=== PATIENT | female | born 1950 | race Caucasian/White ===

== ENCOUNTER 2016-09-15 17:38 | Inpatient (IN) ==
--- NOTE | 2016-09-15 17:54 | Emergency Department Note ---
Disposition Clinical Impression: CVA (cerebral vascular accident), Pneumonia, Altered mental status, Dehydration , Fever, COPD (chronic obstructive pulmonary disease), CKD (chronic kidney disease) Disposition: Admitted As Inpatient Condition: Fair Referrals: NO,PCP [Primary Care Provider] - Forms: ED Satisfaction Letter Time of Disposition: 20:01 Altered Mental Status HPI - General Chief Complaint: ED Altered Mental Status Stated Complaint: AMS, poss UTI Time Seen by Provider: 09/15/16 17:43 Source: EMS Mode of arrival: EMS Limitations: altered mental status Nursing Notes Reviewed: Yes Vital Signs Reviewed: Yes - History of Present Illness HPI Narrative: This is a 65-year-old female who was brought in for altered mental status and a fever. Patient has a leg bag Galan. Patient's oxygen was also slightly decreased. Patient will not answer any questions although she is alert. There is no family in the room to answer questions. I really have no other history on this patient. Pt was apparently verbal a couple weeks prior to this. MD complaint: altered mental status - Related Data Home Medications Medication Instructions Recorded Confirmed Amlodipine Besylate 10 mg PO DAILY 12/09/15 08/27/16 Benztropine [Cogentin] 1 mg PO BID 12/09/15 08/27/16 Carvedilol [Coreg] 25 mg PO BID 12/09/15 08/27/16 Terazosin [Hytrin] 2 mg PO HS 12/09/15 08/27/16 Simvastatin [Zocor] 40 mg PO HS 02/07/16 08/27/16 Vitamin E (Dl,Tocopheryl Acet) 400 unit PO DAILY 02/07/16 08/27/16 [Vitamin E] Aspirin Enteric Coated [Aspirin EC] 81 mg PO DAILY 05/22/16 08/27/16 Calcium Polycarbophil [Fiber-Caps] 625 mg PO QID PRN 05/22/16 08/27/16 Cholecalciferol (Vitamin D3) 50,000 unit PO QWEEK 07/21/16 08/27/16 [Vitamin D3] Docusate [Colace] 100 mg PO BID PRN 07/21/16 08/27/16 Ferrous Sulfate 325 mg PO TID 07/21/16 08/27/16 Mirtazapine [Remeron] 15 mg PO HS 07/21/16 08/27/16 Oxybutynin [Ditropan] 5 mg PO BID 07/21/16 08/27/16 Quetiapine Fumarate [Seroquel] 300 mg PO HS 07/21/16 08/27/16 RisperiDONE [Risperdal] 1 mg PO HS 07/21/16 08/27/16 Previous Rx's Medication Instructions Recorded Hydralazine HCl 100 mg PO TID 7 Days 08/20/16 Insulin DETEMIR [Levemir] 9 unit SQ BID #100 [id number] 08/29/16 Allergies Allergy/AdvReac Type Severity Reaction Status Date / Time ciprofloxacin [From Cipro] AdvReac Hives Verified 12/09/15 21:28 sulfamethoxazole AdvReac See Verified 12/09/15 21:28 [From Bactrim] Comments trimethoprim [From Bactrim] AdvReac See Verified 12/09/15 21:28 Comments Limitations: ROS unobtainable due to patients medical condition (ams) Past Medical History - Past Medical History Attestation: Yes The following information was validated with the patient. 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 history - Social History Smoking Status: Never smoker Smokeless Tobacco Status: No Alcohol use: Reports: none Drug use: Reports: none Physical Exam - General Limitations: altered mental status General appearance: alert, lethargic, obtunded, cachectic - Head Head exam: atraumatic, normocephalic, normal inspection - Eye Eye exam: Present: normal appearance, PERRL, EOMI - ENT ENT exam: normal exam, mucous membranes dry - Expanded ENT Exam External ear exam: Present: normal external inspection Mouth exam: Present: normal external inspection Teeth exam: Present: normal inspection Throat exam: Present: normal inspection - Neck Neck exam: Present: normal inspection, full ROM, trachea midline - Chest Chest inspection: Present: normal inspection, symmetric chest wall rise - Respiratory Respiratory exam: Present: normal lung sounds bilaterally - Cardiovascular Cardiovascular exam: Present: normal rhythm, tachycardia, normal heart sounds - Abdominal Exam Abdominal exam: Present: soft, Non-Tender. Absent: tenderness, distention, guarding, rebound, rigidity - Extremities Exam Extremities exam: Present: normal inspection, full ROM. Absent: tenderness, pedal edema - Expanded Upper Extremity Exam Shoulder exam: Present: normal inspection, full ROM Arm exam: Present: normal inspection, full ROM Elbow exam: Present: normal inspection, full ROM Forearm/Wrist exam: Present: normal inspection, full ROM Hand exam: Present: normal inspection, full ROM Vascular exam: Normal: capillary refill, radial pulse - Expanded Lower Extremity Exam Hip/Pelvis exam: Present: normal inspection, full ROM Upper leg exam: Present: normal inspection, full ROM Knee exam: Present: normal inspection, full ROM Lower leg exam: Present: normal inspection, full ROM Ankle exam: Present: normal inspection, full ROM Foot/toe exam: Present: normal inspection, full ROM Neurovascular/Tendon exam: Absent: motor deficit, sensory deficit, tendon deficit - Back Exam Back exam: Present: normal inspection, full ROM. Absent: tenderness - Neurological Exam Neurological exam: Present: alert. Absent: oriented X3 - Expanded Neurological Exam Coma Scale Eye Opening: Spontaneous Coma Scale Motor Response: Localizes to Pain Coma Scale Verbal Response: Incomprehensible Coma Scale Total: 11 - Psychiatric Psychiatric exam: Present: normal affect, normal mood - Skin Skin exam: Present: warm, dry, intact, normal color, other (flushed warm skin) Course - Consultations Consultation #1: I spoke with Hospitalist (Dr. Lewis) okay to admit. Time: 20:39 Vital Signs Temperature 100.7 F H 09/15/16 17:41 Pulse Rate 108 09/15/16 17:41 Respiratory Rate 14 09/15/16 17:41 Blood Pressure 192/89 09/15/16 17:41 O2 Sat by Pulse Oximetry 96 09/15/16 17:41 Temperature 100.7 F H 09/15/16 17:41 Pulse Rate 82 09/15/16 19:56 Respiratory Rate 18 09/15/16 19:56 Blood Pressure 195/83 09/15/16 19:56 O2 Sat by Pulse Oximetry 97 09/15/16 19:56 Oxygen Delivery Oxygen Delivery Nasal Cannula Altered Mental Status - Medical Records Medical records reviewed: Yes I reviewed the patient's medical records. - Lab Data Lab results reviewed: Yes I reviewed the patient's lab results. Result diagrams: 09/15/16 19:15 09/15/16 19:15 Lab Results 09/15/16 09/15/16 09/15/16 Range/Units 19:15 19:15 19:15 WBC 12.2 H (4.3-11.1) K/mcL RBC 3.26 L (3.82-4.97) M/mcL Hgb 9.0 L (11.5-15.4) g/dL Hct 30.5 L (35.3-44.9) % MCV 93.6 (83.0-100.0) fL MCH 27.6 L (28.0-33.3) pg MCHC 29.5 L (31.6-35.5) g/dL RDW 14.1 (11.5-14.5) % Plt Count 212 (140-400) K/mcL MPV 9.7 (9.4-12.4) fL Immature Gran % 0.3 (0-4) % Seg Neutrophils % 71.1 % Lymphocytes % 19.7 % Monocytes % 7.0 % Eosinophils % 1.6 % Basophils % 0.3 % Neutrophils # 8.7 (1.6-8.9) K/mcL Lymphocytes # 2.4 (0.6-4.6) K/mcL Monocytes # 0.9 (0.0-1.3) K/mcL Eosinophils # 0.2 (0.0-0.6) K/mcL Basophils # 0.0 (0.0-0.2) K/mcL Nucleated RBCs/100 WBC 0.2 H (0) /100 WBC PT 11.1 (9.4-12.1) Seconds INR 1.0 APTT 28.1 (26.0-36.0) Seconds Sodium 148 H (136-145) mEq/L Potassium 3.0 L (3.5-4.5) mEq/L Chloride 114 H (98-109) mEq/L Carbon Dioxide 29 (19-29) mEq/L BUN 21 H (7-20) mg/dL Creatinine 2.42 H (0.57-1.11) mg/dL Est GFR ( Amer) 24 L (> 60) Est GFR (Non-Af Amer) 20 L (> 60) BUN/Creatinine Ratio 9 (6-26) Glucose 159 H (70-99) mg/dL Calculated Osmolality 312 H (280-300) Lactic Acid (0.5-2.2) mmol/L Calcium 10.8 (8.6-10.8) mg/dL Total Bilirubin 0.2 (0.2-1.2) mg/dL Direct Bilirubin 0.1 (0.0-0.5) mg/dL Indirect Bilirubin 0.1 (0.0-1.2) mg/dL AST 14 (5-34) Units/L ALT 9 (0-55) Units/L Alkaline Phosphatase 57 (38-126) Units/L Troponin I (0-0.03) ng/mL B-Natriuretic Peptide (0-100) pg/mL Serum Total Protein 4.8 L (6.0-8.3) g/dL Albumin 1.7 L (3.5-5.0) g/dL Globulin 3.1 (2.4-3.5) g/dL Albumin/Globulin Ratio 0.5 L (1.1-2.2) Lipase 4 L (8-78) Units/L 09/15/16 09/15/16 09/15/16 Range/Units 19:15 19:15 19:15 WBC (4.3-11.1) K/mcL RBC (3.82-4.97) M/mcL Hgb (11.5-15.4) g/dL Hct (35.3-44.9) % MCV (83.0-100.0) fL MCH (28.0-33.3) pg MCHC (31.6-35.5) g/dL RDW (11.5-14.5) % Plt Count (140-400) K/mcL MPV (9.4-12.4) fL Immature Gran % (0-4) % Seg Neutrophils % % Lymphocytes % % Monocytes % % Eosinophils % % Basophils % % Neutrophils # (1.6-8.9) K/mcL Lymphocytes # (0.6-4.6) K/mcL Monocytes # (0.0-1.3) K/mcL Eosinophils # (0.0-0.6) K/mcL Basophils # (0.0-0.2) K/mcL Nucleated RBCs/100 WBC (0) /100 WBC PT (9.4-12.1) Seconds INR APTT (26.0-36.0) Seconds Sodium (136-145) mEq/L Potassium (3.5-4.5) mEq/L Chloride (98-109) mEq/L Carbon Dioxide (19-29) mEq/L BUN (7-20) mg/dL Creatinine (0.57-1.11) mg/dL Est GFR ( Amer) (> 60) Est GFR (Non-Af Amer) (> 60) BUN/Creatinine Ratio (6-26) Glucose (70-99) mg/dL Calculated Osmolality (280-300) Lactic Acid 0.5 (0.5-2.2) mmol/L Calcium (8.6-10.8) mg/dL Total Bilirubin (0.2-1.2) mg/dL Direct Bilirubin (0.0-0.5) mg/dL Indirect Bilirubin (0.0-1.2) mg/dL AST (5-34) Units/L ALT (0-55) Units/L Alkaline Phosphatase (38-126) Units/L Troponin I 0.07 H* (0-0.03) ng/mL B-Natriuretic Peptide 396 H (0-100) pg/mL Serum Total Protein (6.0-8.3) g/dL Albumin (3.5-5.0) g/dL Globulin (2.4-3.5) g/dL Albumin/Globulin Ratio (1.1-2.2) Lipase (8-78) Units/L - Radiology Data Radiology results reviewed: Yes I reviewed the patient's radiology results. - EKG Data EKG attestation: Yes I reviewed and interpreted this EKG. EKG shows normal: sinus rhythm Rate: normal Rhythm: NSR [place]/QRS: normal Interpretation: no acute changes, nonspecific ST-T wave changes TPA Checklist - LKW: 3-4.5 hrs Add. Contraindications Patient/family understanding: The patient/family members have been counseled and understood the risk, benefit , and alternatives of treatment.
[2016-09-15] MEDS ORDERED: 0.9 % Sodium Chloride 1,000 ML IV SCH ×2 (18:00→19:15)
[2016-09-15] MEDS ORDERED: Levofloxacin 750 MG/150 ML 750 MG/150 ML BAG IVPB ONE (19:06)
[2016-09-15] MEDS ORDERED: Meropenem 1,000 MG in 0.9 % Sodium Chloride Mini Bag 100 ML IVPB ONE (19:06)
[2016-09-15 19:27] LABS: Basophils % 0.3 %; Eosinophils # 0.2 K/mcL (0.0-0.6); Eosinophils % 1.6 %; Hematocrit 30.5 % (35.3-44.9); Immature Granulocytes % 0.3 % (0-4); Lymphocytes # 2.4 K/mcL (0.6-4.6); Lymphocytes % 19.7 %; Mean Corpuscular HGB Conc 29.5 g/dL (31.6-35.5); Mean Corpuscular Hemoglobin 27.6 pg (28.0-33.3); Mean Corpuscular Volume 93.6 fL (83.0-100.0); Mean Platelet Volume 9.7 fL (9.4-12.4); Monocytes # 0.9 K/mcL (0.0-1.3); Neutrophils # 8.7 K/mcL (1.6-8.9); Nucleated Red Blood Cells 0.2 /100 WBC (0); Platelet Count 212 K/mcL (140-400); Red Blood Count 3.26 M/mcL (3.82-4.97); Red Cell Distribution Width 14.1 % (11.5-14.5); Segmented Neutrophils % 71.1 %
[2016-09-15] MEDS ORDERED: Azithromycin 500 MG in D5% in Water 250 ML IVPB ONE (19:32)
[2016-09-15 19:33] LABS: Prothrombin Time 11.1 Seconds (9.4-12.1)
[2016-09-15 19:36] LABS: Activated Partial Thrombo Time 28.1 Seconds (26.0-36.0)
[2016-09-15 19:43] LABS: Albumin/Globulin Ratio 0.5 (1.1-2.2); Bilirubin,Direct 0.1 mg/dL (0.0-0.5); Bilirubin,Indirect 0.1 mg/dL (0.0-1.2); Bilirubin,Total 0.2 mg/dL (0.2-1.2); Calcium 10.8 mg/dL (8.6-10.8); Globulin 3.1 g/dL (2.4-3.5); Total Protein 4.8 g/dL (6.0-8.3)
[2016-09-15 19:44] LABS: Albumin 1.7 g/dL (3.5-5.0)
[2016-09-15 20:42] LABS: Thyroid Stimulating Hormone 1.056 mcIU/mL (0.350-4.840)
[2016-09-15 21:31] LABS: ABG Base Excess 4.9 mEq/L (-2.0 to 3.0); ABG HCO3 31.8 mEQ/L (21-27); ABG Oxygen Saturation 96 % (95-98); ABG PCO2 59 mmHg (35-45); ABG PH 7.34 pH Units (7.32-7.45); ABG PO2 89 mmHg (85-104); ABG TCO2 33.6 mEq/L (20-26)
[2016-09-15 21:32] LABS: Blood Gas FiO2 24 %
[2016-09-15] MEDS ORDERED: *HR* Labetalol 20 MG/4 ML SYRINGE IVP ONE ×2 (21:54→22:30)
[2016-09-15] MEDS ORDERED: *HR* Morphine 2 MG/ML SYRINGE IVP PRN (23:06)
[2016-09-15] MEDS ORDERED: Acetaminophen 325 MG TABLET PO PRN (23:06)
[2016-09-15] MEDS ORDERED: Naloxone 0.4 MG/ML INJ IVP PRN (23:06)
[2016-09-15] MEDS ORDERED: Ondansetron 4 MG/2 ML VIAL IVP PRN (23:06)
[2016-09-15] MEDS ORDERED: *HR* Dextrose 50 % in Water (Syg) 50 ML SYRINGE IVP PRN (23:10)
[2016-09-15] MEDS ORDERED: D5% in Water 1,000 ML IV PRN (23:10)
[2016-09-15] MEDS ORDERED: Dextrose Gel 15 GM PO PRN ×2 (23:10)
[2016-09-15] MEDS ORDERED: 0.9 % Sodium Chloride 1,000 ML IVC SCH (23:15)
[2016-09-16] MEDS: Insulin LISPRO 300 UNITS/3 ML VIAL SQ SCH ×4 (01:44→20:26)
[2016-09-16] MEDS: *HR* Labetalol 20 MG/4 ML SYRINGE IVP SCH ×4 (02:49→11:41)
--- NOTE | 2016-09-16 05:32 | Internal Med History&Physical ---
Date of Encounter: 09/15/16 Time of Encounter: 21:00 Assessment and Plan (1) Aspiration pneumonia due to gastric secretions Current visit: Yes Status: Acute Given the altered mental status and left lower lobe pneumonia I suspect this is very likely aspiration. We will treat her with antibiotics to cover gram- negative rods and anaerobic bacteria. Given her recent admission earlier this month for hypoglycemia I will treat her with cefepime and vancomycin for healthcare associated pneumonia. Follow blood cultures. Provide oxygen supplementation by nasal cannula. She is at high risk for morbidity mortality and complications due to her change acute change in mental status. Qualifiers: Laterality: left Lung location: lower lobe of lung Qualified Code(s): J69.0 - Pneumonitis due to inhalation of food and vomit (2) CKD (chronic kidney disease) Current visit: Yes Status: Acute Avoid nephrotoxins. Monitor BUN and creatinine. Adjust medication dosing according to GFR. Qualifiers: Chronic kidney disease stage: stage 4 (severe) Qualified Code(s): N18.4 - Chronic kidney disease, stage 4 (severe) (3) CVA (cerebral vascular accident) Current visit: Yes Status: Acute Neuro checks. PTOT. Aspirin. MRI brain, MRA of the head. Echocardiogram. Qualifiers: CVA mechanism: stenosis Precerebral and cerebral artery: anterior cerebral artery Laterality of affected vessel: left Qualified Code(s): I63.522 - Cerebral infarction due to unspecified occlusion or stenosis of left anterior cerebral artery (4) Dehydration Current visit: Yes Status: Acute Gentle IV fluid hydration. (5) DVT prophylaxis Current visit: Yes Status: Acute Subcutaneous heparin. Internal Medicine - H&P: HPI Chief complaint: Altered mental status Admitted From: Emergency Dept Plans for Post Hospital Care: Transfer [facility] History of present illness: Ms. Hayes is a 65 year old female with past medical history significant for schizophrenia who was brought to the hospital for altered mental status. She cannot provide any history, she is minimally verbal, severely confused and does not answer questions appropriately. History was obtained from the emergency department documentation. There is no unavailable at this time to complete the history. Timing of the onset was unclear which was brought by EMS from home for altered mental status and low-grade fever. She was also noted in the emergency department to be mildly hypoxic Review of systems past medical, social and family history could not be obtained due to altered mental status. Past Med Surg Social Fam HX - Past Medical History Medical history: cirrhosis, COPD, diabetes, hypertension, renal disease, other Psychiatric history: anxiety, depression, schizophrenia - Past Surgical History Surgical History: cholecystectomy - Social History Smoking Status: Never smoker Smokeless Tobacco Status: No Alcohol use: none Drug use: none - Family History Father Living Status: Hx Family Cardiac Disorders: Yes Hx Family Respiratory Disorders: No Hx Family Cancer: No Hx Family Neurologic Disorders: No Mother Living Status: Hx Family Cancer: Yes Internal Medicine - H&P: Meds Amlodipine Besylate 10 mg PO DAILY 12/09/15 [History] Benztropine [Cogentin] 1 mg PO BID 12/09/15 [History] Carvedilol [Coreg] 25 mg PO BID 12/09/15 [History] Terazosin [Hytrin] 2 mg PO HS 12/09/15 [History] Simvastatin [Zocor] 40 mg PO HS 02/07/16 [History] Vitamin E (Dl,Tocopheryl Acet) [Vitamin E] 400 unit PO DAILY 02/07/16 [History] Aspirin Enteric Coated [Aspirin EC] 81 mg PO DAILY 05/22/16 [History] Calcium Polycarbophil [Fiber-Caps] 625 mg PO QID PRN 05/22/16 [History] Cholecalciferol (Vitamin D3) [Vitamin D3] 50,000 unit PO QWEEK 07/21/16 [History ] Docusate [Colace] 100 mg PO BID PRN 07/21/16 [History] Ferrous Sulfate 325 mg PO TID 07/21/16 [History] Mirtazapine [Remeron] 15 mg PO HS 07/21/16 [History] Oxybutynin [Ditropan] 5 mg PO BID 07/21/16 [History] Quetiapine Fumarate [Seroquel] 300 mg PO HS 07/21/16 [History] RisperiDONE [Risperdal] 1 mg PO HS 07/21/16 [History] Hydralazine HCl 100 mg PO TID 7 Days 08/20/16 [Rx] Insulin DETEMIR [Levemir] 9 unit SQ BID #100 [id number] 08/29/16 [Rx] Allergies ciprofloxacin [From Cipro] Adverse Reaction (Verified 12/09/15 21:28) Hives sulfamethoxazole [From Bactrim] Adverse Reaction (Verified 12/09/15 21:28) See Comments trimethoprim [From Bactrim] Adverse Reaction (Verified 12/09/15 21:28) See Comments All Systems PM: A 10-system review of systems was performed and is negative for pertinent findings except as documented above in the HPI. - Constitutional Vitals: Temp Pulse Resp BP Pulse Ox 98.3 F 75 18 184/101 96 09/16/16 04:07 09/16/16 04:07 09/16/16 04:07 09/16/16 04:07 09/16/16 04:07 General appearance: Present: A&O X 1 - Eye Eye exam: Present: PERRL, conjuntiva pink, sclera anicteric Pupils: Present: PERRL - Neck Neck exam general surgery: Present: supple, trachea midline. Absent: lymphadenopathy - Respiratory Respiratory exam: Present: CTAB. Absent: accessory muscle use, rales, rhonchi, wheezes - Cardiovascular Cardiovascular exam: Present: RRR, +S1, +S2, systolic murmur. Absent: diastolic murmur, gallop, rubs - GI/Abdominal GI/Abdominal exam: Present: normal bowel sounds, soft, no peritoneal signs. Absent: distended, tenderness - Neurological Exam Neurological exam: Present: CN II-XII intact, speech deficit. Absent: pronater drift, facial droop Additional comments: Does not fully cooperate for neurologic exam. Systems Architecture Analyst are equal bilaterally however lower extremities strength is weak bilaterally, more so in the right lower extremity hip flexion. - Skin Skin exam: Present: dry, intact Internal Med - H&P Results - Labs CBC & Chem 7: 09/15/16 19:15 09/15/16 19:15 Labs: Cardiac Enzymes 09/16/16 Range/Units 01:30 Troponin I 0.06 H* (0-0.03) ng/mL - EKG Data -: EKG Interpreted by Myself EKG shows normal: sinus rhythm Rate: normal
[2016-09-16 05:33] LABS: Calcium 10.4 mg/dL (8.6-10.8); Potassium 3.4 mEq/L (3.5-4.5)
[2016-09-16 05:44] LABS: Bilirubin,Urine Negative (Negative); Blood,Urine Negative (Negative); Clarity,Urine Clear (Clear); Color,Urine Yellow (Yellow); Glucose,Urine (UA) 250 mg/dL (Normal); Ketones,Urine Negative (Negative); Leukocyte Esterase,Urine Negative (Negative); Nitrite,Urine Negative (Negative); PH,Urine 6.5 pH Units (5.0-8.0); Protein,Urine >=1000 mg/dL (Neg-Trace); Specific Gravity,Urine 1.015 (1.010-1.025); Urobilinogen,Urine Normal (Normal)
[2016-09-16] MEDS: *HR* Heparin 5,000 UNIT/ML VIAL SQ SCH ×2 (05:57→20:29)
[2016-09-16] MEDS ORDERED: Vancomycin 1,000 MG in D5% in Water 250 ML IVPB SCH (06:00)
[2016-09-16 06:36] LABS: Basophils % 0.2 %; Eosinophils # 0.5 K/mcL (0.0-0.6); Eosinophils % 3.9 %; Hematocrit 33.1 % (35.3-44.9); Hemoglobin 9.8 g/dL (11.5-15.4); Immature Granulocytes % 0.4 % (0-4); Lymphocytes # 2.8 K/mcL (0.6-4.6); Lymphocytes % 20.2 %; Mean Corpuscular HGB Conc 29.6 g/dL (31.6-35.5); Mean Corpuscular Hemoglobin 27.8 pg (28.0-33.3); Mean Corpuscular Volume 93.8 fL (83.0-100.0); Mean Platelet Volume 9.6 fL (9.4-12.4); Monocytes # 1.2 K/mcL (0.0-1.3); Monocytes % 8.5 %; Neutrophils # 9.3 K/mcL (1.6-8.9); Platelet Count 217 K/mcL (140-400); Red Blood Count 3.53 M/mcL (3.82-4.97); Red Cell Distribution Width 13.8 % (11.5-14.5); Segmented Neutrophils % 66.8 %
[2016-09-16] MEDS ORDERED: Vancomycin 1,000 MG in D5% in Water 250 ML IVPB ONE (07:00)
--- NOTE | 2016-09-16 09:00 | Internal Med Progress Note ---
<Guanako Lewis - Last Filed: 09/16/16 14:44> Date of Encounter: 09/16/16 Time of Encounter: 08:50 - Assessment and plan (1) Altered mental status Current Visit: Yes Status: Chronic Assessment and plan: Unsure how far she is from her baseline as there is no family at bedside, but she does have h/o Shizophrenia Continue with Neurochecks and appreciate recommendations from PT/OT Currently NPO now until speech therapy conducts formal swallow evaluation Qualifiers: Qualified Code(s): R41.82 - Altered mental status, unspecified (2) CVA (cerebral vascular accident) Current Visit: Yes Status: Acute Assessment and plan: Head CT shows possible subacute infarct of right frontal region Follow up MRI 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 Neurology consulted, appreciate recommendations Continue with ASA, Lipitor, Labetalol uncontrolled hypertension Qualifiers: CVA mechanism: stenosis Precerebral and cerebral artery: anterior cerebral artery Laterality of affected vessel: left Qualified Code(s): I63.522 - Cerebral infarction due to unspecified occlusion or stenosis of left anterior cerebral artery (3) Aspiration pneumonia due to gastric secretions Current Visit: Yes Status: Acute Assessment and plan: Continue with vancomycin and cefepime for treatment of suspected aspiration pneumonia of left lower lung lobe Blood cultures pending, await results prior to de-escalation White count slightly higher today but she has remained afebrile, non-tachycardic Qualifiers: Laterality: left Lung location: lower lobe of lung Qualified Code(s): J69.0 - Pneumonitis due to inhalation of food and vomit (4) CKD (chronic kidney disease) Current Visit: Yes Status: Acute Assessment and plan: Cr this morning of 2.16 close to his baseline of about 2.5; currently getting IVF as she is NPO Avoid nephrotoxins, Monitor BUN and creatinine, Adujust medication dosing according to GFR Qualifiers: Chronic kidney disease stage: stage 4 (severe) Qualified Code(s): N18.4 - Chronic kidney disease, stage 4 (severe) (5) DVT prophylaxis Current Visit: Yes Status: Acute Assessment and plan: Heparin 5000 units BID - Subjective Interval history: Patient's altered mental status persists, but unsure if this is near her baseline as she has h/o Schizophrenia. She is minimally verbal, confused, and does not answer questions appropriately. She is otherwise pleasant and seems to be in good spirits. Does respond to commands appropriately. - Constitutional Vitals: Temp Pulse Resp BP Pulse Ox 98.1 F 77 16 208/107 96 09/16/16 07:00 09/16/16 07:00 09/16/16 07:00 09/16/16 07:00 09/16/16 07:00 General appearance: Present: A&O X 1, pleasant, no acute distress. Absent: answers questions appropriately (difficult to understand) - Head Head exam: Present: atraumatic, normocephalic - Eye Eye exam: Present: conjuntiva pink, sclera anicteric - Neck Neck exam general surgery: Present: supple, trachea midline. Absent: lymphadenopathy - Respiratory Respiratory exam: Present: CTAB. Absent: accessory muscle use, rales, rhonchi, wheezes - Cardiovascular Cardiovascular exam: Present: RRR, +S1, +S2. Absent: diastolic murmur, gallop, rubs, systolic murmur - GI/Abdominal GI/Abdominal exam: Present: normal bowel sounds, soft, no peritoneal signs. Absent: distended, tenderness - Extremities Exam Extremities exam: Present: warm, radial pulses palpable and symetrical. Absent : calf tenderness, cyanotic, pedal edema - Neurological Exam Neurological exam: Present: altered, no focal deficits, speech deficit. Absent : facial droop - Expanded Neurological Exam Speech: Present: garbled - Skin Skin exam: Present: dry, intact Internal Medicine: Result - Labs CBC & Chem 7: 09/16/16 06:21 09/16/16 04:50 Labs: Short CBC 09/16/16 Range/Units 06:21 WBC 13.9 H (4.3-11.1) K/mcL Hgb 9.8 L (11.5-15.4) g/dL Hct 33.1 L (35.3-44.9) % Plt Count 217 (140-400) K/mcL Neutrophils # 9.3 H (1.6-8.9) K/mcL BMP 09/16/16 04:50 Sodium 144 Potassium 3.4 L Chloride 112 H Carbon Dioxide 24 BUN 21 H Creatinine 2.16 H Glucose 147 H Calcium 10.4 Cardiac Enzymes 09/16/16 09/16/16 Range/Units 01:30 04:50 Troponin I 0.06 H* 0.04 H* (0-0.03) ng/mL Urine 09/16/16 Range/Units 05:10 Urine Color Yellow (Yellow) Urine Clarity Clear (Clear) Urine pH 6.5 (5.0-8.0) pH Units Ur Specific [place] 1.015 (1.010-1.025) Urine Protein >=1000 H (Neg-Trace) mg/dL Urine Glucose (UA) 250 H (Normal) mg/dL - ABG Interpretation ABG results: ABG ABG pH 7.34 pH Units (7.32-7.45) 09/15/16 21:15 ABG pCO2 59 mmHg (35-45) H 09/15/16 21:15 ABG pO2 89 mmHg (85-104) 09/15/16 21:15 ABG O2 Saturation 96 % (95-98) 09/15/16 21:15 PT/INR, D-dimer PT 11.1 Seconds (9.4-12.1) 09/15/16 19:15 Consult Discharge Plan - Plan Referrals: NO,PCP [Primary Care Provider] - <Jose Diaz - Last Filed: 09/16/16 19:13> Date of Encounter: 09/16/16 - Assessment and plan (1) Acute metabolic encephalopathy Current Visit: No Status: Acute (2) Schizophrenia Current Visit: No Status: Chronic Qualifiers: Schizophrenia type: unspecified Qualified Code(s): F20.9 - Schizophrenia, unspecified (3) Meningioma Current Visit: Yes Status: Suspected - Constitutional Vitals: Temp Pulse Resp BP Pulse Ox 98.1 F 79 15 217/107 96 09/16/16 07:00 09/16/16 15:00 09/16/16 15:00 09/16/16 15:00 09/16/16 15:00 Internal Medicine: Result - Labs CBC & Chem 7: 09/16/16 06:21 09/16/16 04:50 - ABG Interpretation ABG results: ABG ABG pH 7.34 pH Units (7.32-7.45) 09/15/16 21:15 ABG pCO2 59 mmHg (35-45) H 09/15/16 21:15 ABG pO2 89 mmHg (85-104) 09/15/16 21:15 ABG O2 Saturation 96 % (95-98) 09/15/16 21:15 PT/INR, D-dimer PT 11.1 Seconds (9.4-12.1) 09/15/16 19:15 - Attending Attestation I examined this patient and my medical decision-making was reviewed with the Resident Physician. I agree with the documented findings, disposition and treatment plan as described except to the extent set forth below. Ms. Hayes is currently admitted for acute change in mental status. She remains moderate to high risk due to potential neurologic compromise. Ms. Hayes is more alert and interactive today. She appears to have had this episode before. 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 No CP or SOB. No cough. No GI symptoms. Exam Alert. Answers questions intermittently Heart reg Lungs clear Abd soft I/P 1. Acute metabolic encephalopathy - appears to be improving 2. Cerebral meningioma 3. Aspiration pneumonia 4. CKD 4 5. Schizophrenia Further diagnoses and plan as above.
[2016-09-16] MEDS ORDERED: *HR* Labetalol 20 MG/4 ML SYRINGE IVP PRN (11:45)
[2016-09-16] MEDS: Cefepime HCl 2,000 MG in D5% in Water (Mini-Bag+) 100 ML IVPB SCH (13:30)
--- NOTE | 2016-09-16 15:51 | Electrocardiograph Report ---
[facility] Test Date: 2016-09-15 Pat Name: Grace Hayes Department: 105 Room: [facility] Gender: F Manager Electrical: LAN : 1950 Requested By: Nikolay Nunes Order Number: [id number] Reading MD: Yumiko Montes Measurements Intervals [place] Rate: 92 P: 61 AK: 146 QRS: 26 QRSD: 90 T: 31 QT: 361 QTc: 411 Interpretive Statements SINUS RHYTHM NONSPECIFIC T-WAVE ABNORMALITY Electronically Signed On 09-16-16 15:48:52 EST by Yumiko Montes
--- NOTE | 2016-09-16 16:52 | Neurology - Consult Note ---
Date of Encounter: 09/16/16 Time of Encounter: 16:47 Assessment and Plan (1) Altered mental status Current Visit: Yes Status: Chronic Likely secondary to feverish illness and she is improving. NO acute intracranial abnormality. 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 MRI is highly degraded due to motion artifact but no significant mass effects that can be appreciated, and no significant changes can be seen when compared to previous MRI of brain during 2013. However, slight growth of meningioma can not be excluded. No emergency measures need to be done at this time. Patient is to be followed up in neurology clinic in few weeks and repeat MRI of brain with and without contrast can be done at that time. Qualifiers: Qualified Code(s): R41.82 - Altered mental status, unspecified History of Present Illness Chief complaint: meningioma HPI: Ms. Hayes is a 65 year old female with known history of schizophrenia, frontal lobe meningioma, chronic migraine. Parkinsonism, tardive dyskinesis who presented to ER with acute mental status changes. Father states that she eats like a horse but suddenly stopped eating. She developed a fever as well and became hardly talking. She has no significant focal weakness. Neurology was consulted due to finding of frontal olfactory meningioma which has been known to me. She was kept clinical monitoring since she has remained asymptomatic over the last few years per repeated imaging studies. There is mentioning of mass effect of the frontal lobes right more than left but the overal size is still 2 cm in diameter which is stable compare to previous study. Patient denies any specific discomforts. Father feels that she looks much better than yesterday. Afebrile. Past Med Surg Social Fam HX - Past Medical History Medical history: cirrhosis, COPD, diabetes, hypertension, renal disease, other Psychiatric history: anxiety, depression, schizophrenia - Past Surgical History Surgical History: cholecystectomy - Social History Smoking Status: Never smoker Smokeless Tobacco Status: No Alcohol use: none Drug use: none - Family History Father Living Status: Hx Family Cardiac Disorders: Yes Hx Family Respiratory Disorders: No Hx Family Cancer: No Hx Family Neurologic Disorders: No Mother Living Status: Hx Family Cancer: Yes Medications and Allergies Benztropine [Cogentin] 1 mg PO BID 12/09/15 [History] Carvedilol [Coreg] 25 mg PO BID 12/09/15 [History] Terazosin [Hytrin] 2 mg PO HS 12/09/15 [History] Simvastatin [Zocor] 20 mg PO HS 02/07/16 [History] Calcium Polycarbophil [Fiber-Caps] 625 mg PO QID PRN 05/22/16 [History] Cholecalciferol (Vitamin D3) [Vitamin D3] 50,000 unit PO QWEEK 07/21/16 [History ] Docusate [Colace] 100 mg PO DAILY PRN 07/21/16 [History] Ferrous Sulfate 325 mg PO TID 07/21/16 [History] Mirtazapine [Remeron] 15 mg PO HS 07/21/16 [History] Oxybutynin [Ditropan] 5 mg PO BID 07/21/16 [History] Quetiapine Fumarate [Seroquel] 200 mg PO HS 07/21/16 [History] RisperiDONE [Risperdal] 1 mg PO HS 07/21/16 [History] Hydralazine HCl 100 mg PO TID 7 Days 08/20/16 [Rx] Albuterol Sulfate [Albuterol Inhaler] 2 puff IH Q4HR 09/16/16 [History] Budesonide/Formoterol 160/4.5 [Symbicort 160/4.5] 2 puff IH BID 09/16/16 [ History] Furosemide [Lasix] 20 mg PO DAILY 09/16/16 [History] Insulin DETEMIR [Levemir] 6 unit SQ BID 09/16/16 [History] Ipratropium [Atrovent Inhaler] 2 puff IH QID 09/16/16 [History] Lisinopril [Zestril] 10 mg PO DAILY 09/16/16 [History] Polyethylene Glycol 3350 [MiraLAX] 17 gm PO DAILY 09/16/16 [History] Allergies ciprofloxacin [From Cipro] Adverse Reaction (Verified 12/09/15 21:28) Hives sulfamethoxazole [From Bactrim] Adverse Reaction (Verified 12/09/15 21:28) See Comments trimethoprim [From Bactrim] Adverse Reaction (Verified 12/09/15 21:28) See Comments All Systems: A 10-system review of systems was performed and is negative for pertinent findings except as documented above in the HPI. Physical Examination - Vital Signs Vital Signs: Initial Vital Signs Temp Pulse Resp BP Pulse Ox 100.7 F H 108 14 192/89 96 09/15/16 17:41 09/15/16 17:41 09/15/16 17:41 09/15/16 17:41 09/15/16 17:41 - Constitutional General appearance: comfortable - Neurologic Sensorimotor examination: other (Grossly intact) Detailed motor examination: grossly full strength in all extremities Detailed sensory examination: other (Difficult to assess due to altered mental status but no gross abnormality noted) Posture: other (Orobuccal dyskinesis noted) Reflex and gait examination: other (Gait not assessed) Reflexes: Biceps: 1+, Triceps: 1+, Brachioradialis: 1+, Patella: 1+ Mental Status Examination: awake, alert, oriented to person, follows commands appropriately, answers questions appropriately, makes eye contact, follows simple commands Cranial nerve examination: PERRL, EOMI, visual jaime intact, corneal reflexes brisk symmetrically, sensory to face intact, mastication intact, no facial asymmetry is present, no dysarthria, hearing is intact symmetrically, soft palate elevates bilaterally upon phonation, gag reflex intact, flexes SCM and trapezius muscles symmetrically with full power, tongue protrudes midline Results - Laboratory Findings CBC and BMP: 09/16/16 06:21 09/16/16 04:50 Abnormal lab findings: Abnormal lab results WBC 13.9 K/mcL (4.3-11.1) H 09/16/16 06:21 RBC 3.53 M/mcL (3.82-4.97) L 09/16/16 06:21 Hgb 9.8 g/dL (11.5-15.4) L 09/16/16 06:21 Hct 33.1 % (35.3-44.9) L 09/16/16 06:21 MCH 27.8 pg (28.0-33.3) L 09/16/16 06:21 MCHC 29.6 g/dL (31.6-35.5) L 09/16/16 06:21 Neutrophils # 9.3 K/mcL (1.6-8.9) H 09/16/16 06:21 Nucleated RBCs/100 WBC 0.2 /100 WBC (0) H 09/15/16 19:15 ABG pCO2 59 mmHg (35-45) H 09/15/16 21:15 ABG HCO3 31.8 mEQ/L (21-27) H 09/15/16 21:15 ABG Total CO2 33.6 mEq/L (20-26) H 09/15/16 21:15 ABG Base Excess 4.9 mEq/L (-2.0 to 3.0) H 09/15/16 21:15 Potassium 3.4 mEq/L (3.5-4.5) L 09/16/16 04:50 Chloride 112 mEq/L (98-109) H 09/16/16 04:50 BUN 21 mg/dL (7-20) H 09/16/16 04:50 Creatinine 2.16 mg/dL (0.57-1.11) H 09/16/16 04:50 Est GFR ( Amer) 28 (> 60) L 09/16/16 04:50 Est GFR (Non-Af Amer) 23 (> 60) L 09/16/16 04:50 Glucose 147 mg/dL (70-99) H 09/16/16 04:50 POC Glucose 129 (58-89) H 09/16/16 05:42 Calculated Osmolality 304 (280-300) H 09/16/16 04:50 Ammonia 15 mcmol/L (18-72) L 09/16/16 01:30 Troponin I 0.04 ng/mL (0-0.03) H* 09/16/16 04:50 B-Natriuretic Peptide 396 pg/mL (0-100) H 09/15/16 19:15 Serum Total Protein 4.8 g/dL (6.0-8.3) L 09/15/16 19:15 Albumin 1.7 g/dL (3.5-5.0) L 09/15/16 19:15 Albumin/Globulin Ratio 0.5 (1.1-2.2) L 09/15/16 19:15 Lipase 4 Units/L (8-78) L 09/15/16 19:15 Urine Protein >=1000 mg/dL (Neg-Trace) H 09/16/16 05:10 Urine Glucose (UA) 250 mg/dL (Normal) H 09/16/16 05:10 Urine Microscopic WBC 3-5 per hpf (0-3) H 09/16/16 05:10 Consult Discharge Plan - Plan Referrals: NO,PCP [Primary Care Provider] -
[2016-09-17] MEDS: Insulin LISPRO 300 UNITS/3 ML VIAL SQ SCH ×4 (00:42→18:30)
[2016-09-17 05:19] LABS: Basophils % 0.3 %; Eosinophils # 0.5 K/mcL (0.0-0.6); Eosinophils % 4.4 %; Eosinophils % 4.6 %; Hematocrit 27.2 % (35.3-44.9); Hematocrit 28.4 % (35.3-44.9); Hemoglobin 8.4 g/dL (11.5-15.4); Hemoglobin 8.6 g/dL (11.5-15.4); Immature Granulocytes % 0.2 % (0-4); Immature Granulocytes % 0.3 % (0-4); Lymphocytes # 3.2 K/mcL (0.6-4.6); Lymphocytes # 3.3 K/mcL (0.6-4.6); Lymphocytes % 27.8 %; Mean Corpuscular HGB Conc 30.3 g/dL (31.6-35.5); Mean Corpuscular HGB Conc 30.9 g/dL (31.6-35.5); Mean Corpuscular Hemoglobin 28.7 pg (28.0-33.3); Mean Corpuscular Volume 92.5 fL (83.0-100.0); Mean Corpuscular Volume 92.8 fL (83.0-100.0); Mean Platelet Volume 9.7 fL (9.4-12.4); Mean Platelet Volume 9.8 fL (9.4-12.4); Monocytes # 0.8 K/mcL (0.0-1.3); Monocytes # 0.9 K/mcL (0.0-1.3); Monocytes % 7.1 %; Monocytes % 7.5 %; Neutrophils # 6.8 K/mcL (1.6-8.9); Neutrophils # 7.1 K/mcL (1.6-8.9); Platelet Count 180 K/mcL (140-400); Platelet Count 190 K/mcL (140-400); Red Blood Count 2.93 M/mcL (3.82-4.97); Red Blood Count 3.07 M/mcL (3.82-4.97); Red Cell Distribution Width 13.6 % (11.5-14.5); Red Cell Distribution Width 13.8 % (11.5-14.5); Segmented Neutrophils % 59.8 %; Segmented Neutrophils % 59.9 %
[2016-09-17 05:43] LABS: Calcium 9.5 mg/dL (8.6-10.8); Potassium 2.7 mEq/L (3.5-4.5)
--- NOTE | 2016-09-17 06:28 | Event Note ---
Date of Encounter: 09/17/16 Time of Encounter: 06:00 Paged by nurse with concern for decline in mentation, not answering questions or following verbal commands. Patient received hydralazine before I arrived for BP systolic of 234. On evaluation, patient resting in bed, verbal at times but inappropriate responses. Patient weak, but able to follow simple commands and move all extremities. Ordered repeat CT for concern for acute bleeding/CVA. Nurse also had concerns for blood present in stool. Occult blood negative. Will follow H/H.
[2016-09-17] MEDS: Vancomycin 500 MG in D5% in Water (Mini-Bag+) 100 ML IVPB SCH (09:53)
[2016-09-17] MEDS: *HR* Heparin 5,000 UNIT/ML VIAL SQ SCH ×2 (09:53→17:49)
--- NOTE | 2016-09-17 09:58 | Internal Med Progress Note ---
<JoshuaGuanako - Last Filed: 09/17/16 10:34> Date of Encounter: 09/17/16 Time of Encounter: 09:57 - Assessment and plan (1) Altered mental status Current Visit: Yes Status: Chronic Assessment and plan: Patient was minimally responsive this morning but did open eyes to sternal rub Likely due to psychiatric etiology given her history of Schizophrenia, but cannot rule out infectious process Will obtain ABG results and likely start on Geodon as her other medications are PO Repeat head CT last night showed no acute abnormalities, will order carotid duplex Appreciate recommendations from PT/OT Speech therapy conducted formal swallow evaluation and she is on mechanically altered diet Qualifiers: Qualified Code(s): R41.82 - Altered mental status, unspecified (2) Aspiration pneumonia due to gastric secretions Current Visit: Yes Status: Acute Assessment and plan: Continue with vancomycin and cefepime for treatment of suspected aspiration pneumonia of left lower lung lobe Blood cultures negative thus far, await final results prior to de-escalation White count slightly lower today but she has remained afebrile, non-tachycardic Qualifiers: Laterality: left Lung location: lower lobe of lung Qualified Code(s): J69.0 - Pneumonitis due to inhalation of food and vomit (3) Hypokalemia Current Visit: No Status: Acute Assessment and plan: Per RN, patient was disimpacted last night and had 6 loose episodes of stools, likely causing her hypokalemia Will replace with two doses of 40 mEq potassium and recheck levels this afternoon (4) CKD (chronic kidney disease) Current Visit: Yes Status: Acute Assessment and plan: Cr improved to 1.87 this morning from 2.16; currently getting IVF at lower dose of 60 ml/hr as she has poor oral intake Avoid nephrotoxins, Monitor BUN and creatinine Qualifiers: Chronic kidney disease stage: stage 4 (severe) Qualified Code(s): N18.4 - Chronic kidney disease, stage 4 (severe) (5) Meningioma Current Visit: Yes Status: Acute Assessment and plan: 2 cm mass seen on MRI was already known by neurology, who will follow up with her as outpatient (6) DVT prophylaxis Current Visit: Yes Status: Acute Assessment and plan: Heparin 5000 units BID - Subjective Interval history: Patient's altered mental status worsened last night and she remains minimally responsive this morning. Does respond to sternal rub by opening eyes, but is non -verbal and does not follow commands. She has no family at bedside. - Constitutional Vitals: Temp Pulse Resp BP Pulse Ox 98.7 F 79 18 177/144 96 09/17/16 00:00 09/17/16 07:00 09/17/16 07:00 09/17/16 07:00 09/17/16 07:00 General appearance: Present: A&O X 0, disheveled, pleasant. Absent: answers questions appropriately (non-verbal this morning) - Head Head exam: Present: atraumatic, normocephalic - Eye Eye exam: Present: PERRL, conjuntiva pink, sclera anicteric - Neck Neck exam general surgery: Present: supple, trachea midline. Absent: lymphadenopathy - Respiratory Respiratory exam: Present: CTAB. Absent: accessory muscle use, rales, rhonchi, wheezes - Cardiovascular Cardiovascular exam: Present: RRR, +S1, +S2. Absent: diastolic murmur, gallop, rubs, systolic murmur - GI/Abdominal GI/Abdominal exam: Present: normal bowel sounds, soft, no peritoneal signs. Absent: distended, tenderness - Extremities Exam Extremities exam: Present: warm, radial pulses palpable and symetrical. Absent : calf tenderness, cyanotic, pedal edema - Neurological Exam Neurological exam: Present: altered, speech deficit. Absent: oriented X3, pronater drift, facial droop - Skin Skin exam: Present: dry, intact Internal Medicine: Result - Labs CBC & Chem 7: 09/17/16 05:00 09/17/16 05:00 Labs: Short CBC 09/17/16 09/17/16 Range/Units 05:00 05:00 WBC 11.8 H 11.4 H (4.3-11.1) K/mcL Hgb 8.6 L 8.4 L (11.5-15.4) g/dL Hct 28.4 L 27.2 L (35.3-44.9) % Plt Count 190 180 (140-400) K/mcL Neutrophils # 7.1 6.8 (1.6-8.9) K/mcL BMP 09/17/16 05:00 Sodium 146 H Potassium 2.7 L Chloride 116 H Carbon Dioxide 27 BUN 21 H Creatinine 1.87 H Glucose 105 H Calcium 9.5 - ABG Interpretation ABG results: ABG ABG pH 7.34 pH Units (7.32-7.45) 09/15/16 21:15 ABG pCO2 59 mmHg (35-45) H 09/15/16 21:15 ABG pO2 89 mmHg (85-104) 09/15/16 21:15 ABG O2 Saturation 96 % (95-98) 09/15/16 21:15 PT/INR, D-dimer PT 11.1 Seconds (9.4-12.1) 09/15/16 19:15 - Impressions Impressions Head CT 09/17/16 06:07 IMPRESSION: 1. No definite acute intracranial abnormality. Of note, patient motion partially limits evaluation. 2. Unchanged 2.4 cm x 2.1 cm likely extra-axial mass along the inferior aspect of the frontal lobes with unchanged associated frontal lobe vasogenic edema. Please refer to the comparison MRI for further detail. 3. Mild right maxillary sinus disease, possibly with superimposed acute sinusitis. D/ / Guille Kirby MD / Guille Kirby MD Interpreting Provider: Guille Kirby MD Consult Discharge Plan - Plan Referrals: NO,PCP [Primary Care Provider] - <Jose Diaz - Last Filed: 09/17/16 18:51> Date of Encounter: 09/17/16 - Assessment and plan (1) Acute metabolic encephalopathy Current Visit: No Status: Acute (2) Schizophrenia Current Visit: No Status: Chronic Qualifiers: Schizophrenia type: unspecified Qualified Code(s): F20.9 - Schizophrenia, unspecified (3) Meningioma Current Visit: Yes Status: Acute (4) Hypokalemia Current Visit: No Status: Acute (5) Hypomagnesemia Current Visit: Yes Status: Acute Assessment and plan: Replace. (6) Constipation by delayed colonic transit Current Visit: Yes Status: Acute Assessment and plan: Continue meds (7) CKD (chronic kidney disease) Current Visit: Yes Status: Acute Qualifiers: Chronic kidney disease stage: stage 4 (severe) Qualified Code(s): N18.4 - Chronic kidney disease, stage 4 (severe) (8) Tobacco abuse Current Visit: No Status: Chronic - Constitutional Vitals: Temp Pulse Resp BP Pulse Ox 97.8 F 81 16 192/84 96 09/17/16 15:00 09/17/16 15:00 09/17/16 15:00 09/17/16 15:00 09/17/16 15:00 Internal Medicine: Result - Labs CBC & Chem 7: 09/17/16 14:40 09/17/16 14:40 Labs: Short CBC 09/17/16 09/17/16 09/17/16 Range/Units 05:00 05:00 14:40 WBC 11.8 H 11.4 H (4.3-11.1) K/mcL Hgb 8.6 L 8.4 L 9.6 L (11.5-15.4) g/dL Hct 28.4 L 27.2 L 31.3 L (35.3-44.9) % Plt Count 190 180 (140-400) K/mcL Neutrophils # 7.1 6.8 (1.6-8.9) K/mcL BMP 09/17/16 09/17/16 05:00 14:40 Sodium 146 H 146 H Potassium 2.7 L 2.9 L Chloride 116 H 114 H Carbon Dioxide 27 27 BUN 21 H 20 Creatinine 1.87 H 2.00 H Glucose 105 H 192 H Calcium 9.5 9.4 Cardiac Enzymes 09/17/16 Range/Units 05:00 Troponin I 0.03 (0-0.03) ng/mL - ABG Interpretation ABG results: ABG ABG pH 7.34 pH Units (7.32-7.45) 09/15/16 21:15 ABG pCO2 59 mmHg (35-45) H 09/15/16 21:15 ABG pO2 89 mmHg (85-104) 09/15/16 21:15 ABG O2 Saturation 96 % (95-98) 09/15/16 21:15 PT/INR, D-dimer PT 11.1 Seconds (9.4-12.1) 09/15/16 19:15 - Impressions Impressions Head CT 09/17/16 06:07 IMPRESSION: 1. No definite acute intracranial abnormality. Of note, patient motion partially limits evaluation. 2. Unchanged 2.4 cm x 2.1 cm likely extra-axial mass along the inferior aspect of the frontal lobes with unchanged associated frontal lobe vasogenic edema. Please refer to the comparison MRI for further detail. 3. Mild right maxillary sinus disease, possibly with superimposed acute sinusitis. D/ / Guille Kirby MD / Guille Kirby MD Interpreting Provider: Guille Kirby MD - Attending Attestation I examined this patient and my medical decision-making was reviewed with the Resident Physician. I agree with the documented findings, disposition and treatment plan as described except to the extent set forth below. Ms. Hayes is currently admitted for acute change in mental status. She remains moderate to high risk due to potential neurologic compromise. Ms. Hayes was less responsive this morning but better this afternoon. Her "" and father were here at bedside and updated by me. She answered some questions this afternoon. Denies pain or dyspnea. Very constipated yesterday and ultimately had multiple bowel movements. Exam Alert. Some random movements noted Heart reg Lungs clear Abd soft No edema Current labs reviewed I/P 1. Hypokalemia - replace 2. Hypomagnesemia - replace 3. Constipation Further diagnoses and plan as above.
[2016-09-17] MEDS ORDERED: Aminoglycoside Consult 1 EACH MC ONE (10:20)
[2016-09-17] MEDS: 0.9 % Sodium Chloride 1,000 ML IVC SCH ×2 (11:45→18:28)
[2016-09-17] MEDS: Cefepime HCl 2,000 MG in D5% in Water (Mini-Bag+) 100 ML IVPB SCH (11:45)
[2016-09-17] MEDS ORDERED: Aspirin Enteric Coated 325 MG Tablet PO SCH (12:00)
[2016-09-17] MEDS: hydrALAZINE 25 MG TABLET PO SCH ×2 (14:30→20:47)
[2016-09-17 14:46] LABS: Hematocrit 31.3 % (35.3-44.9); Hemoglobin 9.6 g/dL (11.5-15.4)
[2016-09-17 15:00] LABS: Calcium 9.4 mg/dL (8.6-10.8); Potassium 2.9 mEq/L (3.5-4.5)
[2016-09-17] MEDS ORDERED: Magnesium Sulfate 2 GM in D5% in Water 100 ML IV ONE (15:27)
[2016-09-17] MEDS ORDERED: risperiDONE 1 MG TABLET PO SCH (21:00)
[2016-09-17] MEDS ORDERED: Mirtazapine 15 MG TABLET PO SCH (21:00)
[2016-09-18] MEDS: Insulin LISPRO 300 UNITS/3 ML VIAL SQ SCH ×4 (01:16→17:51)
[2016-09-18 03:33] LABS: Basophils % 0.3 %; Eosinophils # 0.5 K/mcL (0.0-0.6); Hematocrit 26.1 % (35.3-44.9); Immature Granulocytes % 0.5 % (0-4); Immature Platelets 2.4 % (1.1-6.1); Lymphocytes # 3.4 K/mcL (0.6-4.6); Lymphocytes % 34.6 %; Mean Corpuscular HGB Conc 30.3 g/dL (31.6-35.5); Mean Corpuscular Hemoglobin 27.9 pg (28.0-33.3); Mean Corpuscular Volume 92.2 fL (83.0-100.0); Monocytes # 0.8 K/mcL (0.0-1.3); Monocytes % 8.4 %; Neutrophils # 5.1 K/mcL (1.6-8.9); Platelet Count 178 K/mcL (140-400); Red Blood Count 2.83 M/mcL (3.82-4.97); Segmented Neutrophils % 51.2 %
[2016-09-18 03:43] LABS: Calcium 8.9 mg/dL (8.6-10.8); Potassium 3.6 mEq/L (3.5-4.5)
[2016-09-18 03:44] LABS: Hemoglobin 7.9 g/dL (11.5-15.4)
[2016-09-18] MEDS: *HR* Heparin 5,000 UNIT/ML VIAL SQ SCH ×2 (05:07→18:12)
[2016-09-18] MEDS: Vancomycin 500 MG in D5% in Water (Mini-Bag+) 100 ML IVPB SCH (08:40)
[2016-09-18] MEDS: Cefepime HCl 2,000 MG in D5% in Water (Mini-Bag+) 100 ML IVPB SCH (11:21)
[2016-09-18] MEDS: 0.9 % Sodium Chloride 1,000 ML IVC SCH (11:26)
[2016-09-18] MEDS: hydrALAZINE 25 MG TABLET PO SCH ×3 (12:40→23:49)
--- NOTE | 2016-09-18 13:25 | Internal Med Progress Note ---
<Guanako Lewis - Last Filed: 09/18/16 13:20> Date of Encounter: 09/18/16 Time of Encounter: 13:20 - Assessment and plan (1) Altered mental status Current Visit: Yes Status: Chronic Assessment and plan: Patient has been less responsive in AM but improves in afternoon Likely due to psychiatric etiology given her history of Schizophrenia Will re-start her Seroquel and Cogentin but hold off on home Remeron and Risperdal Carotid did show 60-79% stenosis of left ICA, which may affect her HTN but likely not related to her AMS Appreciate recommendations from PT/OT Speech therapy conducted formal swallow evaluation and she is on mechanically altered diet Conducted extensive chart review that illustrated she had multiple episodes of AMS similar to this occasion - her current status may reflect her baseline, but there is no family present to confirm Qualifiers: Qualified Code(s): R41.82 - Altered mental status, unspecified (2) Aspiration pneumonia due to gastric secretions Current Visit: Yes Status: Acute Assessment and plan: Continue Cefepime, day 3, for treatment of suspected aspiration pneumonia of left lower lung lobe Blood cultures negative thus far, will DC Vancomycin White count continues to improve today but she has remained afebrile, non- tachycardic Qualifiers: Laterality: left Lung location: lower lobe of lung Qualified Code(s): J69.0 - Pneumonitis due to inhalation of food and vomit (3) Hypertension Current Visit: Yes Status: Chronic Assessment and plan: Patient has had several high readings with SBP > 200 this afternoon Her PO home meds recently restarted and she has PRN Hydralazine as well Qualifiers: Qualified Code(s): I10 - Essential (primary) hypertension (4) Hypokalemia Current Visit: No Status: Acute Assessment and plan: Patient was disimpacted night of 09/16 and had 6 loose episodes of stools, likely causing hypokalemia Potassium improved to 3.6 today after two doses of 40 mEq potassium (5) CKD (chronic kidney disease) Current Visit: Yes Status: Chronic Assessment and plan: Cr stable at 1.82 this morning from 1.87; currently getting IVF at lower dose of 60 ml/hr as she has poor oral intake Avoid nephrotoxins, Monitor BUN and creatinine Qualifiers: Chronic kidney disease stage: stage 4 (severe) Qualified Code(s): N18.4 - Chronic kidney disease, stage 4 (severe) (6) Meningioma Current Visit: Yes Status: Chronic Assessment and plan: 2 cm mass seen on MRI was already known by neurology, who will follow up with her as outpatient (7) DVT prophylaxis Current Visit: Yes Status: Acute Assessment and plan: Heparin 5000 units BID - Subjective Interval history: Patient remains altered this morning and is responsive to sternal rub by opening her eyes. She does speak incoherently. There is no family at bedside. - Constitutional Vitals: Temp Pulse Resp BP Pulse Ox 97.5 F L 66 16 200/90 100 09/18/16 12:32 09/18/16 12:32 09/18/16 12:32 09/18/16 12:32 09/18/16 12:32 General appearance: Present: A&O X 0, disheveled, pleasant. Absent: answers questions appropriately (non-verbal this morning) - Head Head exam: Present: atraumatic, normocephalic - Eye Eye exam: Present: PERRL, conjuntiva pink, sclera anicteric - Neck Neck exam general surgery: Present: supple, trachea midline. Absent: lymphadenopathy - Respiratory Respiratory exam: Present: CTAB. Absent: accessory muscle use, rales, rhonchi, wheezes - Cardiovascular Cardiovascular exam: Present: RRR, +S1, +S2. Absent: diastolic murmur, gallop, rubs, systolic murmur - GI/Abdominal GI/Abdominal exam: Present: normal bowel sounds, soft, no peritoneal signs. Absent: distended, tenderness - Extremities Exam Extremities exam: Present: warm, radial pulses palpable and symetrical. Absent : calf tenderness, cyanotic, pedal edema - Neurological Exam Neurological exam: Present: altered, speech deficit. Absent: oriented X3, pronater drift, facial droop - Skin Skin exam: Present: dry, intact Internal Medicine: Result - Labs CBC & Chem 7: 09/18/16 03:10 09/18/16 03:10 Labs: Short CBC 09/17/16 09/18/16 Range/Units 14:40 03:10 WBC 9.9 (4.3-11.1) K/mcL Hgb 9.6 L 7.9 L D (11.5-15.4) g/dL Hct 31.3 L 26.1 L (35.3-44.9) % Plt Count 178 (140-400) K/mcL Neutrophils # 5.1 (1.6-8.9) K/mcL BMP 09/17/16 09/18/16 14:40 03:10 Sodium 146 H 145 Potassium 2.9 L 3.6 Chloride 114 H 118 H Carbon Dioxide 27 28 BUN 20 19 Creatinine 2.00 H 1.82 H Glucose 192 H 88 Calcium 9.4 8.9 - ABG Interpretation ABG results: ABG ABG pH 7.34 pH Units (7.32-7.45) 09/15/16 21:15 ABG pCO2 59 mmHg (35-45) H 09/15/16 21:15 ABG pO2 89 mmHg (85-104) 09/15/16 21:15 ABG O2 Saturation 96 % (95-98) 09/15/16 21:15 PT/INR, D-dimer PT 11.1 Seconds (9.4-12.1) 09/15/16 19:15 Consult Discharge Plan - Plan Referrals: NO,PCP [Primary Care Provider] - <Jose Diaz - Last Filed: 09/18/16 20:17> Date of Encounter: 09/18/16 - Assessment and plan (1) Acute metabolic encephalopathy Current Visit: No Status: Acute (2) Schizophrenia Current Visit: No Status: Chronic Qualifiers: Schizophrenia type: unspecified Qualified Code(s): F20.9 - Schizophrenia, unspecified (3) Meningioma Current Visit: Yes Status: Chronic (4) Hypokalemia Current Visit: No Status: Acute (5) Hypomagnesemia Current Visit: Yes Status: Acute (6) Constipation by delayed colonic transit Current Visit: Yes Status: Acute (7) CKD (chronic kidney disease) Current Visit: Yes Status: Chronic Qualifiers: Chronic kidney disease stage: stage 4 (severe) Qualified Code(s): N18.4 - Chronic kidney disease, stage 4 (severe) (8) Tobacco abuse Current Visit: No Status: Chronic (9) Anemia Current Visit: Yes Status: Acute Qualifiers: Anemia type: other cause Other causes of anemia: chronic disease, kidney Qualified Code(s): N18.9 - Chronic kidney disease, unspecified; D63.1 - Anemia in chronic kidney disease - Constitutional Vitals: Temp Pulse Resp BP Pulse Ox 97.3 F L 74 16 175/79 96 12/29/16 14:59 09/18/16 14:59 09/18/16 14:59 09/18/16 17:57 09/18/16 14:59 Internal Medicine: Result - Labs CBC & Chem 7: 09/18/16 03:10 09/18/16 03:10 Labs: Short CBC 09/18/16 Range/Units 03:10 WBC 9.9 (4.3-11.1) K/mcL Hgb 7.9 L D (11.5-15.4) g/dL Hct 26.1 L (35.3-44.9) % Plt Count 178 (140-400) K/mcL Neutrophils # 5.1 (1.6-8.9) K/mcL BMP 09/18/16 03:10 Sodium 145 Potassium 3.6 Chloride 118 H Carbon Dioxide 28 BUN 19 Creatinine 1.82 H Glucose 88 Calcium 8.9 - ABG Interpretation ABG results: ABG ABG pH 7.34 pH Units (7.32-7.45) 09/15/16 21:15 ABG pCO2 59 mmHg (35-45) H 09/15/16 21:15 ABG pO2 89 mmHg (85-104) 09/15/16 21:15 ABG O2 Saturation 96 % (95-98) 09/15/16 21:15 PT/INR, D-dimer PT 11.1 Seconds (9.4-12.1) 09/15/16 19:15 - Attending Attestation I examined this patient and my medical decision-making was reviewed with the Resident Physician. I agree with the documented findings, disposition and treatment plan as described except to the extent set forth below. Ms. Hayes is currently admitted for acute change in mental status. She remains moderate to high risk due to potential neurologic compromise. Ms. Hayes is about the same today. She slept till lunch and awoke with minimal speech. She still has some random movements of her head. Hemoglobin is low as well but no overt bleeding. Blood pressure has been up and down today. Exam Alert. Heart reg Lungs clear Abd soft No edema I/P 1. Acute encephalopathy - persists. May need further imaging 2. Anemia - cause not clear. Recheck tomorrow 3. Asp PNA 4. Hypokalemia 5. Hypomagnesema 6. CKD 4 Further diagnoses and plan as above
[2016-09-18] MEDS: Aspirin 325 MG TABLET PO SCH (13:59)
[2016-09-18] MEDS: Spironolactone 25 MG TABLET PO SCH (16:26)
--- NOTE | 2016-09-18 19:22 | Carotid Imaging Report ---
Carotid Duplex Patient Name:Grace Hayes Order Number:[id number] Procedure Date:09/17/2016 Date:1950ge:65 yrs Gender:Female Location:[facility] Room #: 2NE31 [employer] Supervisor:Nadia Mcgowan Referring MD:Guanako Lewis DO copy worker:None Reading MD:Gilmar Michael MD Impressions: The right carotid artery has minimal plaque throughout. The left internal carotid artery has a 60-79% stenosis. Recommendations: Risk factor reduction. Further evaluation recommended if clinically indicated. Follow-up carotid duplex in 6 months. Findings Carotid Duplex: Right: The right proximal common carotid artery has a PSV of 66 cm/s and a EDV of 11 cm/s. The right mid common carotid artery has a PSV of 68 cm/s and a EDV of 16 cm/s. The right distal common carotid artery has a PSV of 68 cm/s and a EDV of 14 cm/s. The right bifurcation has a PSV of 63 cm/s and a EDV of 14 cm/s. The right proximal internal carotid artery has a PSV of 78 cm/s and a EDV of 25 cm/s. There is nonstenotic plaque in the right mid internal carotid artery with a PSV of 101 cm/s and a EDV of 29 cm/s. There is smooth heterogeneous plaque. The right distal internal carotid artery has a PSV of 72 cm/s and a EDV of 20 cm/s. The right eca has a PSV of 90 cm/s and a EDV of 11 cm/s. The right vertebral artery has a PSV of 67 cm/s and a EDV of 20 cm/s. Left: The left proximal common carotid artery has a PSV of 58 cm/s and a EDV of 16 cm/s. The left mid common carotid artery has a PSV of 81 cm/s and a EDV of 19 cm/s. The left distal common carotid artery has a PSV of 65 cm/s and a EDV of 18 cm/s. There is nonstenotic plaque in the left bifurcation with a PSV of 66 cm/s and a EDV of 19 cm/s. There is smooth heterogeneous plaque. There is nonstenotic plaque in the left proximal internal carotid artery with a PSV of 63 cm/s and a EDV of 20 cm/s. There is smooth heterogeneous plaque. There is 60-79% stenosis in the left mid internal carotid artery with a PSV of 236 cm/s and a EDV of 63 cm/s. There is smooth heterogeneous plaque. The left distal internal carotid artery has a PSV of 105 cm/s and a EDV of 31 cm/s. There is nonstenotic plaque in the left eca with a PSV of 73 cm/s and a EDV of 11 cm/s. There is smooth heterogeneous plaque. The left vertebral artery has a PSV of 63 cm/s and a EDV of 10 cm/s. Carotid Results Right PSV EDV Assessment Proximal CCA 66 11 Mid CCA 68 16 Distal CCA 68 14 Bifurcation 63 14 Proximal ICA 78 25 Mid ICA 101 29 Distal ICA 72 20 ECA 90 11 Vertebral Artery 67 20 Left PSV EDV Assessment Proximal CCA 58 16 Mid CCA 81 19 Distal CCA 65 18 Bifurcation 66 19 Proximal ICA 63 20 Mid ICA 236 63 Distal ICA 105 31 ECA 73 11 Vertebral Artery 63 10 Ratio's Right ICA/CCA Ratio: 1.50 ICA/CCA Values: 101/68 Left ICA/CCA Ratio: 3.00 ICA/CCA Values: 236/81 Updated by Gilmar Michael MD on 09/18/2016 7:18:12 PM electronically signed on 09/18/2016 7:18:39 PM with status of Final
[2016-09-19] MEDS: Insulin LISPRO 300 UNITS/3 ML VIAL SQ SCH ×4 (01:27→20:55)
[2016-09-19] MEDS: 0.9 % Sodium Chloride 1,000 ML IVC SCH ×2 (04:46→22:09)
[2016-09-19] MEDS: *HR* Heparin 5,000 UNIT/ML VIAL SQ SCH ×2 (04:47→18:43)
[2016-09-19 04:52] LABS: Basophils % 0.3 %; Eosinophils # 0.5 K/mcL (0.0-0.6); Eosinophils % 5.6 %; Hemoglobin 8.5 g/dL (11.5-15.4); Immature Granulocytes % 0.2 % (0-4); Lymphocytes # 2.3 K/mcL (0.6-4.6); Mean Corpuscular HGB Conc 30.4 g/dL (31.6-35.5); Mean Corpuscular Hemoglobin 27.9 pg (28.0-33.3); Mean Corpuscular Volume 91.8 fL (83.0-100.0); Mean Platelet Volume 10.1 fL (9.4-12.4); Monocytes # 0.8 K/mcL (0.0-1.3); Monocytes % 8.9 %; Neutrophils # 5.2 K/mcL (1.6-8.9); Platelet Count 167 K/mcL (140-400); Red Blood Count 3.05 M/mcL (3.82-4.97); Red Cell Distribution Width 14.3 % (11.5-14.5)
[2016-09-19 05:00] LABS: Calcium 8.9 mg/dL (8.6-10.8); Potassium 3.4 mEq/L (3.5-4.5)
--- NOTE | 2016-09-19 09:57 | Internal Med Progress Note ---
<JoshuaGuanako - Last Filed: 09/19/16 15:21> Date of Encounter: 09/19/16 Time of Encounter: 09:55 - Assessment and plan (1) Altered mental status Current Visit: Yes Status: Acute Assessment and plan: Likely psychiatric in etiology given her history of Schizophrenia and multiple Will re-start her Seroquel and Risperdal, and give one dose of IV Decadron as previous head CT showed possible edema Spoke to psychiatric nurse who informed Dr. Márquez of patient, she will see her on Thursday if still here Carotid did show 60-79% stenosis of left ICA, which may affect her HTN but likely not related to her AMS Appreciate recommendations from PT/OT Speech therapy conducted formal swallow evaluation and she is on mechanically altered diet Qualifiers: Qualified Code(s): R41.82 - Altered mental status, unspecified (2) Aspiration pneumonia due to gastric secretions Current Visit: Yes Status: Acute Assessment and plan: Continue Cefepime, day 4, for treatment of suspected aspiration pneumonia of left lower lung lobe Blood cultures negative thus far, Vancomycin stopped White count continues to improve today but she has remained afebrile, non- tachycardic Qualifiers: Laterality: left Lung location: lower lobe of lung Qualified Code(s): J69.0 - Pneumonitis due to inhalation of food and vomit (3) Hypertension Current Visit: Yes Status: Chronic Assessment and plan: Patient continues to have several high readings with SBP > 200 today Her PO home meds have been restarted and she has PRN Hydralazine as well Aldactone has been added as her Lisinopril is held due to renal insufficiency Will conduct renal artery ultrasound to rule out DANIELLA Qualifiers: Qualified Code(s): I10 - Essential (primary) hypertension (4) CKD (chronic kidney disease) Current Visit: Yes Status: Chronic Assessment and plan: Cr stable at 1.81 this morning from 1.82; currently getting IVF at lower dose of 60 ml/hr as she has poor oral intake Avoid nephrotoxins, Monitor BUN and creatinine Qualifiers: Chronic kidney disease stage: stage 4 (severe) Qualified Code(s): N18.4 - Chronic kidney disease, stage 4 (severe) (5) Meningioma Current Visit: Yes Status: Chronic Assessment and plan: 2 cm mass seen on MRI was already known by neurology, who will follow up with her as outpatient (6) DVT prophylaxis Current Visit: Yes Status: Acute Assessment and plan: Heparin 5000 units BID - Subjective Interval history: Patient remains altered this morning but is awake and eyes opened when entering room. She does not follow commands and does not speak coherently. Family is at bedside and stated she had decline in neurologic function since Thursday, where she has been unable to talk or walk on her own. - Constitutional Vitals: Temp Pulse Resp BP Pulse Ox 98.7 F 71 14 190/90 96 09/19/16 07:29 09/19/16 07:29 09/19/16 07:29 09/19/16 07:29 09/19/16 07:29 General appearance: Present: A&O X 0, disheveled. Absent: answers questions appropriately (non-verbal this morning) - Head Head exam: Present: atraumatic, normocephalic - Eye Eye exam: Present: PERRL, conjuntiva pink, sclera anicteric - Neck Neck exam general surgery: Present: supple, trachea midline. Absent: lymphadenopathy - Respiratory Respiratory exam: Present: CTAB. Absent: accessory muscle use, rales, rhonchi, wheezes - Cardiovascular Cardiovascular exam: Present: RRR, +S1, +S2. Absent: diastolic murmur, gallop, rubs, systolic murmur - GI/Abdominal GI/Abdominal exam: Present: normal bowel sounds, soft, no peritoneal signs. Absent: distended, tenderness - Extremities Exam Extremities exam: Present: warm, radial pulses palpable and symetrical. Absent : calf tenderness, cyanotic, pedal edema - Neurological Exam Neurological exam: Present: altered, speech deficit. Absent: oriented X3, pronater drift, facial droop - Skin Skin exam: Present: dry, intact Internal Medicine: Result - Labs CBC & Chem 7: 09/19/16 04:43 09/19/16 04:43 Labs: Short CBC 09/19/16 Range/Units 04:43 WBC 8.9 (4.3-11.1) K/mcL Hgb 8.5 L (11.5-15.4) g/dL Hct 28.0 L (35.3-44.9) % Plt Count 167 (140-400) K/mcL Neutrophils # 5.2 (1.6-8.9) K/mcL BMP 09/19/16 04:43 Sodium 144 Potassium 3.4 L Chloride 117 H Carbon Dioxide 25 BUN 19 Creatinine 1.81 H Glucose 135 H Calcium 8.9 - ABG Interpretation ABG results: ABG ABG pH 7.34 pH Units (7.32-7.45) 09/15/16 21:15 ABG pCO2 59 mmHg (35-45) H 09/15/16 21:15 ABG pO2 89 mmHg (85-104) 09/15/16 21:15 ABG O2 Saturation 96 % (95-98) 09/15/16 21:15 PT/INR, D-dimer PT 11.1 Seconds (9.4-12.1) 09/15/16 19:15 Consult Discharge Plan - Plan Referrals: NO,PCP [Primary Care Provider] - <Jose Diaz - Last Filed: 09/19/16 18:22> Date of Encounter: 09/19/16 - Assessment and plan (1) Tardive dystonia Current Visit: Yes Status: Acute Assessment and plan: Treated today with benzodiazepine. (2) Acute metabolic encephalopathy Current Visit: No Status: Acute (3) Schizophrenia Current Visit: No Status: Chronic Qualifiers: Schizophrenia type: unspecified Qualified Code(s): F20.9 - Schizophrenia, unspecified (4) Meningioma Current Visit: Yes Status: Chronic (5) Hypokalemia Current Visit: No Status: Acute (6) Hypomagnesemia Current Visit: Yes Status: Acute (7) Constipation by delayed colonic transit Current Visit: Yes Status: Acute (8) CKD (chronic kidney disease) Current Visit: Yes Status: Chronic Qualifiers: Chronic kidney disease stage: stage 4 (severe) Qualified Code(s): N18.4 - Chronic kidney disease, stage 4 (severe) (9) Tobacco abuse Current Visit: No Status: Chronic (10) Anemia Current Visit: Yes Status: Acute Qualifiers: Anemia type: other cause Other causes of anemia: chronic disease, kidney Qualified Code(s): N18.9 - Chronic kidney disease, unspecified; D63.1 - Anemia in chronic kidney disease - Constitutional Vitals: Temp Pulse Resp BP Pulse Ox 97.5 F L 71 16 214/90 97 09/19/16 15:20 09/19/16 15:20 09/19/16 15:20 09/19/16 15:20 09/19/16 15:20 Internal Medicine: Result - Labs CBC & Chem 7: 09/19/16 04:43 09/19/16 04:43 Labs: Short CBC 09/19/16 Range/Units 04:43 WBC 8.9 (4.3-11.1) K/mcL Hgb 8.5 L (11.5-15.4) g/dL Hct 28.0 L (35.3-44.9) % Plt Count 167 (140-400) K/mcL Neutrophils # 5.2 (1.6-8.9) K/mcL BMP 09/19/16 04:43 Sodium 144 Potassium 3.4 L Chloride 117 H Carbon Dioxide 25 BUN 19 Creatinine 1.81 H Glucose 135 H Calcium 8.9 - ABG Interpretation ABG results: ABG ABG pH 7.34 pH Units (7.32-7.45) 09/15/16 21:15 ABG pCO2 59 mmHg (35-45) H 09/15/16 21:15 ABG pO2 89 mmHg (85-104) 09/15/16 21:15 ABG O2 Saturation 96 % (95-98) 09/15/16 21:15 PT/INR, D-dimer PT 11.1 Seconds (9.4-12.1) 09/15/16 19:15 - Attending Attestation I examined this patient and my medical decision-making was reviewed with the Resident Physician. I agree with the documented findings, disposition and treatment plan as described except to the extent set forth below. Ms. Hayes is currently admitted for acute change in mental status. She remains moderate to high risk due to potential neurologic compromise. Ms. Hayes was more alert this AM but having a lot more dystonic movements. Was able to react to bright light in eyes but could not control movements. No overt seizure. Nonverbal this AM Exam Nonverbal Continuous chorea like movements and dystonia of upper body Heart reg Lungs clear Abd soft Current labs reviewed I/P 1. Acute dystonia/ Tardive - Klonopin given. Talisha held She was also given some Depakote for any potential of issues with edema 2. HTN - uncontrolled. Meds adjusted 3. Asp pna 4. Anemia 5. CKD 4 Further diagnoses and plan as above.
[2016-09-19] MEDS: Aspirin 325 MG TABLET PO SCH (11:15)
[2016-09-19] MEDS: hydrALAZINE 25 MG TABLET PO SCH ×3 (11:15→22:08)
[2016-09-19] MEDS: Spironolactone 25 MG TABLET PO SCH (11:16)
[2016-09-19] MEDS: Cefepime HCl 2,000 MG in D5% in Water (Mini-Bag+) 100 ML IVPB SCH (11:16)
[2016-09-19] MEDS ORDERED: clonazePAM 1 MG TABLET PO ONE (12:00)
[2016-09-19] MEDS ORDERED: clonazePAM 1 MG TABLET PO SCH (12:00)
[2016-09-19] MEDS ORDERED: Dexamethasone 4 MG/ML VIAL IVP ONE (14:29)
--- NOTE | 2016-09-19 14:34 | Neurology Progress Note ---
Date of Encounter: 09/19/16 Time of Encounter: 14:31 Assessment and Plan (1) Altered mental status Current Visit: Yes Status: Chronic Acute fluctuating mental status along with significant diffuse acute dyskinetic movements. This appears to be related to a type of EMS in its severe form. She did not respond to cogentin orally. Temporal withdrawal of antipsychotic in this case, risperdol may provoke excessive tardive dyskinesis. other treatment options including judicious use of benzo or muscle relaxant. Do not believe that she has seizures but empirical treatment with keppra 250mg bid may be of use. Psychiatric evaluation may be of help. Please continue medical and supportive care Qualifiers: Qualified Code(s): R41.82 - Altered mental status, unspecified (2) Meningioma Current Visit: Yes Status: Chronic This appears to be stable chronic condition. The MRI of brain is of poor quality and mild mass effect at the frontal lobe may be present but the size of the frontal mass has not changes compared to previous study. Does not feel that fluctuating dystonic movement has any thing to do with the meningioma Subjective Principal diagnosis: mental status changes. acute dystonia Interval history: Patient seen and examined. She developed persistent diffuse dystonic movement involving her face, head, mouth and her upper limbs. Caregiver of 30 years says the movements are new and they are fluctuating in intensity. The patient could not verbalize but do make eye contact when asked. No focal weakness noted. Was not responding to Cogentin. Her risperdol was hold. No fever. No headaches reported Unable to get EEG due to patient not cooperating Objective - Constitutional Vitals: Temp Pulse Resp BP Pulse Ox 99.4 F 73 16 227/94 98 09/19/16 11:07 09/19/16 11:07 09/19/16 11:07 09/19/16 11:07 09/19/16 11:07 - Neurological Exam Sensorimotor examination: Present: other (Unable to assess. ) Motor Examination: Present: grossly full strength in all extremities (Patient moves all extremities.) Sensation intact: Present: other (Uanble to assess due to changes in mental status) Posture: Present: other (Orobuccal dyskinesis, oculygyric movements noted) Reflex and gait examination: other (Gait not assessed) Reflexes: Biceps: 1+, Triceps: 1+, Brachioradialis: 1+, Patella: 1+, Achilles: 1 + Mental Status Examination: Present: awake, alert, does not follow commands, makes eye contact Cranial nerve examination: Present: PERRL, EOMI, visual jaime intact (unable to assess), corneal reflexes brisk symmetrically, sensory to face intact, mastication intact, no facial asymmetry is present, hearing is intact symmetrically, soft palate elevates bilaterally upon phonation, gag reflex intact Results - Laboratory Findings CBC and BMP: 09/19/16 04:43 09/19/16 04:43 Abnormal lab findings: Abnormal lab results RBC 3.05 M/mcL (3.82-4.97) L 09/19/16 04:43 Hgb 8.5 g/dL (11.5-15.4) L 09/19/16 04:43 Hct 28.0 % (35.3-44.9) L 09/19/16 04:43 MCH 27.9 pg (28.0-33.3) L 09/19/16 04:43 MCHC 30.4 g/dL (31.6-35.5) L 09/19/16 04:43 Nucleated RBCs/100 WBC 0.2 /100 WBC (0) H 09/15/16 19:15 ABG pCO2 59 mmHg (35-45) H 09/15/16 21:15 ABG HCO3 31.8 mEQ/L (21-27) H 09/15/16 21:15 ABG Total CO2 33.6 mEq/L (20-26) H 09/15/16 21:15 ABG Base Excess 4.9 mEq/L (-2.0 to 3.0) H 09/15/16 21:15 Potassium 3.4 mEq/L (3.5-4.5) L 09/19/16 04:43 Chloride 117 mEq/L (98-109) H 09/19/16 04:43 Creatinine 1.81 mg/dL (0.57-1.11) H 09/19/16 04:43 Est GFR ( Amer) 34 (> 60) L 09/19/16 04:43 Est GFR (Non-Af Amer) 28 (> 60) L 09/19/16 04:43 Glucose 135 mg/dL (70-99) H 09/19/16 04:43 POC Glucose 176 (58-89) H 09/19/16 11:51 Calculated Osmolality 302 (280-300) H 09/19/16 04:43 Ammonia 15 mcmol/L (18-72) L 09/16/16 01:30 B-Natriuretic Peptide 396 pg/mL (0-100) H 09/15/16 19:15 Serum Total Protein 4.8 g/dL (6.0-8.3) L 09/15/16 19:15 Albumin 1.7 g/dL (3.5-5.0) L 09/15/16 19:15 Albumin/Globulin Ratio 0.5 (1.1-2.2) L 09/15/16 19:15 Lipase 4 Units/L (8-78) L 09/15/16 19:15 Urine Protein >=1000 mg/dL (Neg-Trace) H 09/16/16 05:10 Urine Glucose (UA) 250 mg/dL (Normal) H 09/16/16 05:10 Urine Microscopic WBC 3-5 per hpf (0-3) H 09/16/16 05:10 Consult Discharge Plan - Plan Referrals: NO,PCP [Primary Care Provider] -
[2016-09-19] MEDS ORDERED: levETIRAcetam 250 MG in 0.9 % Sodium Chloride 100 ML IVPB SCH (21:00)
[2016-09-19] MEDS: risperiDONE 1 MG TABLET PO SCH (22:09)
[2016-09-20] MEDS: Insulin LISPRO 300 UNITS/3 ML VIAL SQ SCH ×3 (00:30→21:49)
[2016-09-20 04:07] LABS: Basophils % 0.1 %; Hematocrit 32.2 % (35.3-44.9); Immature Granulocytes % 0.3 % (0-4); Lymphocytes # 1.7 K/mcL (0.6-4.6); Mean Corpuscular HGB Conc 31.1 g/dL (31.6-35.5); Mean Corpuscular Hemoglobin 28.2 pg (28.0-33.3); Monocytes # 0.2 K/mcL (0.0-1.3); Monocytes % 2.3 %; Neutrophils # 6.9 K/mcL (1.6-8.9); Platelet Count 199 K/mcL (140-400); Red Blood Count 3.54 M/mcL (3.82-4.97); Segmented Neutrophils % 78.3 %
[2016-09-20 04:14] LABS: Calcium 8.7 mg/dL (8.6-10.8); Potassium 3.6 mEq/L (3.5-4.5)
[2016-09-20] MEDS: *HR* Heparin 5,000 UNIT/ML VIAL SQ SCH ×2 (05:31→18:22)
--- NOTE | 2016-09-20 08:27 | Internal Med Progress Note ---
Date of Encounter: 09/20/16 Time of Encounter: 08:24 - Assessment and plan (1) Tardive dystonia Current Visit: Yes Status: Acute Assessment and plan: Persists today. Will place on more Klonopin as well as Decadron. Psych to be available on Thursday. (2) Acute metabolic encephalopathy Current Visit: Yes Status: Acute Assessment and plan: Persists. Will continue to manage symptomatically. (3) Hypertension Current Visit: Yes Status: Chronic Assessment and plan: Remains very uncontrolled. Renal arterial duplex ordered. Will continue to adjust meds. Qualifiers: Qualified Code(s): I10 - Essential (primary) hypertension (4) Schizophrenia Current Visit: Yes Status: Chronic Assessment and plan: Continue Risperdal and Seroquel. Qualifiers: Schizophrenia type: undifferentiated schizophrenia Qualified Code(s): F20.3 - Undifferentiated schizophrenia (5) Meningioma Current Visit: Yes Status: Chronic Assessment and plan: 2 cm mass seen on MRI was already known by neurology, who will follow up with her as outpatient Seemed to respond to dose of Decadron yesterday. Will continue scheduled today. (6) Hypokalemia Current Visit: No Status: Resolved Assessment and plan: Improved. Will continue to monitor. (7) Hypomagnesemia Current Visit: Yes Status: Acute Assessment and plan: Monitoring and replacing as needed. (8) Constipation by delayed colonic transit Current Visit: Yes Status: Acute Assessment and plan: Managing symptomatically. PRN meds as needed. (9) Anemia Current Visit: Yes Status: Acute Assessment and plan: H/H higher today most likely related to hypovolemia. Will increase IV fluids and monitor H/H. Qualifiers: Anemia type: other cause Other causes of anemia: chronic disease, kidney Qualified Code(s): N18.9 - Chronic kidney disease, unspecified; D63.1 - Anemia in chronic kidney disease (10) CKD (chronic kidney disease) Current Visit: Yes Status: Chronic Assessment and plan: Creatinine higher today. Will increase IV fluids as clinically appears snuff drier today. Qualifiers: Chronic kidney disease stage: stage 4 (severe) Qualified Code(s): N18.4 - Chronic kidney disease, stage 4 (severe) (11) Tobacco abuse Current Visit: No Status: Chronic - Subjective Interval history: Ms. Hayes is currently admitted with acute encephalopathy which is multifactorial. She remains moderate to high risk due to persistent mental status changes. Her blood pressure remains markedly elevated as well. Ms. Hayes awakens to voice. Nonverbal to me. Moves head around a lot. Still has some choreiform movements. No GI issues. No other acute issues overnight. - Constitutional Vitals: Temp Pulse Resp BP Pulse Ox 98.8 F 74 16 185/74 97 09/20/16 07:12 09/20/16 07:12 09/20/16 07:12 09/20/16 07:12 09/20/16 07:12 General appearance: Present: A&O X 0, disheveled. Absent: answers questions appropriately (non-verbal this morning) Exam: Continues to have choreiform type movements of head. - Head Head exam: Present: normocephalic - Eye Eye exam: Present: conjuntiva pink - ENT ENT exam: Present: mucous membranes dry - Respiratory Respiratory exam: Present: decreased breath sounds, CTAB - Cardiovascular Cardiovascular exam: Present: RRR. Absent: systolic murmur, tachycardia - GI/Abdominal GI/Abdominal exam: Present: soft. Absent: mass, tenderness - Extremities Exam Extremities exam: Present: warm. Absent: pedal edema - Neurological Exam Neurological exam: Present: alert Additional comments: Nonverbal. Does not follow commands. Movements of head and neck noted. - Skin Skin exam: Present: dry, warm. Absent: rash Internal Medicine: Result - Labs CBC & Chem 7: 09/20/16 03:35 09/20/16 03:35 Labs: Short CBC 09/20/16 Range/Units 03:35 WBC 8.9 (4.3-11.1) K/mcL Hgb 10.0 L D (11.5-15.4) g/dL Hct 32.2 L (35.3-44.9) % Plt Count 199 (140-400) K/mcL Neutrophils # 6.9 (1.6-8.9) K/mcL BMP 09/20/16 03:35 Sodium 143 Potassium 3.6 Chloride 114 H Carbon Dioxide 23 BUN 22 H Creatinine 1.97 H Glucose 235 H Calcium 8.7 - ABG Interpretation ABG results: ABG ABG pH 7.34 pH Units (7.32-7.45) 09/15/16 21:15 ABG pCO2 59 mmHg (35-45) H 09/15/16 21:15 ABG pO2 89 mmHg (85-104) 09/15/16 21:15 ABG O2 Saturation 96 % (95-98) 09/15/16 21:15 PT/INR, D-dimer PT 11.1 Seconds (9.4-12.1) 09/15/16 19:15 Consult Discharge Plan - Plan Referrals: NO,PCP [Primary Care Provider] -
[2016-09-20] MEDS: Cefepime HCl 2,000 MG in D5% in Water (Mini-Bag+) 100 ML IVPB SCH (09:45)
[2016-09-20] MEDS: Dexamethasone 4 MG/ML VIAL IVP SCH ×3 (09:46→22:30)
[2016-09-20] MEDS: 0.9 % Sodium Chloride 1,000 ML IVC SCH ×2 (09:46→23:55)
[2016-09-20] MEDS: Aspirin 325 MG TABLET PO SCH (09:47)
[2016-09-20] MEDS: hydrALAZINE 25 MG TABLET PO SCH ×3 (09:47→22:21)
[2016-09-20] MEDS: Spironolactone 25 MG TABLET PO SCH ×2 (09:47→22:14)
[2016-09-20] MEDS: clonazePAM 0.5 MG TABLET PO SCH ×2 (09:48→22:21)
[2016-09-20] MEDS: risperiDONE 1 MG TABLET PO SCH (22:22)
[2016-09-21] MEDS: Insulin LISPRO 300 UNITS/3 ML VIAL SQ SCH ×4 (00:56→18:30)
[2016-09-21] MEDS: Dexamethasone 4 MG/ML VIAL IVP SCH ×4 (03:06→21:35)
[2016-09-21 06:10] LABS: Hematocrit 32.3 % (35.3-44.9); Immature Platelets 3.4 % (1.1-6.1); Mean Corpuscular Hemoglobin 28.1 pg (28.0-33.3); Mean Corpuscular Volume 90.7 fL (83.0-100.0); Mean Platelet Volume 10.8 fL (9.4-12.4); Red Blood Count 3.56 M/mcL (3.82-4.97); Red Cell Distribution Width 14.3 % (11.5-14.5)
[2016-09-21 06:26] LABS: Calcium 8.1 mg/dL (8.6-10.8); Magnesium 1.8 mg/dL (1.6-2.6); Potassium 3.4 mEq/L (3.5-4.5)
[2016-09-21] MEDS: *HR* Heparin 5,000 UNIT/ML VIAL SQ SCH ×2 (06:30→18:28)
[2016-09-21] MEDS: Cefepime HCl 2,000 MG in D5% in Water (Mini-Bag+) 100 ML IVPB SCH (09:43)
[2016-09-21] MEDS: Spironolactone 25 MG TABLET PO SCH ×3 (09:43→22:00)
[2016-09-21] MEDS: clonazePAM 0.5 MG TABLET PO SCH ×3 (09:43→22:00)
[2016-09-21] MEDS: hydrALAZINE 25 MG TABLET PO SCH ×4 (09:43→22:00)
[2016-09-21] MEDS: Aspirin 325 MG TABLET PO SCH (09:43)
[2016-09-21] MEDS: 0.9 % Sodium Chloride 1,000 ML IVC SCH ×2 (09:49→21:37)
--- NOTE | 2016-09-21 18:40 | Internal Med Progress Note ---
Date of Encounter: 09/21/16 Time of Encounter: 08:45 - Assessment and plan (1) Hypovolemia Current Visit: Yes Status: Acute Assessment and plan: Pt not eating much. Continue IV fluids. (2) Tardive dystonia Current Visit: Yes Status: Acute Assessment and plan: Persists. She is on PRN benzo but needs it scheduled. Psych will see tomorrow. (3) Acute metabolic encephalopathy Current Visit: Yes Status: Acute Assessment and plan: Persists. Will continue to manage symptomatically. (4) Hypertension Current Visit: Yes Status: Chronic Assessment and plan: Better controlled over last 24 hours. Will continue current medications. Qualifiers: Hypertension type: essential hypertension Qualified Code(s): I10 - Essential (primary) hypertension (5) Schizophrenia Current Visit: Yes Status: Chronic Assessment and plan: Continue Risperdal and Seroquel. Qualifiers: Schizophrenia type: undifferentiated schizophrenia Qualified Code(s): F20.3 - Undifferentiated schizophrenia (6) Meningioma Current Visit: Yes Status: Chronic Assessment and plan: 2 cm mass seen on MRI was already known by neurology, who will follow up with her as outpatient Seemed to respond to dose of Decadron. Will continue scheduled today. (7) Hypomagnesemia Current Visit: Yes Status: Acute Assessment and plan: Monitoring and replacing as needed. (8) Constipation by delayed colonic transit Current Visit: Yes Status: Acute Assessment and plan: Managing symptomatically. PRN meds as needed. (9) Anemia Current Visit: Yes Status: Acute Assessment and plan: H/H higher today most likely related to hypovolemia. Qualifiers: Anemia type: other cause Other causes of anemia: chronic disease, kidney Qualified Code(s): N18.9 - Chronic kidney disease, unspecified; D63.1 - Anemia in chronic kidney disease (10) CKD (chronic kidney disease) Current Visit: Yes Status: Chronic Assessment and plan: Creatinine higher. On IV fluids. Qualifiers: Chronic kidney disease stage: stage 4 (severe) Qualified Code(s): N18.4 - Chronic kidney disease, stage 4 (severe) (11) Tobacco abuse Current Visit: No Status: Chronic - Subjective Interval history: Ms. Hayes is currently admitted with acute encephalopathy which is multifactorial. She remains moderate to high risk due to persistent mental status changes. Her blood pressure remains markedly elevated as well. Ms. Hayes still is not responding much. She is now on IV Decadron but not much better today. Her BP is better controlled. She still is having dystonia. No fever or chills. - Constitutional Vitals: Temp Pulse Resp BP Pulse Ox 97.6 F 79 20 158/71 97 09/21/16 15:00 09/21/16 15:00 09/21/16 15:00 09/21/16 15:00 09/21/16 15:00 General appearance: Present: A&O X 0, disheveled. Absent: answers questions appropriately (non-verbal this morning) - Head Head exam: Present: normocephalic - Eye Eye exam: Present: conjuntiva pink - ENT ENT exam: Present: mucous membranes dry - Respiratory Respiratory exam: Present: decreased breath sounds, CTAB - Cardiovascular Cardiovascular exam: Present: RRR. Absent: tachycardia - GI/Abdominal GI/Abdominal exam: Present: soft. Absent: mass - Extremities Exam Extremities exam: Present: warm. Absent: pedal edema - Neurological Exam Neurological exam: Present: alert Additional comments: Dystonic movements of head and upper body. Does not follow commands but responds to noxious stimuli. - Skin Skin exam: Present: warm. Absent: rash Internal Medicine: Result - Labs CBC & Chem 7: 09/21/16 05:50 09/21/16 05:50 Labs: Short CBC 09/21/16 Range/Units 05:50 WBC 12.6 H (4.3-11.1) K/mcL Hgb 10.0 L (11.5-15.4) g/dL Hct 32.3 L (35.3-44.9) % Plt Count 217 (140-400) K/mcL BMP 09/21/16 05:50 Sodium 146 H Potassium 3.4 L Chloride 119 H Carbon Dioxide 20 BUN 27 H Creatinine 1.90 H Glucose 170 H Calcium 8.1 L - ABG Interpretation ABG results: ABG ABG pH 7.34 pH Units (7.32-7.45) 09/15/16 21:15 ABG pCO2 59 mmHg (35-45) H 09/15/16 21:15 ABG pO2 89 mmHg (85-104) 09/15/16 21:15 ABG O2 Saturation 96 % (95-98) 09/15/16 21:15 PT/INR, D-dimer PT 11.1 Seconds (9.4-12.1) 09/15/16 19:15 Consult Discharge Plan - Plan Referrals: NO,PCP [Primary Care Provider] -
[2016-09-21] MEDS: risperiDONE 1 MG TABLET PO SCH ×2 (21:36→22:01)
[2016-09-21] MEDS: Thiamine (B-1) 100 MG in D5% in Water 50 ML IVPB SCH (21:37)
[2016-09-22] MEDS: Insulin LISPRO 300 UNITS/3 ML VIAL SQ SCH ×5 (00:05→23:41)
[2016-09-22 05:29] LABS: Hematocrit 29.6 % (35.3-44.9); Mean Corpuscular HGB Conc 30.4 g/dL (31.6-35.5); Mean Corpuscular Volume 91.9 fL (83.0-100.0); Platelet Count 217 K/mcL (140-400); Red Blood Count 3.22 M/mcL (3.82-4.97); Red Cell Distribution Width 14.8 % (11.5-14.5)
[2016-09-22 05:55] LABS: Calcium 7.7 mg/dL (8.6-10.8); Potassium 3.5 mEq/L (3.5-4.5)
[2016-09-22] MEDS: Dexamethasone 4 MG/ML VIAL IVP SCH ×2 (06:25→09:05)
[2016-09-22] MEDS: *HR* Heparin 5,000 UNIT/ML VIAL SQ SCH ×2 (06:25→16:42)
[2016-09-22] MEDS: 0.9 % Sodium Chloride 1,000 ML IVC SCH (06:25)
--- NOTE | 2016-09-22 07:19 | Arterial Study Report ---
Renal Duplex Patient Name:Grace Hayes Order Number:[id number] Procedure Date:09/20/2016 Date:1Age:65 yrs Gender:Female Location:[facility] Room #: 2NE31 Communications Professor:Elijah Alvarez Referring MD:Guanako Lewis DO juvenile corrections officer:None Reading MD:Gilmar Michael MD Primary Indications:Accelerated Hypertension Risk Factors Yes/No Diabetes Yes Hypertension Yes Impressions: The bilateral renal arteries are hemodynamically well maintained. No stenosis detected. Findings Renal Anatomy: The right kidney size measures 10.4 x 4.9 x 5.3 cm. The left kidney size measures 11.4 x 5.1 x 5.2 cm. Prior Study: No prior study available for comparison. Renal Duplex Right RAR:.1 Left RAR:.3 Side Vessel PSV EDV RI PI Accel Aorta 94.00 15.00 0.84 Left Renal Artery Hilum 26.00 6.00 0.77 Left Distal Renal Artery 40.00 6.00 0.85 Left Mid Renal Artery 102.00 10.00 0.90 Left Proximal Renal Artery 86.00 12.00 0.86 Right Renal Artery Hilum 13.00 3.00 0.77 Right Distal Renal Artery 29.00 5.00 0.83 Right Mid Renal Artery 94.00 19.00 0.80 Right Proximal Renal Artery 74.00 12.00 0.84 Updated by Gilmar Michael MD on 09/22/2016 7:13:57 AM electronically signed on 09/22/2016 7:14:14 AM with status of Final
--- NOTE | 2016-09-22 08:31 | Internal Med Progress Note ---
<JoshuaGuanako - Last Filed: 09/22/16 11:55> Date of Encounter: 09/22/16 Time of Encounter: 08:27 - Assessment and plan (1) Altered mental status Current Visit: Yes Status: Acute Assessment and plan: Likely psychiatric in etiology given her history of Schizophrenia on chronic psych medications Psychiatry consulted, recommended stopping Seroquel Appreciate recommendations from PT/OT Speech therapy conducted formal swallow evaluation and she is on mechanically altered diet Qualifiers: Qualified Code(s): R41.82 - Altered mental status, unspecified (2) Aspiration pneumonia due to gastric secretions Current Visit: Yes Status: Acute Assessment and plan: Continue Cefepime, day 6, for treatment of suspected aspiration pneumonia of left lower lung lobe; consider stopping tomorrow Blood cultures negative thus far, Vancomycin stopped White count continues to improve today but she has remained afebrile, non- tachycardic Qualifiers: Laterality: left Lung location: lower lobe of lung Qualified Code(s): J69.0 - Pneumonitis due to inhalation of food and vomit (3) Hypertension Current Visit: Yes Status: Chronic Assessment and plan: Better controlled over last 24 hours Continue with home Hydralazine and Terazosin, added Aldactone and PRN Hydralazine Qualifiers: Hypertension type: essential hypertension Qualified Code(s): I10 - Essential (primary) hypertension (4) CKD (chronic kidney disease) Current Visit: Yes Status: Chronic Assessment and plan: Creatinine slightly increased today, continue with IVF @ 100 ml/hr Qualifiers: Chronic kidney disease stage: stage 4 (severe) Qualified Code(s): N18.4 - Chronic kidney disease, stage 4 (severe) (5) Meningioma Current Visit: Yes Status: Chronic Assessment and plan: 2 cm mass seen on MRI was already known by neurology, who will follow up with her as outpatient (6) DVT prophylaxis Current Visit: Yes Status: Acute Assessment and plan: Heparin 5000 units BID - Subjective Interval history: Patient remains non-verbal not responding to commands. There is no family at bedside. Psychiatry has been notified and will see patient. - Constitutional Vitals: Temp Pulse Resp BP Pulse Ox 97.6 F 80 18 174/93 98 09/22/16 07:00 09/22/16 07:00 09/22/16 07:00 09/22/16 07:00 09/22/16 07:00 General appearance: Present: A&O X 0, disheveled. Absent: answers questions appropriately (non-verbal this morning) - Head Head exam: Present: atraumatic, normocephalic - Eye Eye exam: Present: PERRL, conjuntiva pink, sclera anicteric - Neck Neck exam general surgery: Present: supple, trachea midline. Absent: lymphadenopathy - Respiratory Respiratory exam: Present: decreased breath sounds. Absent: accessory muscle use, rales, rhonchi, wheezes - Cardiovascular Cardiovascular exam: Present: RRR, +S1, +S2. Absent: diastolic murmur, gallop, rubs, systolic murmur - GI/Abdominal GI/Abdominal exam: Present: normal bowel sounds, soft, no peritoneal signs. Absent: distended, tenderness - Extremities Exam Extremities exam: Present: pedal edema (trace), warm, radial pulses palpable and symetrical. Absent: calf tenderness, cyanotic - Neurological Exam Neurological exam: Present: altered, speech deficit. Absent: oriented X3, pronater drift, facial droop - Skin Skin exam: Present: dry, intact Internal Medicine: Result - Labs CBC & Chem 7: 09/22/16 04:27 09/22/16 04:27 Labs: Short CBC 09/22/16 Range/Units 04:27 WBC 15.1 H (4.3-11.1) K/mcL Hgb 9.0 L (11.5-15.4) g/dL Hct 29.6 L (35.3-44.9) % Plt Count 217 (140-400) K/mcL BMP 09/22/16 04:27 Sodium 149 H Potassium 3.5 Chloride 124 H Carbon Dioxide 16 L BUN 30 H Creatinine 2.00 H Glucose 215 H Calcium 7.7 L - ABG Interpretation ABG results: ABG ABG pH 7.34 pH Units (7.32-7.45) 09/15/16 21:15 ABG pCO2 59 mmHg (35-45) H 09/15/16 21:15 ABG pO2 89 mmHg (85-104) 09/15/16 21:15 ABG O2 Saturation 96 % (95-98) 09/15/16 21:15 PT/INR, D-dimer PT 11.1 Seconds (9.4-12.1) 09/15/16 19:15 Consult Discharge Plan - Plan Referrals: NO,PCP [Primary Care Provider] - <Jose Diaz - Last Filed: 09/22/16 17:51> Date of Encounter: 09/22/16 - Assessment and plan (1) Anorexia Current Visit: Yes Status: Acute Assessment and plan: Anticipate she will have a PEG for nutrition. (2) Hypovolemia Current Visit: Yes Status: Acute Assessment and plan: Persists. Will change fluid due to hypernatremia. (3) Hypernatremia Current Visit: Yes Status: Acute (4) Tardive dystonia Current Visit: Yes Status: Acute (5) Acute metabolic encephalopathy Current Visit: Yes Status: Acute (6) Hypertension Current Visit: Yes Status: Chronic Qualifiers: Hypertension type: essential hypertension Qualified Code(s): I10 - Essential (primary) hypertension (7) Schizophrenia Current Visit: Yes Status: Chronic Qualifiers: Schizophrenia type: undifferentiated schizophrenia Qualified Code(s): F20.3 - Undifferentiated schizophrenia (8) Meningioma Current Visit: Yes Status: Chronic (9) Hypomagnesemia Current Visit: Yes Status: Resolved (10) Constipation by delayed colonic transit Current Visit: Yes Status: Acute (11) Anemia Current Visit: Yes Status: Acute Qualifiers: Anemia type: other cause Other causes of anemia: chronic disease, kidney Qualified Code(s): N18.9 - Chronic kidney disease, unspecified; D63.1 - Anemia in chronic kidney disease (12) CKD (chronic kidney disease) Current Visit: Yes Status: Chronic Qualifiers: Chronic kidney disease stage: stage 4 (severe) Qualified Code(s): N18.4 - Chronic kidney disease, stage 4 (severe) (13) Tobacco abuse Current Visit: No Status: Chronic - Constitutional Vitals: Temp Pulse Resp BP Pulse Ox 97.3 F L 74 18 195/91 99 09/22/16 15:00 09/22/16 15:00 09/22/16 15:00 09/22/16 15:00 09/22/16 15:00 Internal Medicine: Result - Labs CBC & Chem 7: 09/22/16 04:27 09/22/16 04:27 Labs: Short CBC 09/22/16 Range/Units 04:27 WBC 15.1 H (4.3-11.1) K/mcL Hgb 9.0 L (11.5-15.4) g/dL Hct 29.6 L (35.3-44.9) % Plt Count 217 (140-400) K/mcL BMP 09/22/16 04:27 Sodium 149 H Potassium 3.5 Chloride 124 H Carbon Dioxide 16 L BUN 30 H Creatinine 2.00 H Glucose 215 H Calcium 7.7 L - ABG Interpretation ABG results: ABG ABG pH 7.34 pH Units (7.32-7.45) 09/15/16 21:15 ABG pCO2 59 mmHg (35-45) H 09/15/16 21:15 ABG pO2 89 mmHg (85-104) 09/15/16 21:15 ABG O2 Saturation 96 % (95-98) 09/15/16 21:15 PT/INR, D-dimer PT 11.1 Seconds (9.4-12.1) 09/15/16 19:15 - Attending Attestation I examined this patient and my medical decision-making was reviewed with the Resident Physician. I agree with the documented findings, disposition and treatment plan as described except to the extent set forth below. Ms. Hayes is currently admitted for acute encephalopathy. She is not eating and has signs of tardive/dystonia. She remains moderate to high risk due to overall medical condition and potential for further decline. Ms. Hayes still has dystonia. She is still nonverbal. Has not been eating ( father says it had started at home). Family agreeable to PEG for nutrition. Exam Alert. Dystonia noted Heart reg Lungs with some rhonchi Some upper ext edema noted BP has been better controlled I/P 1. Met enceph 2. Dystonia 3. Anorexia 4. Malnutrition Further diagnoses and plan as above.
[2016-09-22] MEDS: Thiamine (B-1) 100 MG in D5% in Water 50 ML IVPB SCH (09:06)
[2016-09-22] MEDS: Aspirin 325 MG TABLET PO SCH (09:07)
[2016-09-22] MEDS: hydrALAZINE 25 MG TABLET PO SCH ×3 (09:07→20:02)
[2016-09-22] MEDS: clonazePAM 0.5 MG TABLET PO SCH ×2 (09:07→20:02)
[2016-09-22] MEDS: Cefepime HCl 2,000 MG in D5% in Water (Mini-Bag+) 100 ML IVPB SCH (09:07)
[2016-09-22] MEDS: Spironolactone 25 MG TABLET PO SCH ×2 (09:07→20:02)
--- NOTE | 2016-09-22 12:56 | Consult Note ---
Date of Encounter: 09/22/16 Time of Encounter: 11:00 Assessment & Recommendation (1) Altered mental status Current visit: Yes Status: Acute Assessment & Recommendation: Patient presented to the hospital with altered mental status and appears to have chronic issues with this. It is unclear what her home situation is like but there is some concern that patient may not be able to care for herself at home. Would recommend contacting patient's next of kin if this is her father or who the patient's medical power of communications department head would be. According to a outpatient document from July patient is relatively low functioning andhas not been communicating verbally. Qualifiers: Qualified Code(s): R41.82 - Altered mental status, unspecified (2) Schizophrenia Current visit: Yes Status: Chronic Assessment & Recommendation: Patient does have a history of tardive dyskinesia. Consider restarting the benztropine. Consider decreasing Seroquel to 100 mg by mouth daily at bedtime or discontinuing it altogether. Request records from [facility] to determine what patient's baseline may be from a psychiatric standpoint. Qualifiers: Schizophrenia type: undifferentiated schizophrenia Qualified Code(s): F20.3 - Undifferentiated schizophrenia History of Present Illness Patient: known to practice within the last 3 years Requesting Physician: Jose Diaz DO Reason for consult: AMS/tardive dyskensia History of present illness: Ms. Hayes is a 65 year old female with a history of altered mental status and schizophrenia. She presents to the hospital with altered mental status and confusion is currently being treated for pneumonia. Patient is nonverbal today. She is able to shake her head yes or no but it is unclear if she has a understanding of why she is here or if she is oriented. Unable to get ahold of family for further information about patient's mental status. However, last time she was seen by this practice was in May 2016. At that time she did have some tardive dyskinesia and she was taking Seroquel which was decreased slightly. She appears to be on the same medications that she was the last time she was in the hospital. She does not appear to be responding to internal stimuli. She does not appear agitated. CC: Jose Diaz DO Past Med Surg Social Fam HX - Past Medical History Medical history: cirrhosis, COPD, diabetes, hypertension, renal disease, other - Past Psychiatric History Psychiatric history: Reports: schizophrenia Family psychiatric history: Unknown Family History of Suicide: Unknown - Past Surgical History Surgical History: cholecystectomy - Social History Smoking Status: Never smoker Smokeless Tobacco Status: No Alcohol use: none Drug use: none - Family History Father Living Status: Hx Family Cardiac Disorders: Yes Hx Family Respiratory Disorders: No Hx Family Cancer: No Hx Family Neurologic Disorders: No Mother Living Status: Hx Family Cancer: Yes Medications & Allergies Benztropine [Cogentin] 1 mg PO BID 12/09/15 [History] Carvedilol [Coreg] 25 mg PO BID 12/09/15 [History] Terazosin [Hytrin] 2 mg PO HS 12/09/15 [History] Simvastatin [Zocor] 20 mg PO HS 02/07/16 [History] Calcium Polycarbophil [Fiber-Caps] 625 mg PO QID PRN 05/22/16 [History] Cholecalciferol (Vitamin D3) [Vitamin D3] 50,000 unit PO QWEEK 07/21/16 [History ] Docusate [Colace] 100 mg PO DAILY PRN 07/21/16 [History] Ferrous Sulfate 325 mg PO TID 07/21/16 [History] Mirtazapine [Remeron] 15 mg PO HS 07/21/16 [History] Oxybutynin [Ditropan] 5 mg PO BID 07/21/16 [History] Quetiapine Fumarate [Seroquel] 200 mg PO HS 07/21/16 [History] RisperiDONE [Risperdal] 1 mg PO HS 07/21/16 [History] Hydralazine HCl 100 mg PO TID 7 Days 08/20/16 [Rx] Albuterol Sulfate [Albuterol Inhaler] 2 puff IH Q4HR 09/16/16 [History] Budesonide/Formoterol 160/4.5 [Symbicort 160/4.5] 2 puff IH BID 09/16/16 [ History] Furosemide [Lasix] 20 mg PO DAILY 09/16/16 [History] Insulin DETEMIR [Levemir] 6 unit SQ BID 09/16/16 [History] Ipratropium [Atrovent Inhaler] 2 puff IH QID 09/16/16 [History] Lisinopril [Zestril] 10 mg PO DAILY 09/16/16 [History] Polyethylene Glycol 3350 [MiraLAX] 17 gm PO DAILY 09/16/16 [History] Allergies ciprofloxacin [From Cipro] Adverse Reaction (Verified 12/09/15 21:28) Hives sulfamethoxazole [From Bactrim] Adverse Reaction (Verified 12/09/15 21:28) See Comments trimethoprim [From Bactrim] Adverse Reaction (Verified 12/09/15 21:28) See Comments Review of Systems ROS unobtainable: due to patient condition Mental Status Exam Patient orientation: Yes Person, No Time, No Place Level of alertness: Alert Behavior: calm Eye contact: Minimal Contact Mood description: Other (Patient is nonverbal) Affect description: blunted Speech pattern: Non-verbal Speech volume: No speech Perceptual disturbances: No Reacting to internal stimuli Patient reliability: Not Reliable Historian Intelligence estimate: Below Average Judgment: Poor Insight: None Results - Vital Signs Vital signs: Temp Pulse Resp BP Pulse Ox 97.6 F 76 18 156/97 96 09/22/16 07:00 09/22/16 11:00 09/22/16 11:00 09/22/16 11:00 09/22/16 11:00 - Labs Labs: Laboratory Last Values WBC 15.1 K/mcL (4.3-11.1) H 09/22/16 04:27 RBC 3.22 M/mcL (3.82-4.97) L 09/22/16 04:27 Hgb 9.0 g/dL (11.5-15.4) L 09/22/16 04:27 Hct 29.6 % (35.3-44.9) L 09/22/16 04:27 MCV 91.9 fL (83.0-100.0) 09/22/16 04:27 MCH 28.0 pg (28.0-33.3) 09/22/16 04:27 MCHC 30.4 g/dL (31.6-35.5) L 09/22/16 04:27 RDW 14.8 % (11.5-14.5) H 09/22/16 04:27 Plt Count 217 K/mcL (140-400) 09/22/16 04:27 MPV 11.0 fL (9.4-12.4) 09/22/16 04:27 Immature Gran % 0.3 % (0-4) 09/20/16 03:35 Seg Neutrophils % 78.3 % 09/20/16 03:35 Lymphocytes % 19.0 % 09/20/16 03:35 Monocytes % 2.3 % 09/20/16 03:35 Eosinophils % 0.0 % 09/20/16 03:35 Basophils % 0.1 % 09/20/16 03:35 Neutrophils # 6.9 K/mcL (1.6-8.9) 09/20/16 03:35 Lymphocytes # 1.7 K/mcL (0.6-4.6) 09/20/16 03:35 Monocytes # 0.2 K/mcL (0.0-1.3) 09/20/16 03:35 Eosinophils # 0.0 K/mcL (0.0-0.6) 09/20/16 03:35 Basophils # 0.0 K/mcL (0.0-0.2) 09/20/16 03:35 Nucleated RBCs/100 WBC 0.2 /100 WBC (0) H 09/15/16 19:15 Immature Plt Fraction 3.4 % (1.1-6.1) 09/21/16 05:50 PT 11.1 Seconds (9.4-12.1) 09/15/16 19:15 INR 1.0 09/15/16 19:15 APTT 28.1 Seconds (26.0-36.0) 09/15/16 19:15 ABG pH 7.34 pH Units (7.32-7.45) 09/15/16 21:15 ABG pCO2 59 mmHg (35-45) H 09/15/16 21:15 ABG pO2 89 mmHg (85-104) 09/15/16 21:15 ABG HCO3 31.8 mEQ/L (21-27) H 09/15/16 21:15 ABG Total CO2 33.6 mEq/L (20-26) H 09/15/16 21:15 ABG O2 Saturation 96 % (95-98) 09/15/16 21:15 ABG Base Excess 4.9 mEq/L (-2.0 to 3.0) H 09/15/16 21:15 Blood Gas Modality NC 09/15/16 21:15 Inspired O2 24 % 09/15/16 21:15 Sodium 149 mEq/L (136-145) H 09/22/16 04:27 Potassium 3.5 mEq/L (3.5-4.5) 09/22/16 04:27 Chloride 124 mEq/L (98-109) H 09/22/16 04:27 Carbon Dioxide 16 mEq/L (19-29) L 09/22/16 04:27 BUN 30 mg/dL (7-20) H 09/22/16 04:27 Creatinine 2.00 mg/dL (0.57-1.11) H 09/22/16 04:27 Est GFR ( Amer) 30 (> 60) L 09/22/16 04:27 Est GFR (Non-Af Amer) 25 (> 60) L 09/22/16 04:27 BUN/Creatinine Ratio 15 (6-26) 09/22/16 04:27 Glucose 215 mg/dL (70-99) H 09/22/16 04:27 POC Glucose 174 (58-89) H 09/21/16 23:52 Calculated Osmolality 321 (280-300) H 09/22/16 04:27 Lactic Acid 0.5 mmol/L (0.5-2.2) 09/15/16 19:15 Calcium 7.7 mg/dL (8.6-10.8) L 09/22/16 04:27 Magnesium 1.8 mg/dL (1.6-2.6) 09/21/16 05:50 Total Bilirubin 0.2 mg/dL (0.2-1.2) 09/15/16 19:15 Direct Bilirubin 0.1 mg/dL (0.0-0.5) 09/15/16 19:15 Indirect Bilirubin 0.1 mg/dL (0.0-1.2) 09/15/16 19:15 AST 14 Units/L (5-34) 09/15/16 19:15 ALT 9 Units/L (0-55) 09/15/16 19:15 Alkaline Phosphatase 57 Units/L (38-126) 09/15/16 19:15 Ammonia 12 mcmol/L (18-72) L 09/22/16 04:27 Troponin I 0.03 ng/mL (0-0.03) 09/17/16 05:00 B-Natriuretic Peptide 396 pg/mL (0-100) H 09/15/16 19:15 Serum Total Protein 4.8 g/dL (6.0-8.3) L 09/15/16 19:15 Albumin 1.7 g/dL (3.5-5.0) L 09/15/16 19:15 Globulin 3.1 g/dL (2.4-3.5) 09/15/16 19:15 Albumin/Globulin Ratio 0.5 (1.1-2.2) L 09/15/16 19:15 Lipase 4 Units/L (8-78) L 09/15/16 19:15 TSH 1.056 mcIU/mL (0.350-4.840) 09/15/16 19:15 Urine Color Yellow (Yellow) 09/16/16 05:10 Urine Clarity Clear (Clear) 09/16/16 05:10 Urine pH 6.5 pH Units (5.0-8.0) 09/16/16 05:10 Ur Specific [place] 1.015 (1.010-1.025) 09/16/16 05:10 Urine Protein >=1000 mg/dL (Neg-Trace) H 09/16/16 05:10 Urine Glucose (UA) 250 mg/dL (Normal) H 09/16/16 05:10 Urine Ketones Negative mg/dL (Negative) 09/16/16 05:10 Urine Blood Negative (Negative) 09/16/16 05:10 Urine Nitrite Negative (Negative) 09/16/16 05:10 Urine Bilirubin Negative (Negative) 09/16/16 05:10 Urine Urobilinogen Normal mg/dL (Normal) 09/16/16 05:10 Ur Leukocyte Esterase Negative (Negative) 09/16/16 05:10 Urine Microscopic WBC 3-5 per hpf (0-3) H 09/16/16 05:10 Ur Culture Indicated? NO (NO) 09/16/16 05:10 Stool Occult Blood Negative (Negative) 09/17/16 00:50 Specimen Rejected Clotted 09/16/16 04:50 Consult Discharge Plan - Plan Referrals: NO,PCP [Primary Care Provider] -
[2016-09-22] MEDS: risperiDONE 1 MG TABLET PO SCH (20:02)
[2016-09-23] MEDS: D5% in 0.45% NACL 1,000 ML IVC SCH ×3 (02:05→20:28)
[2016-09-23 03:37] LABS: Basophils % 0.1 %; Eosinophils # 0.1 K/mcL (0.0-0.6); Hemoglobin 8.2 g/dL (11.5-15.4); Immature Granulocytes % 0.3 % (0-4); Lymphocytes # 3.3 K/mcL (0.6-4.6); Lymphocytes % 24.1 %; Mean Corpuscular HGB Conc 30.4 g/dL (31.6-35.5); Mean Corpuscular Hemoglobin 28.1 pg (28.0-33.3); Mean Corpuscular Volume 92.5 fL (83.0-100.0); Mean Platelet Volume 10.7 fL (9.4-12.4); Monocytes # 1.3 K/mcL (0.0-1.3); Monocytes % 9.9 %; Neutrophils # 8.7 K/mcL (1.6-8.9); Platelet Count 180 K/mcL (140-400); Red Blood Count 2.92 M/mcL (3.82-4.97); Red Cell Distribution Width 15.1 % (11.5-14.5); Segmented Neutrophils % 64.6 %
[2016-09-23 03:58] LABS: Calcium 7.3 mg/dL (8.6-10.8); Potassium 2.9 mEq/L (3.5-4.5)
[2016-09-23] MEDS: Insulin LISPRO 300 UNITS/3 ML VIAL SQ SCH ×4 (05:19→23:38)
[2016-09-23] MEDS: *HR* Heparin 5,000 UNIT/ML VIAL SQ SCH ×2 (05:19→17:32)
--- NOTE | 2016-09-23 09:35 | Internal Med Progress Note ---
<Jacob Velasquez - Last Filed: 09/23/16 19:18> Date of Encounter: 09/23/16 Time of Encounter: 09:15 - Assessment and plan (1) Acute metabolic encephalopathy Current Visit: Yes Status: Acute Assessment and plan: - Likely psychiatric in etiology given her history of Schizophrenia on chronic psych medications. - Patient is non-verbal and not following commands. Concern of catatonia. - Will appreciate neurology and psychiatry input. Patient may need inpatient psychiatric care. (2) Aspiration pneumonia due to gastric secretions Current Visit: Yes Status: Acute Assessment and plan: - CXR found left base airspace opacity. Also having leukocytosis on initial presentation raising the concern of pneumonia. - Continue Cefepime (Day 7), for treatment of suspected aspiration pneumonia of left lower lung lobe - No growth on blood cultures. - Patient remained afebrile and non-tachycardic with leukocytosis improves. Qualifiers: Laterality: left Lung location: lower lobe of lung Qualified Code(s): J69.0 - Pneumonitis due to inhalation of food and vomit (3) Anorexia Current Visit: Yes Status: Acute Assessment and plan: - General surgery on board and plans to have PEG tube placement tomorrow. (4) Schizophrenia Current Visit: Yes Status: Chronic Assessment and plan: - History of tardive dyskinesia. - Psychiatric was consulted. - Seroquel has been discontinued and benztropine has been added as psychiatry recommended. - Continue Risperdal and benztropine. - Appreciate psychiatry input. Qualifiers: Schizophrenia type: undifferentiated schizophrenia Qualified Code(s): F20.3 - Undifferentiated schizophrenia (5) Meningioma Current Visit: Yes Status: Chronic Assessment and plan: - Brain MRI showed 2 cm mass. - Per neurology, it's chronic and stable given the size of the frontal mass has not changes compared to previous study. Neurology does not feel that fluctuating dystonic movement noted earlier is from the meningioma. (6) DVT prophylaxis Current Visit: Yes Status: Acute Assessment and plan: - SQ heparin. - Subjective Interval history: Patient was seen and examined this morning. Patient is awake but doesn't talk or answer my questions. She doesn't follow command to grap my fingers. I talked to patient's significant other, stepfather and brother in the afternoon. They state patient started have head shaking 2 weeks ago. Patient's current mental status is definitely worse than on admission. As far as they can recall, patient doesn't have any complaint of headache, neck pain, vision change , hearing change, sensation change. No seizure activities such as tongue biting , jerking or incontinence noted. - Constitutional Vitals: Temp Pulse Resp BP Pulse Ox 98.6 F 64 16 169/86 100 09/23/16 07:46 09/23/16 07:46 09/23/16 07:46 09/23/16 07:46 09/23/16 07:46 General appearance: Present: A&O X 0, disheveled. Absent: answers questions appropriately (non-verbal and not following command this morning.) - Head Head exam: Present: atraumatic, normocephalic - Eye Eye exam: Present: conjuntiva pink, sclera anicteric - Neck Neck exam general surgery: Present: supple, trachea midline. Absent: lymphadenopathy - Respiratory Respiratory exam: Present: decreased breath sounds. Absent: accessory muscle use, rales, rhonchi, wheezes - Cardiovascular Cardiovascular exam: Present: RRR, +S1, +S2. Absent: diastolic murmur, gallop, rubs, systolic murmur - GI/Abdominal GI/Abdominal exam: Present: normal bowel sounds, soft, no peritoneal signs. Absent: distended, tenderness - Extremities Exam Extremities exam: Present: pedal edema (Mild), warm, radial pulses palpable and symetrical. Absent: calf tenderness, cyanotic - Neurological Exam Additional comments: Patient withdraws from pain stimuli. Difficulty to have full neurological exam given patient is non-verbal and not following commands. - Skin Skin exam: Present: dry, intact Internal Medicine: Result - Labs CBC & Chem 7: 09/23/16 03:23 09/23/16 03:23 Labs: Short CBC 09/23/16 Range/Units 03:23 WBC 13.5 H (4.3-11.1) K/mcL Hgb 8.2 L (11.5-15.4) g/dL Hct 27.0 L (35.3-44.9) % Plt Count 180 (140-400) K/mcL Neutrophils # 8.7 (1.6-8.9) K/mcL BMP 09/23/16 03:23 Sodium 147 H Potassium 2.9 L Chloride 124 H Carbon Dioxide 18 L BUN 30 H Creatinine 1.92 H Glucose 187 H Calcium 7.3 L - ABG Interpretation ABG results: ABG ABG pH 7.34 pH Units (7.32-7.45) 09/15/16 21:15 ABG pCO2 59 mmHg (35-45) H 09/15/16 21:15 ABG pO2 89 mmHg (85-104) 09/15/16 21:15 ABG O2 Saturation 96 % (95-98) 09/15/16 21:15 PT/INR, D-dimer PT 11.1 Seconds (9.4-12.1) 09/15/16 19:15 Consult Discharge Plan - Plan Referrals: NO,PCP [Primary Care Provider] - <Zeke West P - Last Filed: 09/24/16 18:48> - Constitutional Vitals: Temp Pulse Resp BP Pulse Ox 98.4 F 57 16 115/50 95 09/23/16 15:25 09/23/16 15:25 09/23/16 15:25 09/23/16 15:25 09/23/16 15:25 Internal Medicine: Result - Labs CBC & Chem 7: 09/24/16 03:25 09/24/16 03:25 Labs: Short CBC 09/23/16 Range/Units 03:23 WBC 13.5 H (4.3-11.1) K/mcL Hgb 8.2 L (11.5-15.4) g/dL Hct 27.0 L (35.3-44.9) % Plt Count 180 (140-400) K/mcL Neutrophils # 8.7 (1.6-8.9) K/mcL BMP 09/23/16 03:23 Sodium 147 H Potassium 2.9 L Chloride 124 H Carbon Dioxide 18 L BUN 30 H Creatinine 1.92 H Glucose 187 H Calcium 7.3 L - ABG Interpretation ABG results: ABG ABG pH 7.34 pH Units (7.32-7.45) 09/15/16 21:15 ABG pCO2 59 mmHg (35-45) H 09/15/16 21:15 ABG pO2 89 mmHg (85-104) 09/15/16 21:15 ABG O2 Saturation 96 % (95-98) 09/15/16 21:15 PT/INR, D-dimer PT 11.1 Seconds (9.4-12.1) 09/15/16 19:15 - Attending Attestation I examined this patient and my medical decision-making was reviewed with the OYSTER CULLER/PA/Advanced Practice Nurse/Resident Physician. I agree with the documented findings, disposition and treatment plan as described except to the extent set forth below.
[2016-09-23] MEDS: Cefepime HCl 2,000 MG in D5% in Water (Mini-Bag+) 100 ML IVPB SCH (11:01)
[2016-09-23] MEDS: Aspirin 325 MG TABLET PO SCH (11:02)
[2016-09-23] MEDS: hydrALAZINE 25 MG TABLET PO SCH ×3 (11:02→23:42)
[2016-09-23] MEDS: Spironolactone 25 MG TABLET PO SCH ×2 (11:02→23:41)
[2016-09-23] MEDS: clonazePAM 0.5 MG TABLET PO SCH ×2 (11:02→23:40)
--- NOTE | 2016-09-23 15:20 | General Surgery Consult Note ---
Date of Encounter: 09/23/16 Time of Encounter: 15:16 Assessment and Plan (1) Dysphagia Current Visit: Yes Status: Acute Will discuss the risks, benefits, alternatives and expected outcomes with the patients step-father re: peg tube placement Tentatively place patient on the schedule for peg tube placement 09/24/[address] Jakub HUTSON after midnight IV fluids Qualifiers: Dysphagia type: unspecified Qualified Code(s): R13.10 - Dysphagia, unspecified (2) Failure to thrive in adult Current Visit: Yes Status: Acute Will discuss the risks, benefits, alternatives and expected outcomes with the patients step-father re: peg tube placement Tentatively place patient on the schedule for peg tube placement 09/24/[address] Jakub HUTSON after midnight IV fluids (3) Altered mental status Current Visit: Yes Status: Acute Qualifiers: Altered mental status type: unspecified Qualified Code(s): R41.82 - Altered mental status, unspecified (4) Schizophrenia Current Visit: Yes Status: Chronic Qualifiers: Schizophrenia type: undifferentiated schizophrenia Qualified Code(s): F20.3 - Undifferentiated schizophrenia History of Present Illness Consult date: 09/22/16 Reason for consult: other (dysphagia, failure to thrive) Requesting physician: Guanako Lewis History of present illness: Ms. Hayes is a 65 year old female with a medical history significant for schizophrenia. She is currently lethargic, non-verbal, and is unable to follow any commands. She has been admitted since 09/15/16 and has progressively declined per the medical records. There is no family at bedside to answer questions and information has been obtained from the medical record. She has been unable to take in oral intake other than a few bites of pudding/applesauce with pills. It is questionable whether she is aspirating or not. She is unable to participate in a barium swallow to evaluate her aspiration risk. We have been asked to see and evaluate the patient for a peg tube placement. Past Med Surg Social Fam HX - Past Medical History Source: old records reviewed Medical history: cirrhosis, COPD, diabetes, hypertension, renal disease, other Psychiatric history: schizophrenia - Past Surgical History Surgical History: cholecystectomy - Social History Smoking Status: Never smoker Smokeless Tobacco Status: No Alcohol use: none Drug use: none Current living situation: With Family (live with her significant other (35 years but not )) - Family History Father Living Status: Hx Family Cardiac Disorders: Yes Hx Family Respiratory Disorders: No Hx Family Cancer: No Hx Family Neurologic Disorders: No Mother Living Status: Hx Family Cancer: Yes Medications and Allergies Benztropine [Cogentin] 1 mg PO BID 12/09/15 [History] Carvedilol [Coreg] 25 mg PO BID 12/09/15 [History] Terazosin [Hytrin] 2 mg PO HS 12/09/15 [History] Simvastatin [Zocor] 20 mg PO HS 02/07/16 [History] Calcium Polycarbophil [Fiber-Caps] 625 mg PO QID PRN 05/22/16 [History] Cholecalciferol (Vitamin D3) [Vitamin D3] 50,000 unit PO QWEEK 07/21/16 [History ] Docusate [Colace] 100 mg PO DAILY PRN 07/21/16 [History] Ferrous Sulfate 325 mg PO TID 07/21/16 [History] Mirtazapine [Remeron] 15 mg PO HS 07/21/16 [History] Oxybutynin [Ditropan] 5 mg PO BID 07/21/16 [History] Quetiapine Fumarate [Seroquel] 200 mg PO HS 07/21/16 [History] RisperiDONE [Risperdal] 1 mg PO HS 07/21/16 [History] Hydralazine HCl 100 mg PO TID 7 Days 08/20/16 [Rx] Albuterol Sulfate [Albuterol Inhaler] 2 puff IH Q4HR 09/16/16 [History] Budesonide/Formoterol 160/4.5 [Symbicort 160/4.5] 2 puff IH BID 09/16/16 [ History] Furosemide [Lasix] 20 mg PO DAILY 09/16/16 [History] Insulin DETEMIR [Levemir] 6 unit SQ BID 09/16/16 [History] Ipratropium [Atrovent Inhaler] 2 puff IH QID 09/16/16 [History] Lisinopril [Zestril] 10 mg PO DAILY 09/16/16 [History] Polyethylene Glycol 3350 [MiraLAX] 17 gm PO DAILY 09/16/16 [History] Allergies ciprofloxacin [From Cipro] Adverse Reaction (Verified 03/20/16 21:28) Hives sulfamethoxazole [From Bactrim] Adverse Reaction (Verified 12/09/15 21:28) See Comments trimethoprim [From Bactrim] Adverse Reaction (Verified 12/09/15 21:28) See Comments Review of Systems ROS unobtainable: due to mental status All systems PM: A 10-system review of systems was performed and is negative for pertinent findings except as documented above in the HPI. General Surgery Exam Initial Vital Signs Temp Pulse Resp BP Pulse Ox 100.7 F H 108 14 192/89 96 09/15/16 17:41 09/15/16 17:41 09/15/16 17:41 09/15/16 17:41 09/15/16 17:41 Exam Initial Vital Signs Temp Pulse Resp BP Pulse Ox 100.7 F H 108 14 192/89 96 09/15/16 17:41 09/15/16 17:41 09/15/16 17:41 09/15/16 17:41 09/15/16 17:41 Results - Labs 09/23/16 03:23 09/23/16 03:23 Abnormal lab results WBC 13.5 K/mcL (4.3-11.1) H 09/23/16 03:23 RBC 2.92 M/mcL (3.82-4.97) L 09/23/16 03:23 Hgb 8.2 g/dL (11.5-15.4) L 09/23/16 03:23 Hct 27.0 % (35.3-44.9) L 09/23/16 03:23 MCHC 30.4 g/dL (31.6-35.5) L 09/23/16 03:23 RDW 15.1 % (11.5-14.5) H 09/23/16 03:23 Nucleated RBCs/100 WBC 0.2 /100 WBC (0) H 09/15/16 19:15 ABG pCO2 59 mmHg (35-45) H 09/15/16 21:15 ABG HCO3 31.8 mEQ/L (21-27) H 09/15/16 21:15 ABG Total CO2 33.6 mEq/L (20-26) H 09/15/16 21:15 ABG Base Excess 4.9 mEq/L (-2.0 to 3.0) H 09/15/16 21:15 Sodium 147 mEq/L (136-145) H 09/23/16 03:23 Potassium 2.9 mEq/L (3.5-4.5) L 09/23/16 03:23 Chloride 124 mEq/L (98-109) H 09/23/16 03:23 Carbon Dioxide 18 mEq/L (19-29) L 09/23/16 03:23 BUN 30 mg/dL (7-20) H 09/23/16 03:23 Creatinine 1.92 mg/dL (0.57-1.11) H 09/23/16 03:23 Est GFR ( Amer) 32 (> 60) L 09/23/16 03:23 Est GFR (Non-Af Amer) 26 (> 60) L 09/23/16 03:23 Glucose 187 mg/dL (70-99) H 09/23/16 03:23 POC Glucose 197 (58-89) H 09/23/16 05:11 Calculated Osmolality 315 (280-300) H 09/23/16 03:23 Calcium 7.3 mg/dL (8.6-10.8) L 09/23/16 03:23 Ammonia 12 mcmol/L (18-72) L 09/22/16 04:27 B-Natriuretic Peptide 396 pg/mL (0-100) H 09/15/16 19:15 Serum Total Protein 4.8 g/dL (6.0-8.3) L 09/15/16 19:15 Albumin 1.7 g/dL (3.5-5.0) L 09/15/16 19:15 Albumin/Globulin Ratio 0.5 (1.1-2.2) L 09/15/16 19:15 Lipase 4 Units/L (8-78) L 09/15/16 19:15 Urine Protein >=1000 mg/dL (Neg-Trace) H 09/16/16 05:10 Urine Glucose (UA) 250 mg/dL (Normal) H 09/16/16 05:10 Urine Microscopic WBC 3-5 per hpf (0-3) H 09/16/16 05:10 Diabetes panel 09/23/16 Range/Units 03:23 Sodium 147 H (136-145) mEq/L Potassium 2.9 L (3.5-4.5) mEq/L Chloride 124 H (98-109) mEq/L Carbon Dioxide 18 L (19-29) mEq/L BUN 30 H (7-20) mg/dL Creatinine 1.92 H (0.57-1.11) mg/dL Glucose 187 H (70-99) mg/dL Calcium 7.3 L (8.6-10.8) mg/dL Calcium panel 09/23/16 Range/Units 03:23 Calcium 7.3 L (8.6-10.8) mg/dL Pituitary panel 09/23/16 Range/Units 03:23 Sodium 147 H (136-145) mEq/L Potassium 2.9 L (3.5-4.5) mEq/L Chloride 124 H (98-109) mEq/L Carbon Dioxide 18 L (19-29) mEq/L BUN 30 H (7-20) mg/dL Creatinine 1.92 H (0.57-1.11) mg/dL Glucose 187 H (70-99) mg/dL Calcium 7.3 L (8.6-10.8) mg/dL Adrenal panel 09/23/16 Range/Units 03:23 Sodium 147 H (136-145) mEq/L Potassium 2.9 L (3.5-4.5) mEq/L Chloride 124 H (98-109) mEq/L Carbon Dioxide 18 L (19-29) mEq/L BUN 30 H (7-20) mg/dL Creatinine 1.92 H (0.57-1.11) mg/dL Glucose 187 H (70-99) mg/dL Calcium 7.3 L (8.6-10.8) mg/dL All other labs normal. - Imaging Additional studies: Chest X-Ray 09/15/16 17:46 IMPRESSION: 1. Left base airspace opacity. If patient has clinical symptoms of infection, finding would be compatible with pneumonia. Recommend follow-up chest radiograph 6-8 weeks post completion of treatment to ensure resolution. If finding persists at that time, CT of the chest would be recommended. D/ / Eder Pena MD / Eder Pena MD Interpreting Provider: Eder Pena MD Brain MRI 09/16/16 05:40 IMPRESSION: 1. Markedly motion degraded study. 2. 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 There is mass effect on the adjacent inferior frontal lobes, worse on the right than the left. Vasogenic edema is noted in the bilateral inferior frontal lobes, moderate on the right and mild on the left. 3. No evidence of acute infarct. The findings were sent to the Radiology Results [facility] at 11:31 a.m. on 09/16/2016to be communicated to a licensed caregiver. D/ / 09/16/2016 11:37:55 Andrés Crowley MD / donnie Interpreting Provider: Andrés Crowley MD Head CT 09/20/16 13:42 IMPRESSION: No new intracranial abnormality. Patient's known extra-axial olfactory groove mass with adjacent vasogenic edema, right greater than left, is not significantly changed from the prior study. Motion limited. D/ / 09/20/2016 15:29:21 Martha Kahn MD / mario Interpreting Provider: Martha Kahn MD Consult Discharge Plan - Plan Referrals: NO,PCP [Primary Care Provider] - - Attending Attestation I examined this patient and my medical decision-making was reviewed with the CLAIM PROFESSIONAL/PA/Advanced Practice Nurse/Resident Physician. I agree with the documented findings, disposition and treatment plan as described except to the extent set forth below.
[2016-09-23] MEDS: Thiamine (B-1) 100 MG in D5% in Water 50 ML IVPB SCH (17:31)
[2016-09-23] MEDS: risperiDONE 1 MG TABLET PO SCH (23:40)
[2016-09-24 03:44] LABS: Basophils % 0.2 %; Eosinophils # 0.4 K/mcL (0.0-0.6); Eosinophils % 3.4 %; Hematocrit 27.5 % (35.3-44.9); Hemoglobin 8.7 g/dL (11.5-15.4); Immature Granulocytes % 0.6 % (0-4); Lymphocytes # 2.3 K/mcL (0.6-4.6); Lymphocytes % 20.4 %; Mean Corpuscular HGB Conc 31.6 g/dL (31.6-35.5); Mean Corpuscular Hemoglobin 28.6 pg (28.0-33.3); Mean Corpuscular Volume 90.5 fL (83.0-100.0); Monocytes % 8.9 %; Neutrophils # 7.6 K/mcL (1.6-8.9); Platelet Count 181 K/mcL (140-400); Red Blood Count 3.04 M/mcL (3.82-4.97); Segmented Neutrophils % 66.5 %
[2016-09-24 03:47] LABS: INR 1.2; Prothrombin Time 13.5 Seconds (9.4-12.1)
[2016-09-24 03:49] LABS: Magnesium 1.3 mg/dL (1.6-2.6); Phosphorous 1.6 mg/dL (2.3-4.7)
[2016-09-24 03:50] LABS: Albumin/Globulin Ratio 0.4 (1.1-2.2); Bilirubin,Direct 0.1 mg/dL (0.0-0.5); Bilirubin,Total 0.1 mg/dL (0.2-1.2); Globulin 2.9 g/dL (2.4-3.5); Total Protein 4.1 g/dL (6.0-8.3)
[2016-09-24 03:51] LABS: Albumin 1.2 g/dL (3.5-5.0)
[2016-09-24] MEDS: D5% in 0.45% NACL 1,000 ML IVC SCH ×2 (04:19→11:01)
[2016-09-24] MEDS: *HR* Heparin 5,000 UNIT/ML VIAL SQ SCH ×2 (04:22→17:42)
[2016-09-24] MEDS: Insulin LISPRO 300 UNITS/3 ML VIAL SQ SCH ×3 (05:54→17:43)
[2016-09-24] MEDS ORDERED: Magnesium Sulfate 2 GM in D5% in Water 100 ML IVPB ONE (06:52)
--- NOTE | 2016-09-24 08:31 | Neurology Progress Note ---
<Faisal Rocha - Last Filed: 09/24/16 14:52> Date of Encounter: 09/24/16 Time of Encounter: 08:28 Assessment and Plan (1) Altered mental status Current Visit: Yes Status: Acute Patient with a known hx of schizophrenia who presented d/t AMS. Patient was reportedly having dyskinetic movements and psychiatry was consulted who recommended benztropine and to decrease Seroquel. History and exam is very limited d/t patient's nonverbal status. Brain MRI: 09/16/16: Markedly motion degraded study. 2cm olfactory gorrve mass may reflct a meningioma. There is mass effect o the adjacent inferior frontal lobes, worse on the right than the left. Vasogenic edema is noted in the bilateral inferior frontal lobes, moderate on the right and mild on the left. No evidence of acute infarct. Her meningioma appears to be chronic and is followed by neurology, however the vasogenic edema is new compared to her prior study in 2013. I reviewed her previous few clinic notes where it appears that she isn't very verbal at her appointments. Significant other and family friend in the room report that 2 weeks ago she fell and she hasn't spoken right since. They report prior to this she was somewhat interactive. In lieu of her new edema, we will give a dose of IV Mannitol 50g and reassess her neurologic status in the morning. Qualifiers: Altered mental status type: unspecified Qualified Code(s): R41.82 - Altered mental status, unspecified Subjective Principal diagnosis: mental status changes. acute dystonia Interval history: Reviewed workup since prior neurology evaluation. Patient currently being treated for possible aspiration pneumonia. She remains non-verbal and does not seem to comprehend what I'm saying. Will not shake her head yes or no. She continues to have ocubuccal dyskinesis. Patient is also being evaluated by surgery for potential PEG tube placement. 14:15 Significant other and family friend at bedside. They report that she has never been non-verbal to them prior to 2 weeks ago when she fell and hit her head. I did review her clinic notes and it doesn't appear that she is verbal when she is in the clinic. Objective - Constitutional Vitals: Temp Pulse Resp BP Pulse Ox 98.7 F 68 16 180/85 99 09/24/16 07:34 09/24/16 07:34 09/24/16 07:34 09/24/16 07:34 09/24/16 07:34 General appearance: Present: A&O X 0, no acute distress - Head Head exam: Present: atraumatic, normal inspection, normocephalic - Eye Eye exam: Present: EOMI, normal appearance. Absent: conjunctival injection Pupils: Present: PERRL - Extremities Exam Extremities exam: Present: normal inspection (moves all extremities) - Neurological Exam Sensorimotor examination: Present: other (Unable to evaluate) Motor Examination: Present: grossly full strength in all extremities (Patient moves all extremities, however unable to fully assess d/t patient's mental status) Sensation intact: Present: other (Uanble to assess due to changes in mental status) Posture: Present: other (Orobuccal dyskinesis) Reflex and gait examination: other (Unable to assess gait) Mental Status Examination: Present: awake, alert, does not follow commands, makes eye contact. Absent: answers questions appropriately, answers questions by nodding yes or no Cranial nerve examination: Present: PERRL, EOMI, no facial asymmetry is present Results - Laboratory Findings CBC and BMP: 09/24/16 03:25 09/24/16 03:25 Abnormal lab findings: Abnormal lab results WBC 11.5 K/mcL (4.3-11.1) H 09/24/16 03:25 RBC 3.04 M/mcL (3.82-4.97) L 09/24/16 03:25 Hgb 8.7 g/dL (11.5-15.4) L 09/24/16 03:25 Hct 27.5 % (35.3-44.9) L 09/24/16 03:25 RDW 15.0 % (11.5-14.5) H 09/24/16 03:25 Nucleated RBCs/100 WBC 0.2 /100 WBC (0) H 09/15/16 19:15 PT 13.5 Seconds (9.4-12.1) H 09/24/16 03:25 ABG pCO2 59 mmHg (35-45) H 09/15/16 21:15 ABG HCO3 31.8 mEQ/L (21-27) H 09/15/16 21:15 ABG Total CO2 33.6 mEq/L (20-26) H 09/15/16 21:15 ABG Base Excess 4.9 mEq/L (-2.0 to 3.0) H 09/15/16 21:15 Potassium 3.0 mEq/L (3.5-4.5) L 09/24/16 03:25 Chloride 120 mEq/L (98-109) H 09/24/16 03:25 Carbon Dioxide 18 mEq/L (19-29) L 09/24/16 03:25 BUN 26 mg/dL (7-20) H 09/24/16 03:25 Creatinine 1.66 mg/dL (0.57-1.11) H 09/24/16 03:25 Est GFR ( Amer) 38 (> 60) L 09/24/16 03:25 Est GFR (Non-Af Amer) 31 (> 60) L 09/24/16 03:25 Glucose 149 mg/dL (70-99) H 09/24/16 03:25 POC Glucose 137 (58-89) H 09/24/16 05:45 Calculated Osmolality 302 (280-300) H 09/24/16 03:25 Calcium 7.0 mg/dL (8.6-10.8) L 09/24/16 03:25 Phosphorus 1.6 mg/dL (2.3-4.7) L 09/24/16 03:25 Magnesium 1.3 mg/dL (1.6-2.6) L 09/24/16 03:25 Total Bilirubin 0.1 mg/dL (0.2-1.2) L 09/24/16 03:25 Ammonia 12 mcmol/L (18-72) L 09/22/16 04:27 B-Natriuretic Peptide 396 pg/mL (0-100) H 09/15/16 19:15 Serum Total Protein 4.1 g/dL (6.0-8.3) L 09/24/16 03:25 Albumin 1.2 g/dL (3.5-5.0) L 09/24/16 03:25 Albumin/Globulin Ratio 0.4 (1.1-2.2) L 09/24/16 03:25 Lipase 4 Units/L (8-78) L 09/15/16 19:15 Urine Protein >=1000 mg/dL (Neg-Trace) H 09/16/16 05:10 Urine Glucose (UA) 250 mg/dL (Normal) H 09/16/16 05:10 Urine Microscopic WBC 3-5 per hpf (0-3) H 09/16/16 05:10 Consult Discharge Plan - Plan Referrals: NO,PCP [Primary Care Provider] - <Guille Martin - Last Filed: 09/24/16 17:22> Time of Encounter: 17:17 Assessment and Plan (1) Meningioma Current Visit: Yes Status: Chronic 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 This seems to be quite a bit more edema present on recent MRI. Perhaps the residual edema could be resulting in increased intercranial pressure , and alteration in her mental status, versus the local effects of the tumor on the frontal lobes resulting in behavioral abnormalities. In regard to see no other obvious infectious and metabolic etiologies to explain this. I would recommend we give her a bolus of mannitol to see whether or not this helps improve her mental status. If it does then I would simply recommend that we maintain her on Decadron. She is felt to be a good surgical candidate then opened recommend having her seen and evaluated by a neurosurgeon. Otherwise I will have her follow up with Dr. Gunter after hospital discharge. Subjective Interval history: Chart was reviewed, patient was seen and examined independently. Case was discussed with Dr. Byrd. I agree with his assessment is listed above. 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 Recent MRI scan of the brain reveals an increase in the vasogenic edema bifrontally. Objective - Constitutional Vitals: Temp Pulse Resp BP Pulse Ox 98.6 F 72 16 197/85 99 09/24/16 15:43 09/24/16 15:43 09/24/16 15:43 09/24/16 15:43 09/24/16 15:43 - Neurological Exam Mental Status Examination: Present: alert (She is minimally verbal, she is not following commands. She does make eye contact however.) Results - Laboratory Findings CBC and BMP: 09/24/16 03:25 09/24/16 03:25 Abnormal lab findings: Abnormal lab results WBC 11.5 K/mcL (4.3-11.1) H 09/24/16 03:25 RBC 3.04 M/mcL (3.82-4.97) L 09/24/16 03:25 Hgb 8.7 g/dL (11.5-15.4) L 09/24/16 03:25 Hct 27.5 % (35.3-44.9) L 09/24/16 03:25 RDW 15.0 % (11.5-14.5) H 09/24/16 03:25 Nucleated RBCs/100 WBC 0.2 /100 WBC (0) H 09/15/16 19:15 PT 13.5 Seconds (9.4-12.1) H 09/24/16 03:25 ABG pCO2 59 mmHg (35-45) H 09/15/16 21:15 ABG HCO3 31.8 mEQ/L (21-27) H 09/15/16 21:15 ABG Total CO2 33.6 mEq/L (20-26) H 09/15/16 21:15 ABG Base Excess 4.9 mEq/L (-2.0 to 3.0) H 09/15/16 21:15 Potassium 3.0 mEq/L (3.5-4.5) L 09/24/16 03:25 Chloride 120 mEq/L (98-109) H 09/24/16 03:25 Carbon Dioxide 18 mEq/L (19-29) L 09/24/16 03:25 BUN 26 mg/dL (7-20) H 09/24/16 03:25 Creatinine 1.66 mg/dL (0.57-1.11) H 09/24/16 03:25 Est GFR ( Amer) 38 (> 60) L 09/24/16 03:25 Est GFR (Non-Af Amer) 31 (> 60) L 09/24/16 03:25 Glucose 149 mg/dL (70-99) H 09/24/16 03:25 POC Glucose 162 (58-89) H 09/24/16 11:45 Calculated Osmolality 302 (280-300) H 09/24/16 03:25 Calcium 7.0 mg/dL (8.6-10.8) L 09/24/16 03:25 Phosphorus 1.6 mg/dL (2.3-4.7) L 09/24/16 03:25 Magnesium 1.3 mg/dL (1.6-2.6) L 09/24/16 03:25 Total Bilirubin 0.1 mg/dL (0.2-1.2) L 09/24/16 03:25 Ammonia 12 mcmol/L (18-72) L 09/22/16 04:27 B-Natriuretic Peptide 396 pg/mL (0-100) H 09/15/16 19:15 Serum Total Protein 4.1 g/dL (6.0-8.3) L 09/24/16 03:25 Albumin 1.2 g/dL (3.5-5.0) L 09/24/16 03:25 Albumin/Globulin Ratio 0.4 (1.1-2.2) L 09/24/16 03:25 Lipase 4 Units/L (8-78) L 09/15/16 19:15 Urine Protein >=1000 mg/dL (Neg-Trace) H 09/16/16 05:10 Urine Glucose (UA) 250 mg/dL (Normal) H 09/16/16 05:10 Urine Microscopic WBC 3-5 per hpf (0-3) H 09/16/16 05:10
--- NOTE | 2016-09-24 09:47 | Anesthesia Evaluation PreOp ---
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 carotid doppler [place] 60-79% stenosis) Other Medical History: Hepatic (cirrhosis), Renal (ckd), Diabetes Type II Anesthesia History: No Prior Anesthetic Complications, Past Anesthesia ( cholecyst) Alcohol Use: none Drug use: none Medications and Allergies Benztropine [Cogentin] 1 mg PO BID 12/09/15 [History] Carvedilol [Coreg] 25 mg PO BID 12/09/15 [History] Terazosin [Hytrin] 2 mg PO HS 12/09/15 [History] Simvastatin [Zocor] 20 mg PO HS 02/07/16 [History] Calcium Polycarbophil [Fiber-Caps] 625 mg PO QID PRN 05/22/16 [History] Cholecalciferol (Vitamin D3) [Vitamin D3] 50,000 unit PO QWEEK 07/21/16 [History ] Docusate [Colace] 100 mg PO DAILY PRN 07/21/16 [History] Ferrous Sulfate 325 mg PO TID 07/21/16 [History] Mirtazapine [Remeron] 15 mg PO HS 07/21/16 [History] Oxybutynin [Ditropan] 5 mg PO BID 07/21/16 [History] Quetiapine Fumarate [Seroquel] 200 mg PO HS 07/21/16 [History] RisperiDONE [Risperdal] 1 mg PO HS 07/21/16 [History] Hydralazine HCl 100 mg PO TID 7 Days 08/20/16 [Rx] Albuterol Sulfate [Albuterol Inhaler] 2 puff IH Q4HR 09/16/16 [History] Budesonide/Formoterol 160/4.5 [Symbicort 160/4.5] 2 puff IH BID 09/16/16 [ History] Furosemide [Lasix] 20 mg PO DAILY 09/16/16 [History] Insulin DETEMIR [Levemir] 6 unit SQ BID 09/16/16 [History] Ipratropium [Atrovent Inhaler] 2 puff IH QID 09/16/16 [History] Lisinopril [Zestril] 10 mg PO DAILY 09/16/16 [History] Polyethylene Glycol 3350 [MiraLAX] 17 gm PO DAILY 09/16/16 [History] Allergies ciprofloxacin [From Cipro] Adverse Reaction (Verified 12/09/15 21:28) Hives sulfamethoxazole [From Bactrim] Adverse Reaction (Verified 12/09/15 21:28) See Comments trimethoprim [From Bactrim] Adverse Reaction (Verified 12/09/15 21:28) See Comments - Meds/Allergy Pre-op Review Medications Reviewed: Yes Allergies Reviewed: Yes Beta Blockers on Current Med List: Yes If Beta Blockers taken, Date/Time (Last Dose taken): coreg 09/23/16 23:40 Anesthesia Results - Labs 09/24/16 03:25 09/24/16 03:25 - Imaging EKG: report reviewed (sr) Anesthesia Exam O2 Sat Weight 58.1 kg O2 Sat by Pulse Oximetry 99 O2 Sat by Pulse Oximetry 97 O2 Sat by Pulse Oximetry 98 O2 Sat by Pulse Oximetry 95 O2 Sat by Pulse Oximetry 98 Vital Signs Temp Pulse Resp BP Pulse Ox 100.7 F H 108 14 192/89 96 09/15/16 17:41 09/15/16 17:41 09/15/16 17:41 09/15/16 17:41 09/15/16 17:41 Vital Signs/O2 Sat/Glucose, Most Current Temp Pulse Resp BP Pulse Ox 09/24/16 07:34 98.7 F 68 16 180/85 99 Blood glucose: 137 (0530) Height: 1.52 Weight: 58 NPO (# of Hours): >8 - HEENT Pupil (Motor): Pupils equal, EOMI Mallampati: II Teeth: Edentulous Oral Opening: Greater than 3 - MICROPHONE OPERATOR LOC: Confused, Disoriented, Uncooperative MICROPHONE OPERATOR Motor: Deficit RUE, Deficit LUE, Deficit RLE, Deficit LLE, Deficit Face MICROPHONE OPERATOR Sensory: Deficit: RUE, LUE, RLE, LLE, Face - Cardiac Rhythm: Regular Murmur: None - Pulmonary Breath Sounds: bilateral Clear Respiratory Effort: Symmetrical Anesthesia Assess/Plan ASA Score: 4 Modified [place] Scale for Level of Consciousness: Anixous, agitated or restless Anesthetic Plan: MAC Monitoring Plan: Standard Monitors Recovery Plan: Other
[2016-09-24] MEDS ORDERED: Potassium Phosphate 44 MEQ in 0.9 % Sodium Chloride 250 ML IVPB ONE (09:52)
--- NOTE | 2016-09-24 09:56 | Internal Med Progress Note ---
<Jacob Velasquez - Last Filed: 09/24/16 17:03> Date of Encounter: 09/24/16 Time of Encounter: 08:45 - Assessment and plan (1) Acute metabolic encephalopathy Current Visit: Yes Status: Acute Assessment and plan: - Likely psychiatric given her history of Schizophrenia on chronic psych medications. But meningoma and electrolyte abnormality may also play some role. - Improved today as patient responses verbally and is able to follow simple commands compared to nonverbal & not following commands yesterday (likely catatonia). - Appreciate neurology and psychiatry input and assistance on patient care. - Supplement for electrolyte abnormality. - Continue to monitor. 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 There is mass effect o the adjacent inferior frontal lobes, worse on the right than the left. Vasogenic edema is noted in the bilateral inferior frontal lobes, moderate on the right and mild on the left. No evidence of acute infarct. - Neurology has concern about this new edema and will give a dose of IV Mannitol 50g and reassess her neurologic status. Appreciate neurology assistance on patient care. (3) Anorexia Current Visit: Yes Status: Acute Assessment and plan: - General surgery on board and will have PEG tube placement later today. - Tightener on board. Appreciate nutrition on patient care. (4) Schizophrenia Current Visit: Yes Status: Chronic Assessment and plan: - History of tardive dyskinesia. - Psychiatric was consulted. - Seroquel has been discontinued and benztropine has been added as psychiatry recommended. - Continue Risperdal and benztropine. - Psychiatry thinks no indication for inpatient psychiatry care at this time. Qualifiers: Schizophrenia type: undifferentiated schizophrenia Qualified Code(s): F20.3 - Undifferentiated schizophrenia (5) Aspiration pneumonia due to gastric secretions Current Visit: Yes Status: Acute Assessment and plan: - CXR found left base airspace opacity. Also having leukocytosis on initial presentation raising the concern of pneumonia. - Continue Cefepime (Day 8), for treatment of suspected aspiration pneumonia of left lower lung lobe - No growth on blood cultures. - Patient remained afebrile and non-tachycardic with leukocytosis continues to improves. Qualifiers: Laterality: left Lung location: lower lobe of lung Qualified Code(s): J69.0 - Pneumonitis due to inhalation of food and vomit (6) Hypokalemia Current Visit: No Status: Acute Assessment and plan: - K 3.0 today despite K supplement yesterday. - Will give potassium phosphate IV x1. - Continue to monitor. (7) Hypophosphatemia Current Visit: Yes Status: Acute Assessment and plan: - Phosphate 1.6 today. - Will give potassium phosphate IV x1. - Continue to monitor. (8) DVT prophylaxis Current Visit: Yes Status: Acute Assessment and plan: - SQ heparin. - Subjective Interval history: No significant event noted overnight. Patient was seen and examined this morning. Patient is more awake and responsive today. Patient did answer with yes or no to few of my questions. - Constitutional Vitals: Temp Pulse Resp BP Pulse Ox 98.7 F 68 16 180/85 99 09/24/16 07:34 09/24/16 07:34 09/24/16 07:34 09/24/16 07:34 09/24/16 07:34 General appearance: Present: A&O X 0, disheveled. Absent: answers questions appropriately (non-verbal and not following command this morning.) - Head Head exam: Present: atraumatic, normocephalic - Eye Eye exam: Present: PERRL, conjuntiva pink, sclera anicteric Pupils: Present: PERRL - Neck Neck exam general surgery: Present: supple, trachea midline. Absent: lymphadenopathy - Respiratory Respiratory exam: Present: CTAB. Absent: accessory muscle use, rales, rhonchi, wheezes - Cardiovascular Cardiovascular exam: Present: RRR, +S1, +S2. Absent: diastolic murmur, gallop, rubs, systolic murmur - GI/Abdominal GI/Abdominal exam: Present: normal bowel sounds, soft, no peritoneal signs. Absent: distended, tenderness - Extremities Exam Extremities exam: Present: warm, radial pulses palpable and symetrical. Absent : calf tenderness, cyanotic, pedal edema - Neurological Exam Additional comments: Patient answered with yes or no to some of my questions. Patient is able to follow simple commands such as opening eyes or squeezing my hands. - Skin Skin exam: Present: dry, intact Internal Medicine: Result - Labs CBC & Chem 7: 09/24/16 03:25 09/24/16 03:25 Labs: Short CBC 09/24/16 Range/Units 03:25 WBC 11.5 H (4.3-11.1) K/mcL Hgb 8.7 L (11.5-15.4) g/dL Hct 27.5 L (35.3-44.9) % Plt Count 181 (140-400) K/mcL Neutrophils # 7.6 (1.6-8.9) K/mcL BMP 09/24/16 03:25 Sodium 142 Potassium 3.0 L Chloride 120 H Carbon Dioxide 18 L BUN 26 H Creatinine 1.66 H Glucose 149 H Calcium 7.0 L Liver Function 09/24/16 Range/Units 03:25 Total Bilirubin 0.1 L (0.2-1.2) mg/dL Direct Bilirubin 0.1 (0.0-0.5) mg/dL AST 17 (5-34) Units/L ALT 16 (0-55) Units/L Alkaline Phosphatase 47 (38-126) Units/L Albumin 1.2 L (3.5-5.0) g/dL - ABG Interpretation ABG results: ABG ABG pH 7.34 pH Units (7.32-7.45) 09/15/16 21:15 ABG pCO2 59 mmHg (35-45) H 09/15/16 21:15 ABG pO2 89 mmHg (85-104) 09/15/16 21:15 ABG O2 Saturation 96 % (95-98) 09/15/16 21:15 PT/INR, D-dimer PT 13.5 Seconds (9.4-12.1) H 09/24/16 03:25 Consult Discharge Plan - Plan Referrals: NO,PCP [Primary Care Provider] - <Zeke West P - Last Filed: 09/24/16 18:48> - Constitutional Vitals: Temp Pulse Resp BP Pulse Ox 98.6 F 72 16 197/85 99 09/24/16 15:43 09/24/16 15:43 09/24/16 15:43 09/24/16 15:43 09/24/16 15:43 Internal Medicine: Result - Labs CBC & Chem 7: 09/24/16 03:25 09/24/16 03:25 Labs: Short CBC 09/24/16 Range/Units 03:25 WBC 11.5 H (4.3-11.1) K/mcL Hgb 8.7 L (11.5-15.4) g/dL Hct 27.5 L (35.3-44.9) % Plt Count 181 (140-400) K/mcL Neutrophils # 7.6 (1.6-8.9) K/mcL BMP 09/24/16 03:25 Sodium 142 Potassium 3.0 L Chloride 120 H Carbon Dioxide 18 L BUN 26 H Creatinine 1.66 H Glucose 149 H Calcium 7.0 L Liver Function 09/24/16 Range/Units 03:25 Total Bilirubin 0.1 L (0.2-1.2) mg/dL Direct Bilirubin 0.1 (0.0-0.5) mg/dL AST 17 (5-34) Units/L ALT 16 (0-55) Units/L Alkaline Phosphatase 47 (38-126) Units/L Albumin 1.2 L (3.5-5.0) g/dL - ABG Interpretation ABG results: ABG ABG pH 7.34 pH Units (7.32-7.45) 09/15/16 21:15 ABG pCO2 59 mmHg (35-45) H 09/15/16 21:15 ABG pO2 89 mmHg (85-104) 09/15/16 21:15 ABG O2 Saturation 96 % (95-98) 09/15/16 21:15 PT/INR, D-dimer PT 13.5 Seconds (9.4-12.1) H 09/24/16 03:25 - Attending Attestation I examined this patient and my medical decision-making was reviewed with the [employer]/PA/Advanced Practice Nurse/Resident Physician. I agree with the documented findings, disposition and treatment plan as described except to the extent set forth below.
[2016-09-24] MEDS ORDERED: 0.9 % Sodium Chloride 1,000 ML IVC SCH (10:00)
[2016-09-24] MEDS ORDERED: *HR* Propofol 200 MG/20 ML VIAL IVP ONE (10:12)
[2016-09-24] MEDS ORDERED: Lidocaine -MPF 2% 2 ML VIAL ONE (10:12)
[2016-09-24] MEDS: Spironolactone 25 MG TABLET PO SCH ×2 (11:02→20:06)
[2016-09-24] MEDS: Aspirin 325 MG TABLET PO SCH (11:02)
[2016-09-24] MEDS: hydrALAZINE 25 MG TABLET PO SCH ×3 (11:03→20:06)
[2016-09-24] MEDS: clonazePAM 0.5 MG TABLET PO SCH ×2 (11:03→20:05)
[2016-09-24] MEDS ORDERED: Mannitol 25% vial 12.5 GM/50 ML VIAL IVP ONE (14:37)
[2016-09-24] MEDS ORDERED: MANNITOL IVC ONE (15:00)
[2016-09-24] MEDS: Cefepime HCl 2,000 MG in D5% in Water (Mini-Bag+) 100 ML IVPB SCH (17:42)
[2016-09-24] MEDS: risperiDONE 1 MG TABLET PO SCH (20:06)
[2016-09-24] MEDS: Thiamine (B-1) 100 MG in D5% in Water 50 ML IVPB SCH (22:54)
[2016-09-25] MEDS: Insulin LISPRO 300 UNITS/3 ML VIAL SQ SCH ×5 (00:20→23:55)
[2016-09-25] MEDS: D5% in 0.45% NACL 1,000 ML IVC SCH (05:12)
[2016-09-25] MEDS: *HR* Heparin 5,000 UNIT/ML VIAL SQ SCH ×3 (05:13→17:09)
[2016-09-25 05:57] LABS: Basophils % 0.2 %; Eosinophils # 0.4 K/mcL (0.0-0.6); Eosinophils % 3.4 %; Hematocrit 30.1 % (35.3-44.9); Hemoglobin 9.1 g/dL (11.5-15.4); Immature Granulocytes % 0.3 % (0-4); Lymphocytes # 2.3 K/mcL (0.6-4.6); Lymphocytes % 20.6 %; Mean Corpuscular HGB Conc 30.2 g/dL (31.6-35.5); Mean Corpuscular Hemoglobin 27.8 pg (28.0-33.3); Monocytes # 0.9 K/mcL (0.0-1.3); Monocytes % 8.1 %; Neutrophils # 7.4 K/mcL (1.6-8.9); Platelet Count 164 K/mcL (140-400); Red Blood Count 3.27 M/mcL (3.82-4.97); Segmented Neutrophils % 67.4 %
[2016-09-25 06:12] LABS: Calcium 6.5 mg/dL (8.6-10.8); Magnesium 1.4 mg/dL (1.6-2.6); Phosphorous 2.4 mg/dL (2.3-4.7); Potassium 3.1 mEq/L (3.5-4.5)
[2016-09-25] MEDS ORDERED: Magnesium Sulfate 2 GM in D5% in Water 100 ML IVPB ONE (06:44)
[2016-09-25] MEDS ORDERED: Calcium Gluconate 2,000 MG in D5% in Water 100 ML IVPB ONE (06:46)
--- NOTE | 2016-09-25 08:24 | Neurology Progress Note ---
<Faisal Rocha - Last Filed: 09/25/16 11:01> Date of Encounter: 09/25/16 Time of Encounter: 08:22 Assessment and Plan (1) Meningioma Current Visit: Yes Status: Chronic Patient received 50g IV Mannitol yesterday d/t concern for vasogenic edema 2/2 her chronic meningioma. patient has responded to the mannitol is is now able to answer some yes/no questions for me, tell me her name and follow simple commands. She also appears to have improvement in her involuntary movements and orobuccal dyskinesis in comparison to yesterday. In lieu of these findings and response to mannitol, will recommend to initiate Decadron 2mg daily, zantac and follow up with her neurologist in 1 week after discharge. Subjective Principal diagnosis: mental status changes. acute dystonia Interval history: Patient awake and alert this AM. Makes eye contact and will answer some questions with yes/no which is an improvement from yesterday. She is able to tell me her name and follow simple commands. Patient has responded to mannitol. Objective - Constitutional Vitals: Temp Pulse Resp BP Pulse Ox 97.4 F L 73 20 173/96 96 09/25/16 06:39 09/25/16 06:39 09/25/16 06:39 09/25/16 06:39 09/25/16 06:39 General appearance: Present: A&O X 0, A&O X 1 (to person), no acute distress - Head Head exam: Present: atraumatic, normal inspection, normocephalic - Eye Eye exam: Present: EOMI, normal appearance. Absent: conjunctival injection - Extremities Exam Extremities exam: Present: normal inspection (moves all extremities) - Neurological Exam Sensorimotor examination: Present: other (Unable to evaluate) Motor Examination: Present: grossly full strength in all extremities (Patient moves all extremities) Sensation intact: Present: other (Uanble to assess due to changes in mental status) Posture: Present: other (Improvement in her orobuccal dyskinesis) Reflex and gait examination: other (Unable to assess gait) Mental Status Examination: Present: alert (She is minimally verbal, however she could tell me her name and follow simple commands today), oriented to person, makes eye contact, follows simple commands Cranial nerve examination: Present: PERRL, EOMI, no facial asymmetry is present Results - Laboratory Findings CBC and BMP: 01/05/17 05:46 09/25/16 05:46 Abnormal lab findings: Abnormal lab results RBC 3.27 M/mcL (3.82-4.97) L 09/25/16 05:46 Hgb 9.1 g/dL (11.5-15.4) L 09/25/16 05:46 Hct 30.1 % (35.3-44.9) L 09/25/16 05:46 MCH 27.8 pg (28.0-33.3) L 09/25/16 05:46 MCHC 30.2 g/dL (31.6-35.5) L 09/25/16 05:46 RDW 15.0 % (11.5-14.5) H 09/25/16 05:46 Nucleated RBCs/100 WBC 0.2 /100 WBC (0) H 09/15/16 19:15 PT 13.5 Seconds (9.4-12.1) H 09/24/16 03:25 ABG pCO2 59 mmHg (35-45) H 09/15/16 21:15 ABG HCO3 31.8 mEQ/L (21-27) H 09/15/16 21:15 ABG Total CO2 33.6 mEq/L (20-26) H 09/15/16 21:15 ABG Base Excess 4.9 mEq/L (-2.0 to 3.0) H 09/15/16 21:15 Potassium 3.1 mEq/L (3.5-4.5) L 09/25/16 05:46 Chloride 118 mEq/L (98-109) H 09/25/16 05:46 Carbon Dioxide 16 mEq/L (19-29) L 09/25/16 05:46 BUN 21 mg/dL (7-20) H 09/25/16 05:46 Creatinine 1.52 mg/dL (0.57-1.11) H 09/25/16 05:46 Est GFR ( Amer) 42 (> 60) L 09/25/16 05:46 Est GFR (Non-Af Amer) 34 (> 60) L 09/25/16 05:46 Glucose 178 mg/dL (70-99) H 09/25/16 05:46 POC Glucose 148 (58-89) H 09/25/16 06:41 Calcium 6.5 mg/dL (8.6-10.8) L 09/25/16 05:46 Magnesium 1.4 mg/dL (1.6-2.6) L 09/25/16 05:46 Total Bilirubin 0.1 mg/dL (0.2-1.2) L 09/24/16 03:25 Ammonia 12 mcmol/L (18-72) L 09/22/16 04:27 B-Natriuretic Peptide 396 pg/mL (0-100) H 09/15/16 19:15 Serum Total Protein 4.1 g/dL (6.0-8.3) L 09/24/16 03:25 Albumin 1.2 g/dL (3.5-5.0) L 09/24/16 03:25 Albumin/Globulin Ratio 0.4 (1.1-2.2) L 09/24/16 03:25 Lipase 4 Units/L (8-78) L 09/15/16 19:15 Urine Protein >=1000 mg/dL (Neg-Trace) H 09/16/16 05:10 Urine Glucose (UA) 250 mg/dL (Normal) H 09/16/16 05:10 Urine Microscopic WBC 3-5 per hpf (0-3) H 09/16/16 05:10 Consult Discharge Plan - Plan Referrals: NO,PCP [Primary Care Provider] - <Guille Martin - Last Filed: 09/25/16 12:59> Time of Encounter: 12:48 Assessment and Plan (1) Meningioma Current Visit: Yes Status: Chronic (2) Altered mental status Current Visit: Yes Status: Acute Patient continues to experience fluctuating changes in mental status. Under the circumstances of which consider medication effect perhaps due to the benzodiazepines and the anticholinergics. Also consider possibility of seizures due to the meningioma. Going to obtain an EEG. Recommend Decadron 2 mg daily. If she continues to experience waxing and waning levels of consciousness; recommend starting an antiepileptic medication empirically. Qualifiers: Altered mental status type: unspecified Qualified Code(s): R41.82 - Altered mental status, unspecified Subjective Interval history: Chart reviewed, patient was seen. Case was discussed with Dr. Rocha. It seems that this morning patient was more alert and responsive. Now she is back to being somnolent, and only responsive to noxious stimuli. She is not following my commands, she is not communicating verbally. I am suspicious of either some metabolic, or medication effect versus seizure. Objective - Constitutional Vitals: Temp Pulse Resp BP Pulse Ox 97.9 F 73 18 152/69 95 09/25/16 11:33 09/25/16 11:33 09/25/16 11:33 09/25/16 11:33 09/25/16 11:33 - Neurological Exam Sensorimotor examination: Present: other Motor Examination: Present: grossly full strength in all extremities (Patient moves all extremities however she does have bilateral foot drops.) Reflex and gait examination: other (Reflexes are diminished throughout.) Mental Status Examination: Present: oriented to person (Patient opens her eyes to noxious stimulation, she also has BUT does not speak or verbalized today.), does not follow commands, drowsy, lethargic, follows simple commands Results - Laboratory Findings CBC and BMP: 09/25/16 05:46 09/25/16 05:46 Abnormal lab findings: Abnormal lab results RBC 3.27 M/mcL (3.82-4.97) L 09/25/16 05:46 Hgb 9.1 g/dL (11.5-15.4) L 09/25/16 05:46 Hct 30.1 % (35.3-44.9) L 09/25/16 05:46 MCH 27.8 pg (28.0-33.3) L 09/25/16 05:46 MCHC 30.2 g/dL (31.6-35.5) L 09/25/16 05:46 RDW 15.0 % (11.5-14.5) H 09/25/16 05:46 Nucleated RBCs/100 WBC 0.2 /100 WBC (0) H 09/15/16 19:15 PT 13.5 Seconds (9.4-12.1) H 09/24/16 03:25 ABG pCO2 59 mmHg (35-45) H 09/15/16 21:15 ABG HCO3 31.8 mEQ/L (21-27) H 09/15/16 21:15 ABG Total CO2 33.6 mEq/L (20-26) H 09/15/16 21:15 ABG Base Excess 4.9 mEq/L (-2.0 to 3.0) H 09/15/16 21:15 Potassium 3.1 mEq/L (3.5-4.5) L 09/25/16 05:46 Chloride 118 mEq/L (98-109) H 09/25/16 05:46 Carbon Dioxide 16 mEq/L (19-29) L 09/25/16 05:46 BUN 21 mg/dL (7-20) H 09/25/16 05:46 Creatinine 1.52 mg/dL (0.57-1.11) H 09/25/16 05:46 Est GFR ( Amer) 42 (> 60) L 09/25/16 05:46 Est GFR (Non-Af Amer) 34 (> 60) L 09/25/16 05:46 Glucose 178 mg/dL (70-99) H 09/25/16 05:46 POC Glucose 97 (58-89) H 09/25/16 11:36 Calcium 6.5 mg/dL (8.6-10.8) L 09/25/16 05:46 Magnesium 1.4 mg/dL (1.6-2.6) L 09/25/16 05:46 Total Bilirubin 0.1 mg/dL (0.2-1.2) L 09/24/16 03:25 Ammonia 12 mcmol/L (18-72) L 09/22/16 04:27 B-Natriuretic Peptide 396 pg/mL (0-100) H 09/15/16 19:15 Serum Total Protein 4.1 g/dL (6.0-8.3) L 09/24/16 03:25 Albumin 1.2 g/dL (3.5-5.0) L 09/24/16 03:25 Albumin/Globulin Ratio 0.4 (1.1-2.2) L 09/24/16 03:25 Lipase 4 Units/L (8-78) L 09/15/16 19:15 Urine Protein >=1000 mg/dL (Neg-Trace) H 09/16/16 05:10 Urine Glucose (UA) 250 mg/dL (Normal) H 09/16/16 05:10 Urine Microscopic WBC 3-5 per hpf (0-3) H 09/16/16 05:10
[2016-09-25] MEDS: Aspirin 325 MG TABLET PO SCH (09:09)
[2016-09-25] MEDS: Spironolactone 25 MG TABLET PO SCH (09:09)
[2016-09-25] MEDS: hydrALAZINE 25 MG TABLET PO SCH ×2 (09:09→16:06)
[2016-09-25] MEDS: clonazePAM 0.5 MG TABLET PO SCH (09:09)
[2016-09-25] MEDS ORDERED: Thiamine (B-1) 100 MG TABLET PO SCH (10:00)
[2016-09-25] MEDS ORDERED: Potassium Chloride Elixir 20 MEQ/15 ML UDC PO ONE (11:39)
--- NOTE | 2016-09-25 15:21 | General Surgery Progress Note ---
Date of Encounter: 09/25/16 Time of Encounter: 15:19 - Assessment and Plan (1) Dysphagia Current Visit: Yes Status: Acute POD #1 placement of PEG tube consult to nutrition has been placed start tube feeds Surgery will sign off at this time, thank you for involving us in this patient s care, please feel free to contact us with any questions. Qualifiers: Dysphagia type: unspecified Qualified Code(s): R13.10 - Dysphagia, unspecified (2) Failure to thrive in adult Current Visit: Yes Status: Acute (3) Altered mental status Current Visit: Yes Status: Acute Qualifiers: Altered mental status type: unspecified Qualified Code(s): R41.82 - Altered mental status, unspecified (4) Schizophrenia Current Visit: Yes Status: Chronic Qualifiers: Schizophrenia type: undifferentiated schizophrenia Qualified Code(s): F20.3 - Undifferentiated schizophrenia Subjective Patient reports: no new complaints, afebrile Objective Vital Signs - Last 8 Hours Temp Pulse Resp BP Pulse Ox 09/25/16 11:33 97.9 F 73 18 152/69 95 09/25/16 09:00 95 Intake and Output 09/24/16 09/25/16 09/25/16 23:59 07:59 15:59 Intake Total 1120 / 1120 100 / 100 300 / 300 Output Total 750 / 750 750 / 750 900 / 900 Balance 370 / 370 -650 / -650 -600 / -600 Intake: IV Fluids 1000 / 1000 100 / 100 200 / 200 D5% And 0.45% Nacl 1000 1000 / 1000 Ml Bag 1,000 ML @ 125 mls /hr IVC .Q8H JANEY Rx#: [id number] Potassium Chloride 10 mEq 100 / 100 200 / 200 /100mL 10 meq In 100 ml @ 100 mls/hr IVPB Q1H JANEY Rx#:[id number] Oral 120 / 120 0 / 0 100 / 100 Output: Urine 750 / 750 Catheter 750 / 750 900 / 900 Other: Meal Breakfast Percent of Meal Consumed 15% Weight 60.6 kg Blood Glucose* 162 148 97 Patient Weight 09/25/16 23:59 Weight 60.6 kg - General physical appearance well developed, well nourished, no distress - Eyes normal ocular movement - ENT dry mucosa, atraumatic, normocephalic - Neck Neck exam: trachea midline - Respiratory normal respiratory effort, clear to auscultation - Cardiovascular Cardiovascular exam: Present: RRR - Abdomen Abdomen: Present: bowel sounds present, soft, non tender - Integumentary no rash - Neurologic CN 2-12 grossly intact - Additional Exam PEG tube in place - Labs 09/25/16 05:46 09/25/16 05:46 Diabetes panel 09/25/16 Range/Units 05:46 Sodium 139 (136-145) mEq/L Potassium 3.1 L (3.5-4.5) mEq/L Chloride 118 H (98-109) mEq/L Carbon Dioxide 16 L (19-29) mEq/L BUN 21 H (7-20) mg/dL Creatinine 1.52 H (0.57-1.11) mg/dL Glucose 178 H (70-99) mg/dL Calcium 6.5 L (8.6-10.8) mg/dL Calcium panel 09/25/16 Range/Units 05:46 Calcium 6.5 L (8.6-10.8) mg/dL Phosphorus 2.4 (2.3-4.7) mg/dL Pituitary panel 09/25/16 Range/Units 05:46 Sodium 139 (136-145) mEq/L Potassium 3.1 L (3.5-4.5) mEq/L Chloride 118 H (98-109) mEq/L Carbon Dioxide 16 L (19-29) mEq/L BUN 21 H (7-20) mg/dL Creatinine 1.52 H (0.57-1.11) mg/dL Glucose 178 H (70-99) mg/dL Calcium 6.5 L (8.6-10.8) mg/dL Adrenal panel 09/25/16 Range/Units 05:46 Sodium 139 (136-145) mEq/L Potassium 3.1 L (3.5-4.5) mEq/L Chloride 118 H (98-109) mEq/L Carbon Dioxide 16 L (19-29) mEq/L BUN 21 H (7-20) mg/dL Creatinine 1.52 H (0.57-1.11) mg/dL Glucose 178 H (70-99) mg/dL Calcium 6.5 L (8.6-10.8) mg/dL Consult Discharge Plan - Plan Referrals: NO,PCP [Primary Care Provider] -
--- NOTE | 2016-09-25 15:39 | EEG/EMG/Oth Biometrics Report ---
EEG Procedure Report Date of procedure: 09/25/16 EEG Procedure: Routine EEG Procedure Note: This is a report of a 21 channel bipolar and referential montage EEG. No posterior dominant alpha rhythm identified in the recording. Study begins with excessive myogenic artifact in all leads bilaterally. As the subject comes down and stops moving as much, but frequencies preserved in all leads bilaterally. The patient then drifts off into stage I and stage II sleep is worsened by dropout of posterior dominant rhythm and emergence of sleep spindles. When the patient awakens again he starts excessive myogenic artifact again prevails. Hyperventilation is not performed in recording. Photic stimulation is performed and does not produce a driving response. The EKG reveals normal sinus rhythm at 66 beats per minute. Impressions: This EEG recording reflects myogenic artifact and movement artifact during wakefulness which attenuates when she falls asleep. This pattern is generally reflective of underlying dementia or psychiatric comorbidities. There is no evidence of epileptiform activity identified during the study. Please correlate clinically.
--- NOTE | 2016-09-25 16:04 | Internal Med Progress Note ---
<Jacob Velasquez - Last Filed: 09/25/16 16:16> Date of Encounter: 09/25/16 Time of Encounter: 08:30 - Assessment and plan (1) Acute metabolic encephalopathy Current Visit: Yes Status: Acute Assessment and plan: - Likely psychiatric given her history of Schizophrenia on chronic psych medications. But meningoma and electrolyte abnormality may also play some role. - Fluctuating mental status as patient was more alert this morning but worse this afternoon. - Appreciate neurology and psychiatry input and assistance on patient care. - Supplement for electrolyte abnormality. - Continue to monitor. - PT/OT recommends SNF placement. Dr. West and I had lengthy discussion with patient's significant other and step father. They verbalized their understanding about her current condition and agreed to have SNF/rehab placement for patient after discharge. Appreciate social service assistance regarding placement. 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 There is mass effect o the adjacent inferior frontal lobes, worse on the right than the left. Vasogenic edema is noted in the bilateral inferior frontal lobes, moderate on the right and mild on the left. No evidence of acute infarct. - Neurology on board and recommends Decadron 2 mg daily. Appreciate neurology assistance on patient care. (3) Anorexia Current Visit: Yes Status: Acute Assessment and plan: - Status post PEG tube placement 09/24/15 - [employer] Functional Analyst on board. Appreciate nutrition recommends on patient care especially regarding tube feeding. (4) Schizophrenia Current Visit: Yes Status: Chronic Assessment and plan: - History of tardive dyskinesia. - Psychiatric was consulted. - Seroquel has been discontinued and benztropine has been added as psychiatry recommended. - Continue Risperdal and benztropine. - Psychiatry thinks no indication for inpatient psychiatry care at this time. Qualifiers: Schizophrenia type: undifferentiated schizophrenia Qualified Code(s): F20.3 - Undifferentiated schizophrenia (5) Aspiration pneumonia due to gastric secretions Current Visit: Yes Status: Acute Assessment and plan: - CXR found left base airspace opacity. Also having leukocytosis on initial presentation raising the concern of pneumonia. - No growth on blood cultures. - Patient had finished 9-days of cefempime. Will discontinue antibiotic today as patient has been afebrile, non-tachycardic and leukocytosis normalized. Qualifiers: Laterality: left Lung location: lower lobe of lung Qualified Code(s): J69.0 - Pneumonitis due to inhalation of food and vomit (6) Hypokalemia Current Visit: No Status: Acute Assessment and plan: - K 3.1 today despite K supplement yesterday. - Will give K supplement (40 meq IV & 40 meq PO liquid) - Continue to monitor. (7) Hypocalcemia Current Visit: Yes Status: Acute Assessment and plan: - Ca 6.5 today. - Ca supplement with Ca gluconate IV. - Continue to monitor. (8) Hypomagnesemia Current Visit: Yes Status: Resolved Assessment and plan: - Mg 1.4 today. - Continue Mg supplement. - Continue to monitor. (9) Hypophosphatemia Current Visit: Yes Status: Acute Assessment and plan: - Resolved as Phosphate 2.4 today. - Continue to monitor. (10) DVT prophylaxis Current Visit: Yes Status: Acute Assessment and plan: - SQ heparin. - Subjective Interval history: No significant event noted overnight. Patient was seen and examined this morning. Patient was more awake and responsive this morning as she could answer questions with more than one word and commanding commands. - Constitutional Vitals: Temp Pulse Resp BP Pulse Ox 97.9 F 73 18 152/69 95 09/25/16 11:33 09/25/16 11:33 09/25/16 11:33 09/25/16 11:33 09/25/16 11:33 General appearance: Present: A&O X 0, disheveled, no acute distress - Head Head exam: Present: atraumatic, normocephalic - Eye Eye exam: Present: conjuntiva pink, sclera anicteric - Neck Neck exam general surgery: Present: supple, trachea midline - Respiratory Respiratory exam: Present: decreased breath sounds. Absent: accessory muscle use, rales, rhonchi, wheezes - Cardiovascular Cardiovascular exam: Present: RRR, +S1, +S2. Absent: diastolic murmur, gallop, rubs, systolic murmur - GI/Abdominal GI/Abdominal exam: Present: normal bowel sounds, soft, no peritoneal signs. Absent: distended, tenderness Additional comments: PEG tube in place. - Extremities Exam Extremities exam: Present: pedal edema (Mild), warm, radial pulses palpable and symetrical. Absent: calf tenderness, cyanotic - Neurological Exam Additional comments: Patient was able to answer with more than one words to some of my questions this morning. Patient is able to follow simple commands such as opening eyes or squeezing my hands at that time. - Skin Skin exam: Present: dry, intact Internal Medicine: Result - Labs CBC & Chem 7: 09/25/16 05:46 09/25/16 05:46 Labs: Short CBC 09/25/16 Range/Units 05:46 WBC 11.0 (4.3-11.1) K/mcL Hgb 9.1 L (11.5-15.4) g/dL Hct 30.1 L (35.3-44.9) % Plt Count 164 (140-400) K/mcL Neutrophils # 7.4 (1.6-8.9) K/mcL BMP 09/25/16 05:46 Sodium 139 Potassium 3.1 L Chloride 118 H Carbon Dioxide 16 L BUN 21 H Creatinine 1.52 H Glucose 178 H Calcium 6.5 L - ABG Interpretation ABG results: ABG ABG pH 7.34 pH Units (7.32-7.45) 09/15/16 21:15 ABG pCO2 59 mmHg (35-45) H 09/15/16 21:15 ABG pO2 89 mmHg (85-104) 09/15/16 21:15 ABG O2 Saturation 96 % (95-98) 09/15/16 21:15 PT/INR, D-dimer PT 13.5 Seconds (9.4-12.1) H 09/24/16 03:25 Consult Discharge Plan - Plan Referrals: NO,PCP [Primary Care Provider] - <Zeke West P - Last Filed: 09/25/16 18:14> - Constitutional Vitals: Temp Pulse Resp BP Pulse Ox 97.6 F 75 18 159/90 98 09/25/16 16:21 09/25/16 16:21 09/25/16 16:21 09/25/16 16:21 09/25/16 16:21 Internal Medicine: Result - Labs CBC & Chem 7: 09/25/16 05:46 09/25/16 05:46 Labs: Short CBC 09/25/16 Range/Units 05:46 WBC 11.0 (4.3-11.1) K/mcL Hgb 9.1 L (11.5-15.4) g/dL Hct 30.1 L (35.3-44.9) % Plt Count 164 (140-400) K/mcL Neutrophils # 7.4 (1.6-8.9) K/mcL BMP 09/25/16 05:46 Sodium 139 Potassium 3.1 L Chloride 118 H Carbon Dioxide 16 L BUN 21 H Creatinine 1.52 H Glucose 178 H Calcium 6.5 L - ABG Interpretation ABG results: ABG ABG pH 7.34 pH Units (7.32-7.45) 09/15/16 21:15 ABG pCO2 59 mmHg (35-45) H 09/15/16 21:15 ABG pO2 89 mmHg (85-104) 09/15/16 21:15 ABG O2 Saturation 96 % (95-98) 09/15/16 21:15 PT/INR, D-dimer PT 13.5 Seconds (9.4-12.1) H 09/24/16 03:25 - Attending Attestation I examined this patient and my medical decision-making was reviewed with the TOWEL HEMMER/PA/Advanced Practice Nurse/Resident Physician. I agree with the documented findings, disposition and treatment plan as described except to the extent set forth below.
[2016-09-25] MEDS: risperiDONE 1 MG TABLET PO SCH (20:09)
[2016-09-25] MEDS: clonazePAM 0.5 MG TABLET GTUBE SCH (20:09)
[2016-09-25] MEDS: hydrALAZINE 25 MG TABLET GTUBE SCH (20:10)
[2016-09-25] MEDS: Spironolactone 25 MG TABLET GTUBE SCH (20:10)
[2016-09-26] MEDS: *HR* Heparin 5,000 UNIT/ML VIAL SQ SCH ×2 (05:23→17:30)
[2016-09-26] MEDS: Insulin LISPRO 300 UNITS/3 ML VIAL SQ SCH ×3 (05:51→17:33)
[2016-09-26 06:22] LABS: Basophils % 0.1 %; Eosinophils % 0.4 %; Hemoglobin 9.7 g/dL (11.5-15.4); Immature Granulocytes % 0.5 % (0-4); Ionized Calcium 1.07 mmol/L (1.15-1.35); Lymphocytes # 1.2 K/mcL (0.6-4.6); Lymphocytes % 11.7 %; Mean Corpuscular HGB Conc 31.3 g/dL (31.6-35.5); Mean Corpuscular Hemoglobin 28.3 pg (28.0-33.3); Mean Corpuscular Volume 90.4 fL (83.0-100.0); Mean Platelet Volume 11.6 fL (9.4-12.4); Monocytes # 0.4 K/mcL (0.0-1.3); Monocytes % 3.4 %; Neutrophils # 8.8 K/mcL (1.6-8.9); Platelet Count 170 K/mcL (140-400); Red Blood Count 3.43 M/mcL (3.82-4.97); Red Cell Distribution Width 15.3 % (11.5-14.5); Segmented Neutrophils % 83.9 %
[2016-09-26 06:30] LABS: Calcium 7.1 mg/dL (8.6-10.8); Magnesium 1.8 mg/dL (1.6-2.6); Phosphorous 2.3 mg/dL (2.3-4.7)
[2016-09-26 06:39] LABS: Potassium 4.3 mEq/L (3.5-4.5)
--- NOTE | 2016-09-26 09:54 | Neurology Progress Note ---
<Faisal Rocha - Last Filed: 09/26/16 09:52> Date of Encounter: 09/26/16 Time of Encounter: 09:52 Assessment and Plan (1) Meningioma Current Visit: Yes Status: Chronic Patient continues to have waxing and waning of her alertness. Her Klonopin has been held and she is again able to follow simple commands and is oriented to self. Patient underwent an EEG yesterday which showed no evidence of epileptiform activity during the study. Recommendations to continue Decadron 2 mg daily as well as Zantac with follow-up in 1 to 2 weeks with her neurologist Dr. Gunter. Neurology to sign off. Subjective Principal diagnosis: mental status changes. acute dystonia Interval history: Patient is again awake and alert to self. Her Klonopin has been held since yesterday. She is able to tell me her name and to follow simple commands. She does appear to have some swelling on her left periorbital region. No documented falls. Appears that she hit her head against the side railing. She has no ecchymosis surrounding the area. No palpable skull fractures. Patient had an EEG performed yesterday which shows no evidence of seizure activity. Objective - Constitutional Vitals: Temp Pulse Resp BP Pulse Ox 97.7 F 73 16 139/89 98 09/26/16 07:53 09/26/16 07:53 09/26/16 07:53 09/26/16 07:53 09/26/16 07:53 General appearance: Present: A&O X 1 (to person), no acute distress - Head Head exam: Present: normocephalic Additional comments: Patient has left periorbital edema - Eye Eye exam: Present: EOMI, periorbital swelling (Left). Absent: conjunctival injection - Extremities Exam Extremities exam: Present: full ROM, normal inspection - Neurological Exam Sensorimotor examination: Present: other (Unable to assess) Motor Examination: Present: grossly full strength in all extremities (Patient moves all extremities however she does have bilateral foot drops.) Sensation intact: Present: other (Uanble to assess due to changes in mental status) Posture: Present: other (Improvement in her orobuccal dyskinesis) Reflex and gait examination: other (Reflexes are diminished throughout.) Mental Status Examination: Present: oriented to person (Patient is able to tell me her name), drowsy, lethargic, follows simple commands Cranial nerve examination: Present: PERRL, EOMI, no facial asymmetry is present - VTE Documentation of Mechanical Device: Intermittent pneumatic compression device Results - Laboratory Findings CBC and BMP: 09/26/16 05:46 09/26/16 05:46 Abnormal lab findings: Abnormal lab results RBC 3.43 M/mcL (3.82-4.97) L 09/26/16 05:46 Hgb 9.7 g/dL (11.5-15.4) L 09/26/16 05:46 Hct 31.0 % (35.3-44.9) L 09/26/16 05:46 MCHC 31.3 g/dL (31.6-35.5) L 09/26/16 05:46 RDW 15.3 % (11.5-14.5) H 09/26/16 05:46 Nucleated RBCs/100 WBC 0.2 /100 WBC (0) H 09/15/16 19:15 PT 13.5 Seconds (9.4-12.1) H 09/24/16 03:25 ABG pCO2 59 mmHg (35-45) H 09/15/16 21:15 ABG HCO3 31.8 mEQ/L (21-27) H 09/15/16 21:15 ABG Total CO2 33.6 mEq/L (20-26) H 09/15/16 21:15 ABG Base Excess 4.9 mEq/L (-2.0 to 3.0) H 09/15/16 21:15 Chloride 115 mEq/L (98-109) H 09/26/16 05:46 Carbon Dioxide 16 mEq/L (19-29) L 09/26/16 05:46 BUN 22 mg/dL (7-20) H 09/26/16 05:46 Creatinine 1.59 mg/dL (0.57-1.11) H 09/26/16 05:46 Est GFR ( Amer) 39 (> 60) L 09/26/16 05:46 Est GFR (Non-Af Amer) 33 (> 60) L 09/26/16 05:46 Glucose 249 mg/dL (70-99) H 09/26/16 05:46 POC Glucose 232 (58-89) H 09/26/16 05:50 Calcium 7.1 mg/dL (8.6-10.8) L 09/26/16 05:46 Ionized Calcium 1.07 mmol/L (1.15-1.35) L 09/26/16 05:46 Total Bilirubin 0.1 mg/dL (0.2-1.2) L 09/24/16 03:25 Ammonia 12 mcmol/L (18-72) L 09/22/16 04:27 B-Natriuretic Peptide 396 pg/mL (0-100) H 09/15/16 19:15 Serum Total Protein 4.1 g/dL (6.0-8.3) L 09/24/16 03:25 Albumin 1.2 g/dL (3.5-5.0) L 09/24/16 03:25 Albumin/Globulin Ratio 0.4 (1.1-2.2) L 09/24/16 03:25 Lipase 4 Units/L (8-78) L 09/15/16 19:15 Urine Protein >=1000 mg/dL (Neg-Trace) H 09/16/16 05:10 Urine Glucose (UA) 250 mg/dL (Normal) H 09/16/16 05:10 Urine Microscopic WBC 3-5 per hpf (0-3) H 09/16/16 05:10 Consult Discharge Plan - Plan Instructions: How to Use and Care for Your PEG Tube (DC), How to Use and Care for Your PEG Tube (GEN), Urinary Tract Infection in Women (DC), Diabetes Mellitus Type 2 in Adults (DC), Chronic Obstructive Pulmonary Disease (DC), Chronic Hypertension (DC), Pneumonia (DC), Cigarette Smoking and Your Health, Telecommunications Professional (GEN) Referrals: NO,PCP [Primary Care Provider] - <Guille Martin - Last Filed: 09/26/16 12:44> Time of Encounter: 12:29 Assessment and Plan (1) Meningioma Current Visit: Yes Status: Chronic (2) Altered mental status Current Visit: Yes Status: Acute This point my major assessment is that the waxing and waning mental status is likely due to medication effect. I agree with stopping the Klonopin. I would have her follow up with her primary neurologist upon discharge for further assessment and recommendations. Qualifiers: Altered mental status type: unspecified Qualified Code(s): R41.82 - Altered mental status, unspecified Subjective Interval history: Chart was reviewed, and the patient was seen and examined. Today she is sleeping and open eyes to voice, however she is still somnolent and not fully conversant. She will not follow commands however she does withdraw to vigorous plantar stimulation. She yells out when stimulated. Events of yesterday were noted. I did review her EEG which did not reveal evidence of seizure activity, however does reveal abnormalities consistent with an underlying delirium or dementia. Objective - Constitutional Vitals: Temp Pulse Resp BP Pulse Ox 97.8 F 78 16 131/69 98 09/26/16 11:44 09/26/16 11:44 09/26/16 11:44 09/26/16 11:44 09/26/16 11:44 Results - Laboratory Findings CBC and BMP: 09/26/16 05:46 09/26/16 05:46 Abnormal lab findings: Abnormal lab results RBC 3.43 M/mcL (3.82-4.97) L 09/26/16 05:46 Hgb 9.7 g/dL (11.5-15.4) L 09/26/16 05:46 Hct 31.0 % (35.3-44.9) L 09/26/16 05:46 MCHC 31.3 g/dL (31.6-35.5) L 09/26/16 05:46 RDW 15.3 % (11.5-14.5) H 09/26/16 05:46 Nucleated RBCs/100 WBC 0.2 /100 WBC (0) H 09/15/16 19:15 PT 13.5 Seconds (9.4-12.1) H 09/24/16 03:25 ABG pCO2 59 mmHg (35-45) H 09/15/16 21:15 ABG HCO3 31.8 mEQ/L (21-27) H 09/15/16 21:15 ABG Total CO2 33.6 mEq/L (20-26) H 09/15/16 21:15 ABG Base Excess 4.9 mEq/L (-2.0 to 3.0) H 09/15/16 21:15 Chloride 115 mEq/L (98-109) H 09/26/16 05:46 Carbon Dioxide 16 mEq/L (19-29) L 09/26/16 05:46 BUN 22 mg/dL (7-20) H 09/26/16 05:46 Creatinine 1.59 mg/dL (0.57-1.11) H 09/26/16 05:46 Est GFR ( Amer) 39 (> 60) L 09/26/16 05:46 Est GFR (Non-Af Amer) 33 (> 60) L 09/26/16 05:46 Glucose 249 mg/dL (70-99) H 09/26/16 05:46 POC Glucose 232 (58-89) H 09/26/16 05:50 Calcium 7.1 mg/dL (8.6-10.8) L 09/26/16 05:46 Ionized Calcium 1.07 mmol/L (1.15-1.35) L 09/26/16 05:46 Total Bilirubin 0.1 mg/dL (0.2-1.2) L 09/24/16 03:25 Ammonia 12 mcmol/L (18-72) L 09/22/16 04:27 B-Natriuretic Peptide 396 pg/mL (0-100) H 09/15/16 19:15 Serum Total Protein 4.1 g/dL (6.0-8.3) L 09/24/16 03:25 Albumin 1.2 g/dL (3.5-5.0) L 09/24/16 03:25 Albumin/Globulin Ratio 0.4 (1.1-2.2) L 09/24/16 03:25 Lipase 4 Units/L (8-78) L 09/15/16 19:15 Urine Protein >=1000 mg/dL (Neg-Trace) H 09/16/16 05:10 Urine Glucose (UA) 250 mg/dL (Normal) H 09/16/16 05:10 Urine Microscopic WBC 3-5 per hpf (0-3) H 09/16/16 05:10
[2016-09-26] MEDS: Aspirin 325 MG TABLET GTUBE SCH (10:26)
[2016-09-26] MEDS: Spironolactone 25 MG TABLET GTUBE SCH ×2 (10:26→20:46)
[2016-09-26] MEDS: hydrALAZINE 25 MG TABLET GTUBE SCH ×3 (10:26→20:45)
[2016-09-26] MEDS: Thiamine (B-1) 100 MG TABLET GTUBE SCH (10:26)
[2016-09-26] MEDS: clonazePAM 0.5 MG TABLET GTUBE SCH ×2 (10:27→20:46)
--- NOTE | 2016-09-26 10:52 | Internal Med Progress Note ---
<Jacob Velasquez - Last Filed: 09/26/16 14:35> Date of Encounter: 09/26/16 Time of Encounter: 10:00 - Assessment and plan (1) Acute metabolic encephalopathy Current Visit: Yes Status: Acute Assessment and plan: - Likely psychiatric given her history of Schizophrenia on chronic psych medications. But meningoma and electrolyte abnormality may also play some role. - Fluctuating mental status as patient was more alert this morning but worse this afternoon. - Appreciate neurology and psychiatry input and assistance on patient care. - Monitor & correct electrolyte abnormality. - PT/OT recommends SNF placement. Dr. West had lengthy discussion with patient' s significant other and step father. They verbalized their understanding about her current condition and agreed to have SNF/rehab placement for patient after discharge. - Pending placement. Appreciate social service assistance. 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 There is mass effect o the adjacent inferior frontal lobes, worse on the right than the left. Vasogenic edema is noted in the bilateral inferior frontal lobes, moderate on the right and mild on the left. No evidence of acute infarct. - Neurology on board and recommends Decadron 2 mg daily & Zantac and outpatient neurology follow-up with Dr. Gunter in 1-2 weeks. (3) Anorexia Current Visit: Yes Status: Acute Assessment and plan: - Status post PEG tube placement 09/24/15 - Roll Setter on board. Appreciate nutrition recommends on patient care especially regarding tube feeding. (4) Schizophrenia Current Visit: Yes Status: Chronic Assessment and plan: - History of tardive dyskinesia. - Psychiatric was consulted. - Seroquel has been discontinued and benztropine has been added as psychiatry recommended. - Continue Risperdal and benztropine. - Psychiatry thinks no indication for inpatient psychiatry care at this time. Qualifiers: Schizophrenia type: undifferentiated schizophrenia Qualified Code(s): F20.3 - Undifferentiated schizophrenia (5) Aspiration pneumonia due to gastric secretions Current Visit: Yes Status: Resolved Assessment and plan: - CXR found left base airspace opacity. Also having leukocytosis on initial presentation raising the concern of pneumonia. - No growth on blood cultures. - Patient had finished 9-days of cefempime. - Resolved as patient has been afebrile, non-tachycardic and leukocytosis normalized. Qualifiers: Laterality: left Lung location: lower lobe of lung Qualified Code(s): J69.0 - Pneumonitis due to inhalation of food and vomit (6) Hypocalcemia Current Visit: Yes Status: Acute Assessment and plan: - Ca 7.1 today. - Continue to monitor. (7) Hypokalemia Current Visit: No Status: Resolved Assessment and plan: - Resolved as K 4.3 today - Continue to monitor. (8) Hypomagnesemia Current Visit: Yes Status: Resolved Assessment and plan: - Resolved as Mg 1.8 today. - Continue to monitor. (9) DVT prophylaxis Current Visit: Yes Status: Acute Assessment and plan: - SQ heparin. - Subjective Interval history: No significant event noted overnight. Patient was seen and examined this morning. Patient is somnolent but arousable to verbal stimuli this morning. - Constitutional Vitals: Temp Pulse Resp BP Pulse Ox 97.7 F 73 16 139/89 98 09/26/16 07:53 09/26/16 07:53 09/26/16 07:53 09/26/16 07:53 09/26/16 07:53 General appearance: Present: A&O X 0, disheveled, no acute distress - Head Head exam: Present: atraumatic, normocephalic - Neck Neck exam general surgery: Present: supple, trachea midline - Respiratory Respiratory exam: Present: decreased breath sounds. Absent: accessory muscle use, rales, rhonchi, wheezes - Cardiovascular Cardiovascular exam: Present: RRR, +S1, +S2. Absent: diastolic murmur, gallop, rubs, systolic murmur - GI/Abdominal GI/Abdominal exam: Present: normal bowel sounds, soft, no peritoneal signs. Absent: distended Additional comments: Gtube in place. - Extremities Exam Extremities exam: Present: warm, radial pulses palpable and symetrical. Absent : calf tenderness, cyanotic, pedal edema - Neurological Exam Additional comments: Hypersomnolent but arousable to verbal stimuli. Patient is following commands. - Skin Skin exam: Present: dry, intact, warm Internal Medicine: Result - Labs CBC & Chem 7: 09/26/16 05:46 09/26/16 05:46 Labs: Short CBC 09/26/16 Range/Units 05:46 WBC 10.5 (4.3-11.1) K/mcL Hgb 9.7 L (11.5-15.4) g/dL Hct 31.0 L (35.3-44.9) % Plt Count 170 (140-400) K/mcL Neutrophils # 8.8 (1.6-8.9) K/mcL BMP 09/26/16 05:46 Sodium 136 Potassium 4.3 D Chloride 115 H Carbon Dioxide 16 L BUN 22 H Creatinine 1.59 H Glucose 249 H Calcium 7.1 L - ABG Interpretation ABG results: ABG ABG pH 7.34 pH Units (7.32-7.45) 09/15/16 21:15 ABG pCO2 59 mmHg (35-45) H 09/15/16 21:15 ABG pO2 89 mmHg (85-104) 09/15/16 21:15 ABG O2 Saturation 96 % (95-98) 09/15/16 21:15 PT/INR, D-dimer PT 13.5 Seconds (9.4-12.1) H 09/24/16 03:25 - VTE Documentation of Mechanical Device: Intermittent pneumatic compression device Consult Discharge Plan - Plan Instructions: How to Use and Care for Your PEG Tube (DC), How to Use and Care for Your PEG Tube (GEN), Urinary Tract Infection in Women (DC), Diabetes Mellitus Type 2 in Adults (DC), Chronic Obstructive Pulmonary Disease (DC), Chronic Hypertension (DC), Pneumonia (DC), Cigarette Smoking and Your Health, Stepdown Nurse (GEN) Referrals: NO,PCP [Primary Care Provider] - <Zeke West P - Last Filed: 09/26/16 18:33> - Constitutional Vitals: Temp Pulse Resp BP Pulse Ox 98.7 F 84 18 144/61 100 09/26/16 15:38 09/26/16 15:38 09/26/16 15:38 09/26/16 15:38 09/26/16 15:38 Internal Medicine: Result - Labs CBC & Chem 7: 09/26/16 05:46 09/26/16 05:46 Labs: Short CBC 09/26/16 Range/Units 05:46 WBC 10.5 (4.3-11.1) K/mcL Hgb 9.7 L (11.5-15.4) g/dL Hct 31.0 L (35.3-44.9) % Plt Count 170 (140-400) K/mcL Neutrophils # 8.8 (1.6-8.9) K/mcL BMP 09/26/16 05:46 Sodium 136 Potassium 4.3 D Chloride 115 H Carbon Dioxide 16 L BUN 22 H Creatinine 1.59 H Glucose 249 H Calcium 7.1 L - ABG Interpretation ABG results: ABG ABG pH 7.34 pH Units (7.32-7.45) 09/15/16 21:15 ABG pCO2 59 mmHg (35-45) H 09/15/16 21:15 ABG pO2 89 mmHg (85-104) 09/15/16 21:15 ABG O2 Saturation 96 % (95-98) 09/15/16 21:15 PT/INR, D-dimer PT 13.5 Seconds (9.4-12.1) H 09/24/16 03:25 - Attending Attestation I examined this patient and my medical decision-making was reviewed with the [employer] DEVELOPER/PA/Advanced Practice Nurse/Resident Physician. I agree with the documented findings, disposition and treatment plan as described except to the extent set forth below.
[2016-09-26] MEDS: risperiDONE 1 MG TABLET PO SCH (20:46)
[2016-09-27] MEDS: Insulin LISPRO 300 UNITS/3 ML VIAL SQ SCH ×4 (00:12→17:40)
[2016-09-27] MEDS: *HR* Heparin 5,000 UNIT/ML VIAL SQ SCH ×2 (05:42→16:56)
[2016-09-27 08:00] LABS: Basophils % 0.1 %; Eosinophils % 0.5 %; Hematocrit 28.1 % (35.3-44.9); Hemoglobin 8.8 g/dL (11.5-15.4); Immature Granulocytes % 0.4 % (0-4); Lymphocytes # 1.6 K/mcL (0.6-4.6); Lymphocytes % 18.4 %; Mean Corpuscular HGB Conc 31.3 g/dL (31.6-35.5); Mean Corpuscular Hemoglobin 28.5 pg (28.0-33.3); Mean Corpuscular Volume 90.9 fL (83.0-100.0); Mean Platelet Volume 11.1 fL (9.4-12.4); Monocytes # 1.1 K/mcL (0.0-1.3); Monocytes % 13.4 %; Neutrophils # 5.7 K/mcL (1.6-8.9); Platelet Count 184 K/mcL (140-400); Red Blood Count 3.09 M/mcL (3.82-4.97); Red Cell Distribution Width 15.6 % (11.5-14.5); Segmented Neutrophils % 67.2 %
[2016-09-27 08:17] LABS: Calcium 7.1 mg/dL (8.6-10.8); Potassium 4.1 mEq/L (3.5-4.5)
[2016-09-27] MEDS: hydrALAZINE 25 MG TABLET GTUBE SCH ×3 (10:07→21:59)
[2016-09-27] MEDS: Spironolactone 25 MG TABLET GTUBE SCH ×2 (10:08→22:00)
[2016-09-27] MEDS: clonazePAM 0.5 MG TABLET GTUBE SCH ×2 (10:08→22:00)
[2016-09-27] MEDS: Thiamine (B-1) 100 MG TABLET GTUBE SCH (10:08)
[2016-09-27] MEDS: Aspirin 325 MG TABLET GTUBE SCH (10:08)
--- NOTE | 2016-09-27 18:03 | Internal Med Progress Note ---
Date of Encounter: 09/27/16 Time of Encounter: 18:01 - Assessment and plan (1) Acute metabolic encephalopathy Current Visit: Yes Status: Acute Assessment and plan: - Likely psychiatric given her history of Schizophrenia on chronic psych medications. But meningoma and electrolyte abnormality may also play some role. - Fluctuating mental status as patient was more alert this morning but worse this afternoon. - Appreciate neurology and psychiatry input and assistance on patient care. - Monitor & correct electrolyte abnormality. - PT/OT recommends SNF placement. Dr. West had lengthy discussion with patient' s significant other and step father. They verbalized their understanding about her current condition and agreed to have SNF/rehab placement for patient after discharge. - Pending placement. Appreciate social service assistance. 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 There is mass effect o the adjacent inferior frontal lobes, worse on the right than the left. Vasogenic edema is noted in the bilateral inferior frontal lobes, moderate on the right and mild on the left. No evidence of acute infarct. - Neurology on board and recommends Decadron 2 mg daily & Zantac and outpatient neurology follow-up with Dr. Gunter in 1-2 weeks. (3) Anorexia Current Visit: Yes Status: Acute Assessment and plan: - Status post PEG tube placement 09/24/15 - Toy Mechanic on board. Appreciate nutrition recommends on patient care especially regarding tube feeding. (4) Schizophrenia Current Visit: Yes Status: Chronic Assessment and plan: - History of tardive dyskinesia. - Psychiatric was consulted. - Seroquel has been discontinued and benztropine has been added as psychiatry recommended. - Continue Risperdal and benztropine. - Psychiatry thinks no indication for inpatient psychiatry care at this time. Qualifiers: Schizophrenia type: undifferentiated schizophrenia Qualified Code(s): F20.3 - Undifferentiated schizophrenia (5) Aspiration pneumonia due to gastric secretions Current Visit: Yes Status: Resolved Assessment and plan: - CXR found left base airspace opacity. Also having leukocytosis on initial presentation raising the concern of pneumonia. - No growth on blood cultures. - Patient had finished 9-days of cefempime. - Resolved as patient has been afebrile, non-tachycardic and leukocytosis normalized. Qualifiers: Laterality: left Lung location: lower lobe of lung Qualified Code(s): J69.0 - Pneumonitis due to inhalation of food and vomit - Subjective Interval history: Patient seen and examined. Chart reviewed. No new complaints noted. - Constitutional Vitals: Temp Pulse Resp BP Pulse Ox 98.1 F 77 17 161/91 97 09/27/16 15:37 09/27/16 15:37 09/27/16 15:37 09/27/16 15:37 09/27/16 15:37 General appearance: Present: A&O X 0, disheveled, no acute distress - Head Head exam: Present: atraumatic, normocephalic - Eye Eye exam: Present: PERRL, conjuntiva pink, sclera anicteric Pupils: Present: PERRL - Neck Neck exam general surgery: Present: supple, trachea midline. Absent: lymphadenopathy - Respiratory Respiratory exam: Present: CTAB. Absent: accessory muscle use, rales, rhonchi, wheezes - Cardiovascular Cardiovascular exam: Present: RRR, +S1, +S2. Absent: diastolic murmur, gallop, rubs, systolic murmur - GI/Abdominal GI/Abdominal exam: Present: normal bowel sounds, soft, no peritoneal signs. Absent: distended, tenderness - Extremities Exam Extremities exam: Present: warm, radial pulses palpable and symetrical. Absent : calf tenderness, cyanotic, pedal edema - Neurological Exam Neurological exam: Present: CN II-XII intact, oriented X3, no focal deficits. Absent: pronater drift, facial droop, speech deficit - Skin Skin exam: Present: dry, intact Internal Medicine: Result - Labs CBC & Chem 7: 09/27/16 07:50 09/27/16 07:50 Labs: Short CBC 09/27/16 Range/Units 07:50 WBC 8.4 (4.3-11.1) K/mcL Hgb 8.8 L (11.5-15.4) g/dL Hct 28.1 L (35.3-44.9) % Plt Count 184 (140-400) K/mcL Neutrophils # 5.7 (1.6-8.9) K/mcL BMP 09/27/16 07:50 Sodium 138 Potassium 4.1 Chloride 115 H Carbon Dioxide 19 BUN 27 H Creatinine 1.85 H Glucose 338 H Calcium 7.1 L - ABG Interpretation ABG results: ABG ABG pH 7.34 pH Units (7.32-7.45) 09/15/16 21:15 ABG pCO2 59 mmHg (35-45) H 09/15/16 21:15 ABG pO2 89 mmHg (85-104) 09/15/16 21:15 ABG O2 Saturation 96 % (95-98) 09/15/16 21:15 PT/INR, D-dimer PT 13.5 Seconds (9.4-12.1) H 09/24/16 03:25 - VTE Documentation of Mechanical Device: Intermittent pneumatic compression device Consult Discharge Plan - Plan Instructions: How to Use and Care for Your PEG Tube (DC), How to Use and Care for Your PEG Tube (GEN), Urinary Tract Infection in Women (DC), Diabetes Mellitus Type 2 in Adults (DC), Chronic Obstructive Pulmonary Disease (DC), Chronic Hypertension (DC), Pneumonia (DC), Cigarette Smoking and Your Health, 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
[2016-09-27] MEDS ORDERED: Acetaminophen 325 MG TABLET PO PRN (19:32)
[2016-09-27] MEDS: risperiDONE 1 MG TABLET PO SCH (21:59)
[2016-09-28] MEDS: Insulin LISPRO 300 UNITS/3 ML VIAL SQ SCH ×4 (00:08→18:06)
[2016-09-28] MEDS: *HR* Heparin 5,000 UNIT/ML VIAL SQ SCH ×2 (06:21→18:06)
[2016-09-28] MEDS: hydrALAZINE 25 MG TABLET GTUBE SCH ×3 (09:39→21:21)
[2016-09-28] MEDS: Spironolactone 25 MG TABLET GTUBE SCH ×2 (09:39→21:22)
[2016-09-28] MEDS: Thiamine (B-1) 100 MG TABLET GTUBE SCH (09:39)
[2016-09-28] MEDS: clonazePAM 0.5 MG TABLET GTUBE SCH ×2 (09:40→21:22)
[2016-09-28] MEDS: Aspirin 325 MG TABLET GTUBE SCH (09:40)
--- NOTE | 2016-09-28 15:20 | Internal Med Progress Note ---
Date of Encounter: 09/28/16 Time of Encounter: 14:58 - Assessment and plan (1) Acute metabolic encephalopathy Current Visit: Yes Status: Acute Assessment and plan: - Likely psychiatric given her history of Schizophrenia on chronic psych medications. But meningoma and electrolyte abnormality may also play some role. - Fluctuating mental status as patient was more alert this morning but worse this afternoon. - Appreciate neurology and psychiatry input and assistance on patient care. - Monitor & correct electrolyte abnormality. - PT/OT recommends SNF placement. Dr. West had lengthy discussion with patient' s significant other and step father. They verbalized their understanding about her current condition and agreed to have SNF/rehab placement for patient after discharge. - Pending placement. Appreciate social service assistance. 09/28/2016 -Patient is more alert today. -Noted that because of weekend the placement is scheduled early next week. 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 There is mass effect o the adjacent inferior frontal lobes, worse on the right than the left. Vasogenic edema is noted in the bilateral inferior frontal lobes, moderate on the right and mild on the left. No evidence of acute infarct. - Neurology on board and recommends Decadron 2 mg daily & Zantac and outpatient neurology follow-up with Dr. Gunter in 1-2 weeks. 09/28/2016. Patient is improved neurologically. Neurology has signed off and they will see as outpatient. (3) Anorexia Current Visit: Yes Status: Acute Assessment and plan: - Status post PEG tube placement 09/24/15 - Donation Worker on board. Appreciate nutrition recommends on patient care especially regarding tube feeding. (4) Schizophrenia Current Visit: Yes Status: Chronic Assessment and plan: - History of tardive dyskinesia. - Psychiatric was consulted. - Seroquel has been discontinued and benztropine has been added as psychiatry recommended. - Continue Risperdal and benztropine. - Psychiatry thinks no indication for inpatient psychiatry care at this time. Qualifiers: Schizophrenia type: undifferentiated schizophrenia Qualified Code(s): F20.3 - Undifferentiated schizophrenia (5) Aspiration pneumonia due to gastric secretions Current Visit: Yes Status: Resolved Assessment and plan: - CXR found left base airspace opacity. Also having leukocytosis on initial presentation raising the concern of pneumonia. - No growth on blood cultures. - Patient had finished 9-days of cefempime. - Resolved as patient has been afebrile, non-tachycardic and leukocytosis normalized. Qualifiers: Laterality: left Lung location: lower lobe of lung Qualified Code(s): J69.0 - Pneumonitis due to inhalation of food and vomit - Subjective Interval history: Patient seen and examined. Chart reviewed. No new complaints noted. 09/28/2016. Patient seen and examined. No new complaints. - Constitutional Vitals: Temp Pulse Resp BP Pulse Ox 99 F 74 16 160/87 97 09/28/16 11:34 09/28/16 11:34 09/28/16 11:34 09/28/16 11:34 09/28/16 11:34 General appearance: Present: A&O X 0, disheveled, no acute distress - Head Head exam: Present: atraumatic, normocephalic - Eye Eye exam: Present: PERRL, conjuntiva pink, sclera anicteric Pupils: Present: PERRL - Neck Neck exam general surgery: Present: supple, trachea midline. Absent: lymphadenopathy - Respiratory Respiratory exam: Present: CTAB. Absent: accessory muscle use, rales, rhonchi, wheezes - Cardiovascular Cardiovascular exam: Present: RRR, +S1, +S2. Absent: diastolic murmur, gallop, rubs, systolic murmur - GI/Abdominal GI/Abdominal exam: Present: normal bowel sounds, soft, no peritoneal signs. Absent: distended, tenderness - Extremities Exam Extremities exam: Present: warm, radial pulses palpable and symetrical. Absent : calf tenderness, cyanotic, pedal edema - Neurological Exam Neurological exam: Present: CN II-XII intact, oriented X3, no focal deficits. Absent: pronater drift, facial droop, speech deficit - Skin Skin exam: Present: dry, intact Internal Medicine: Result - Labs CBC & Chem 7: 09/27/16 07:50 09/27/16 07:50 - ABG Interpretation ABG results: ABG ABG pH 7.34 pH Units (7.32-7.45) 09/15/16 21:15 ABG pCO2 59 mmHg (35-45) H 09/15/16 21:15 ABG pO2 89 mmHg (85-104) 12/26/16 21:15 ABG O2 Saturation 96 % (95-98) 09/15/16 21:15 PT/INR, D-dimer PT 13.5 Seconds (9.4-12.1) H 09/24/16 03:25 - VTE Documentation of Mechanical Device: Intermittent pneumatic compression device Consult Discharge Plan - Plan Instructions: How to Use and Care for Your PEG Tube (DC), How to Use and Care for Your PEG Tube (GEN), Urinary Tract Infection in Women (DC), Diabetes Mellitus Type 2 in Adults (DC), Chronic Obstructive Pulmonary Disease (DC), Chronic Hypertension (DC), Pneumonia (DC), Cigarette Smoking and Your Health, 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
[2016-09-28] MEDS: risperiDONE 1 MG TABLET PO SCH (21:22)
[2016-09-29] MEDS: Insulin LISPRO 300 UNITS/3 ML VIAL SQ SCH ×3 (00:29→09:29)
[2016-09-29 05:13] LABS: Hematocrit 28.5 % (35.3-44.9); Hemoglobin 8.8 g/dL (11.5-15.4); Immature Granulocytes % 1.3 % (0-4); Lymphocytes # 1.5 K/mcL (0.6-4.6); Lymphocytes % 14.8 %; Mean Corpuscular HGB Conc 30.9 g/dL (31.6-35.5); Mean Corpuscular Hemoglobin 28.2 pg (28.0-33.3); Mean Corpuscular Volume 91.3 fL (83.0-100.0); Monocytes # 1.2 K/mcL (0.0-1.3); Monocytes % 11.6 %; Neutrophils # 7.2 K/mcL (1.6-8.9); Platelet Count 179 K/mcL (140-400); Red Blood Count 3.12 M/mcL (3.82-4.97); Red Cell Distribution Width 15.8 % (11.5-14.5); Segmented Neutrophils % 72.3 %
[2016-09-29] MEDS: *HR* Heparin 5,000 UNIT/ML VIAL SQ SCH (05:16)
[2016-09-29 05:28] LABS: Albumin/Globulin Ratio 0.4 (1.1-2.2); Bilirubin,Total 0.2 mg/dL (0.2-1.2); Calcium 7.4 mg/dL (8.6-10.8); Globulin 3.2 g/dL (2.4-3.5); Potassium 4.8 mEq/L (3.5-4.5); Total Protein 4.5 g/dL (6.0-8.3)
[2016-09-29 05:42] LABS: Albumin 1.3 g/dL (3.5-5.0)
[2016-09-29] MEDS: Thiamine (B-1) 100 MG TABLET GTUBE SCH (08:40)
[2016-09-29] MEDS: clonazePAM 0.5 MG TABLET GTUBE SCH (08:40)
[2016-09-29] MEDS: Aspirin 325 MG TABLET GTUBE SCH (08:40)
[2016-09-29] MEDS: Spironolactone 25 MG TABLET GTUBE SCH (08:40)
[2016-09-29] MEDS: hydrALAZINE 25 MG TABLET GTUBE SCH (09:04)
--- NOTE | 2016-09-29 09:27 | Discharge Summary ---
<Guanako Lewis - Last Filed: 09/29/16 15:54> Date of Encounter: 09/29/16 Time of Encounter: 09:00 - Discharge Diagnosis (1) Acute metabolic encephalopathy Priority: Primary Status: Acute (2) Aspiration pneumonia due to gastric secretions Priority: Secondary Status: Resolved Qualifiers: Laterality: left Lung location: lower lobe of lung Qualified Code(s): J69.0 - Pneumonitis due to inhalation of food and vomit (3) Hypertension Priority: Secondary Status: Chronic Qualifiers: Hypertension type: essential hypertension Qualified Code(s): I10 - Essential (primary) hypertension (4) CKD (chronic kidney disease) Priority: Secondary Status: Chronic Qualifiers: Chronic kidney disease stage: stage 4 (severe) Qualified Code(s): N18.4 - Chronic kidney disease, stage 4 (severe) (5) Meningioma Priority: Secondary Status: Chronic (6) Schizophrenia Priority: Secondary Status: Chronic Qualifiers: Schizophrenia type: undifferentiated schizophrenia Qualified Code(s): F20.3 - Undifferentiated schizophrenia - Discharge Medications Prescriptions: Aspirin 325 mg GTUBE DAILY #30 tablet Benztropine [Cogentin] 1 mg GTUBE BID #60 tablet Carvedilol [Coreg] 25 mg GTUBE BID #60 tablet Dexamethasone [Decadron] 2 mg PO DAILY #30 tablet Lactose-Reduced Food/Fiber [Jevity 1.5 Miguel Liquid] 1 can GTUBE QID #24 can Ranitidine Oral Soln [Zantac] 150 mg GTUBE DAILY 30 Days Spironolactone [Aldactone] 25 mg GTUBE BID #30 tablet Terazosin [Hytrin] 2 mg GTUBE HS #60 capsule Home Medications: Simvastatin [Zocor] 20 mg PO HS 02/07/16 [History] Calcium Polycarbophil [Fiber-Caps] 625 mg PO QID PRN 05/22/16 [History] Cholecalciferol (Vitamin D3) [Vitamin D3] 50,000 unit PO QWEEK 07/21/16 [History ] Docusate [Colace] 100 mg PO DAILY PRN 07/21/16 [History] Ferrous Sulfate 325 mg PO TID 07/21/16 [History] Mirtazapine [Remeron] 15 mg PO HS 07/21/16 [History] Oxybutynin [Ditropan] 5 mg PO BID 07/21/16 [History] Quetiapine Fumarate [Seroquel] 200 mg PO HS 07/21/16 [History] RisperiDONE [Risperdal] 1 mg PO HS 07/21/16 [History] Hydralazine HCl 100 mg PO TID 7 Days 08/20/16 [Rx] Albuterol Sulfate [Albuterol Inhaler] 2 puff IH Q4HR 09/16/16 [History] Budesonide/Formoterol 160/4.5 [Symbicort 160/4.5] 2 puff IH BID 09/16/16 [ History] Furosemide [Lasix] 20 mg PO DAILY 09/16/16 [History] Insulin DETEMIR [Levemir] 6 unit SQ BID 09/16/16 [History] Ipratropium [ATROVENT Inhaler] 2 puff IH QID 09/16/16 [History] Lisinopril [Zestril] 10 mg PO DAILY 09/16/16 [History] Polyethylene Glycol 3350 [MiraLAX] 17 gm PO DAILY 09/16/16 [History] Aspirin 325 mg GTUBE DAILY #30 tablet 09/29/16 [Rx] Benztropine [Cogentin] 1 mg GTUBE BID #60 tablet 09/29/16 [Rx] Carvedilol [Coreg] 25 mg GTUBE BID #60 tablet 09/29/16 [Rx] Dexamethasone [Decadron] 2 mg PO DAILY #30 tablet 09/29/16 [Rx] Lactose-Reduced Food/Fiber [Jevity 1.5 Miguel Liquid] 1 can GTUBE QID #24 can 09/29 [Rx] Ranitidine Oral Soln [Zantac] 150 mg GTUBE DAILY 30 Days 09/29/16 [Rx] Spironolactone [Aldactone] 25 mg GTUBE BID #30 tablet 09/29/16 [Rx] Terazosin [Hytrin] 2 mg GTUBE HS #60 capsule 09/29/16 [Rx] Allergies/Adverse Reactions: Allergies ciprofloxacin [From Cipro] Adverse Reaction (Verified 12/09/15 21:28) Hives sulfamethoxazole [From Bactrim] Adverse Reaction (Verified 12/09/15 21:28) See Comments trimethoprim [From Bactrim] Adverse Reaction (Verified 12/09/15 21:28) See Comments Date of admission: 09/16/16 10:25 Primary care physician: PCP NO Consults: 09/22/16 07:38 Consult to Psychiatry [CONS] Routine Consulting Provider: Psychiatry [facility] Reason for Consult: AMS, tardive dyskinesia Time Notified: 07:38 Call Completed: Yes 09/22/16 14:24 Consult to Surgery [CONS] Routine Consulting Provider: Surgery [facility] Reason for Consult: PEG tube Time Notified: 14:24 Call Completed: Yes 09/25/16 10:01 consult to websphere consultant [Consult to Nutrition] [CONS] Routine Comment: Tube feeding Consulting Provider: NUTRITION Reason for Dietary Consult: TF Start and Manage 09/25/16 11:48 OT [Consult to Occupational Therapy] [CONS] Routine Comment: Evaluate, develop and implement POC 09/25/16 15:16 Consult to Interpret Exam [CONS] Routine Consulting Provider: Guille Martin Consult to Interpret Exam: Interpret EEG 09/16/16 13:18 Consult to Neurology [CONS] Routine Consulting Provider: [facility] Reason for Consult: AMS, subacute infarct Time Notified: 12:00 Call Completed: Yes 09/16/16 14:40 Consult to Speech Therapy [CONS] Stat Comment: Evaluate, develop and implement POC Reason for Consult: NPO d/t stroke Call Completed: No Discharging clinician: Zeke West Anticipated date of discharge: 09/29/16 - Patient Status Disposition: Transfer SNF Condition: Fair Functional capacity at discharge: bed bound Overall status at discharge: patient is progressing back to baseline - Discharge Instructions Instructions: Spironolactone (By mouth), Terazosin (By mouth), Ranitidine (By mouth), Aspirin (By mouth), Benztropine Mesylate (By mouth), Carvedilol (By mouth), Dexamethasone (By mouth), How to Use and Care for Your PEG Tube (DC), How to Use and Care for Your PEG Tube (GEN), Urinary Tract Infection in Women ( DC), Diabetes Mellitus Type 2 in Adults (DC), Chronic Obstructive Pulmonary Disease (DC), Chronic Hypertension (DC), Pneumonia (DC), Cigarette Smoking and Your Health, 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 Please follow up with Dr. Gunter, neurologist, in 1-2 weeks - Diet and Activity Activity: as per physical therapy Diet: other (mechanically altered diet with Ensure supplments. Tube feeds with Jevity 1.5 4 cans/day with 100 ml water flushes before and after each can. Tube feed to provide 1420 calories, 60 grams protein, 1520 total water. Supplement mechanically altered diet with 1 can of Ensure each day.) Hospital course: Ms. Hayes is a 65 year old female with history of schizophrenia presented with altered mental status likely related to psychiatric meds/disease. She was unable to converse nor follow commands and displayed tardive movements. Len- father and life partner have been at bedside frequently during her stay and reports that at her baseline, she can converse and walk with assistance. She also possibly aspirated and CXR demonstrated left lower opacity and she was started on Cefepime. Head CT showed possible subacute infarct but MRI showed 2 cm olfactory mass which was already known by her neurologist, Dr. Gunter, who saw the patient and stated the mass had not grown in size from the previous study. Neurology recommends Decadron 2 mg daily as there was signs of vasogenic edema on scan. Patient did respond to the steroids and her mental status improved slightly. Psychiatry was also consulted for medication management and recommended continuing Risperdal and Benztropine while stopping her Seroquel. Psychiatry thinks inpatient psychiatric care not indicated but recommended that she go home to SNF. Len father was interested in getting the patient a PEG tube as she has history of decreased oral intake and aspiration. Surgery was consulted and placed the PEG and stared on tube feeding along with several medications that were difficult to administer orally for her. Today the patient is awake and alert, following commands appropriately. She reports no issues with breathing or pain and is eager to leave the hospital. She will be going to [place] with Decadron and Zantac while continuing her Risperdal and Benztropine. Patient will continue to have tube feeds and supplemental nutrition per [facility] Diet[facility] recommendations. Please refer to daily progress notes for more in depth details on hospital course. - Time Spent with Patient Total time spent providing and/or coordinating discharge services: Greater than 30 minutes - Constitutional Vitals: Temp Pulse Resp BP Pulse Ox 98.9 F 77 16 177/105 100 09/29/16 07:16 09/29/16 07:16 09/29/16 07:16 09/29/16 07:16 09/29/16 07:16 General appearance: Present: A&O X 0, disheveled, no acute distress, answers questions appropriately (responds in 1-2 word sentences, difficult to understand ) - Head Head exam: Present: atraumatic, normocephalic - Eye Eye exam: Present: PERRL, conjuntiva pink, sclera anicteric - Neck Neck exam general surgery: Present: supple, trachea midline. Absent: lymphadenopathy - Respiratory Respiratory exam: Present: CTAB. Absent: accessory muscle use, rales, rhonchi, wheezes - Cardiovascular Cardiovascular exam: Present: RRR, +S1, +S2. Absent: diastolic murmur, gallop, rubs, systolic murmur - GI/Abdominal GI/Abdominal exam: Present: normal bowel sounds, soft, no peritoneal signs. Absent: distended, tenderness - Extremities Exam Extremities exam: Present: pedal edema (trace), warm, radial pulses palpable and symetrical. Absent: calf tenderness, cyanotic - Neurological Exam Neurological exam: Present: alert, no focal deficits, speech deficit. Absent: oriented X3, pronater drift, facial droop Additional comments: still has tardive movements, however improved - Skin Skin exam: Present: dry, intact - VTE Documentation of Mechanical Device: Intermittent pneumatic compression device <Zeke West P - Last Filed: 09/29/16 18:22> - Discharge Diagnosis (1) Acute metabolic encephalopathy Status: Acute (2) Meningioma Status: Chronic (3) Anorexia Status: Acute (4) Schizophrenia Status: Chronic Qualifiers: Schizophrenia type: undifferentiated schizophrenia Qualified Code(s): F20.3 - Undifferentiated schizophrenia (5) Aspiration pneumonia due to gastric secretions Status: Resolved Qualifiers: Laterality: left Lung location: lower lobe of lung Qualified Code(s): J69.0 - Pneumonitis due to inhalation of food and vomit Date of admission: 09/16/16 10:25 Primary care physician: PCP NO Consults: 09/22/16 07:38 Consult to Psychiatry [CONS] Routine Consulting Provider: Psychiatry [facility] Reason for Consult: AMS, tardive dyskinesia Time Notified: 07:38 Call Completed: Yes 09/22/16 14:24 Consult to Surgery [CONS] Routine Consulting Provider: [facility] Reason for Consult: PEG tube Time Notified: 14:24 Call Completed: Yes 09/25/16 10:01 consult to websphere consultant [Consult to Nutrition] [CONS] Routine Comment: Tube feeding Consulting Provider: NUTRITION Reason for Dietary Consult: TF Start and Manage 09/25/16 11:48 OT [Consult to Occupational Therapy] [CONS] Routine Comment: Evaluate, develop and implement POC 09/25/16 15:16 Consult to Interpret Exam [CONS] Routine Consulting Provider: Guille Martin Consult to Interpret Exam: Interpret EEG 09/16/16 13:18 Consult to Neurology [CONS] Routine Consulting Provider: [facility] Reason for Consult: AMS, subacute infarct Time Notified: 12:00 Call Completed: Yes 09/16/16 14:40 Consult to Speech Therapy [CONS] Stat Comment: Evaluate, develop and implement POC Reason for Consult: NPO d/t stroke Call Completed: No Hospital course: Ms. Hayes is a 65 year old female - Time Spent with Patient Total time spent providing and/or coordinating discharge services: - Constitutional Vitals: Temp Pulse Resp BP Pulse Ox 98.9 F 79 16 177/98 97 09/29/16 11:00 09/29/16 11:00 09/29/16 11:00 09/29/16 11:00 09/29/16 11:00 - Attending Attestation I examined this patient and my medical decision-making was reviewed with the [place] MACHINE OPERATOR/PA/Advanced Practice Nurse/Resident Physician. I agree with the documented findings, disposition and treatment plan as described except to the extent set forth below.
--- NOTE | 2016-09-29 09:51 | Physician Discharge Referral ---
Addendum entered and electronically signed by Guanako Lewis DO 09/29/16 12:46: Spoke with Dietitian, Janeen Carcamo who recommended the follow diet orders: bolus Jevity 1.5 4 cans/day with 100 ml water flushes before and after each can. Continue mechanically altered diet, ensure 1 can/day. Pt is a total assist with meals. Tube feeding will provide 1420 calories, 60 grams protein, 1520 total water. Original Note: <Guanako Lewis - Last Filed: 09/29/16 09:49> Extended[facility] Referral Info Transfer To: [facility] Provider in Charge: Zeke West MD Provider in Charge after Transfer: PCP Institutional Level of Care: Skilled - Diagnosis (2) Aspiration pneumonia due to gastric secretions Priority: Secondary Status: Resolved (3) Hypertension Priority: Secondary Status: Chronic (4) CKD (chronic kidney disease) Priority: Secondary Status: Chronic (5) Meningioma Priority: Secondary Status: Chronic (7) Altered mental status Priority: Primary Status: Acute (8) Anorexia Priority: Secondary Status: Acute - Transfer Medications Prescriptions: Aspirin 325 mg GTUBE DAILY #30 tablet Benztropine [Cogentin] 1 mg GTUBE BID #60 tablet Carvedilol [Coreg] 25 mg GTUBE BID #60 tablet Dexamethasone [Decadron] 2 mg PO DAILY #30 tablet Lactose-Reduced Food/Fiber [Jevity 1.5 Miguel Liquid] 1 can GTUBE QID #24 can Ranitidine Oral Soln [Zantac] 150 mg GTUBE DAILY 30 Days Spironolactone [Aldactone] 25 mg GTUBE BID #30 tablet Terazosin [Hytrin] 2 mg GTUBE HS #60 capsule Home Medications: Simvastatin [Zocor] 20 mg PO HS 02/07/16 [History] Calcium Polycarbophil [Fiber-Caps] 625 mg PO QID PRN 05/22/16 [History] Cholecalciferol (Vitamin D3) [Vitamin D3] 50,000 unit PO QWEEK 07/21/16 [History ] Docusate [Colace] 100 mg PO DAILY PRN 07/21/16 [History] Ferrous Sulfate 325 mg PO TID 07/21/16 [History] Mirtazapine [Remeron] 15 mg PO HS 07/21/16 [History] Oxybutynin [Ditropan] 5 mg PO BID 07/21/16 [History] Quetiapine Fumarate [Seroquel] 200 mg PO HS 07/21/16 [History] RisperiDONE [Risperdal] 1 mg PO HS 07/21/16 [History] Hydralazine HCl 100 mg PO TID 7 Days 08/20/16 [Rx] Albuterol Sulfate [Albuterol Inhaler] 2 puff IH Q4HR 09/16/16 [History] Budesonide/Formoterol 160/4.5 [Symbicort 160/4.5] 2 puff IH BID 09/16/16 [ History] Furosemide [Lasix] 20 mg PO DAILY 09/16/16 [History] Insulin DETEMIR [Levemir] 6 unit SQ BID 09/16/16 [History] Ipratropium [ATROVENT Inhaler] 2 puff IH QID 09/16/16 [History] Lisinopril [Zestril] 10 mg PO DAILY 09/16/16 [History] Polyethylene Glycol 3350 [MiraLAX] 17 gm PO DAILY 09/16/16 [History] Aspirin 325 mg GTUBE DAILY #30 tablet 09/29/16 [Rx] Benztropine [Cogentin] 1 mg GTUBE BID #60 tablet 09/29/16 [Rx] Carvedilol [Coreg] 25 mg GTUBE BID #60 tablet 09/29/16 [Rx] Dexamethasone [Decadron] 2 mg PO DAILY #30 tablet 09/29/16 [Rx] Lactose-Reduced Food/Fiber [Jevity 1.5 Miguel Liquid] 1 can GTUBE QID #24 can 09/29 [Rx] Ranitidine Oral Soln [Zantac] 150 mg GTUBE DAILY 30 Days 09/29/16 [Rx] Spironolactone [Aldactone] 25 mg GTUBE BID #30 tablet 09/29/16 [Rx] Terazosin [Hytrin] 2 mg GTUBE HS #60 capsule 09/29/16 [Rx] Allergies/Adverse Reactions: Allergies ciprofloxacin [From Cipro] Adverse Reaction (Verified 12/09/15 21:28) Hives sulfamethoxazole [From Bactrim] Adverse Reaction (Verified 12/09/15 21:28) See Comments trimethoprim [From Bactrim] Adverse Reaction (Verified 12/09/15 21:28) See Comments - Respiratory Orders None Smoking Cessation: Smoking cessation has been advised. For more information, call the [place] Tobacco Quit Line at 6-907-FZCWNOW. - Ancillary Orders May use pressure relief devices daily prn, May go on SANJAY w/family/respon green party w /meds at nurse discretion PRN, May consult with Dentist, Truck Shop Supervisor, Custom Framing Specialist PRN - Advance Directives Code Status: Full Code - Mobility Orders Bedrest - Rehabiliation Orders Rehab Potential: Fair Rehab Orders: Sternal Precautions, ROM Exercises, Evaluation for Physical Therapy, Evaluation for Occupational Therapy, Evaluation for Speech Therapy - Treatments Skin tear care topically daily PRN per policy, May check for fecal impaction rectally daily PRN, Fleet enema rectally every other day PRN cleansing purposes - Diet Orders Mechanical Soft (with addition of Ensure and tube feeds) House Supplement per Dietary: supplement lunch/dinner with chocolate Ensure Tube Feedings (type/amount/rate): Jevity 15 @ 20 ml/hr, advanced by 10 ml q8H to goal rate of 40 ml/hr CERTIFICATION: I certify that the transfer of the above named patient to an Extended Care Facility is necessary for the continuing treatment of the diagnosis listed. The above information is true and accurate reflection of patient's current condition. Confidential - Redisclosure prohibited without a patient's written consent. <Zeke West P - Last Filed: 09/29/16 18:23> - Diagnosis (1) Acute metabolic encephalopathy Status: Acute (2) Meningioma Status: Chronic (3) Anorexia Status: Acute (4) Schizophrenia Status: Chronic (5) Aspiration pneumonia due to gastric secretions Status: Resolved - Respiratory Orders Smoking Cessation: Smoking cessation has been advised. For more information, call the [place] [employer] Quit Line at 7-038-WEWENOW. CERTIFICATION: I certify that the transfer of the above named patient to an Extended Care Facility is necessary for the continuing treatment of the diagnosis listed. The above information is true and accurate reflection of patient's current condition. Confidential - Redisclosure prohibited without a patient's written consent.
[2016-09-29] MEDS ORDERED: FLU VACC QS2016-17 36MOS UP/PF 0.5 ML SYRINGE IM ONE (11:18)
[2016-09-29 11:49] VITALS: BP 177/98
== END 2016-09-29 18:52 | DRG 52 ==
LOC: 2NENU 17:38 → EMEROO 17:38 → SUATTDRO 21:22 → 2NENU 23:17 → SUATTDRO 09-16 10:25
PROVIDERS: ADMIT Internal Medicine; ATTEND Internal Medicine

== ENCOUNTER 2016-11-10 16:47 | Inpatient (IN) ==
[2016-11-10] MEDS ORDERED: Albuterol 2.5 MG/3 ML NEBULIZER IH ONE (17:02)
[2016-11-10] MEDS ORDERED: 0.9 % Sodium Chloride 1,000 ML IVC ONE ×3 (17:03→19:33)
[2016-11-10] MEDS ORDERED: Insulin Human Regular 10 UNIT in 0.9 % Sodium Chloride 10 ML IV ONE (17:03)
[2016-11-10] MEDS ORDERED: *HR* Dextrose 50 % in Water (Syg) 50 ML SYRINGE IVP ONE (17:03)
--- NOTE | 2016-11-10 17:37 | Emergency Department Note ---
Disposition Clinical Impression: Hyperkalemia, Dehydration Acute kidney failure Qualifiers: Acute renal failure type: unspecified Qualified Code(s): N17.9 - Acute kidney failure, unspecified Disposition: Admitted As Inpatient Condition: Good Instructions: Hyperkalemia (ED) Referrals: NO,PCP [Non-Partnered Physician] - Forms: ED Satisfaction Letter Time of Disposition: 19:22 Recheck wound or abnormal lab - General Chief Complaint: ED Recheck/Abnormal Lab/Rx Stated Complaint: high K Time Seen by Provider: 11/10/16 16:54 Source: patient, EMS Limitations: no limitations Nursing Notes Reviewed: Yes Vital Signs Reviewed: Yes - History of Present Illness HPI Narrative: Patient is 66-year-old female from the custodial presents with hyperkalemia. We reviewed the chart she was given Kayexalate 15 g Lasix 40 mg IM and albuterol inhaler was sent here for further treatment. The patient herself denies any complaints in her baseline state of health Pt Subjective Complaint: abnormal lab(s) (POTASSIUM 7.3) Associated symptoms: none - Related Data Home Medications Medication Instructions Recorded Confirmed Simvastatin [Zocor] 20 mg PO HS 02/07/16 09/16/16 Calcium Polycarbophil [Fiber-Caps] 625 mg PO QID PRN 05/22/16 09/16/16 Cholecalciferol (Vitamin D3) 50,000 unit PO QWEEK 07/21/16 09/16/16 [Vitamin D3] Docusate [Colace] 100 mg PO DAILY PRN 07/21/16 09/16/16 Ferrous Sulfate 325 mg PO TID 07/21/16 09/16/16 Mirtazapine [Remeron] 15 mg PO HS 07/21/16 09/16/16 Oxybutynin [Ditropan] 5 mg PO BID 07/21/16 09/16/16 Quetiapine Fumarate [Seroquel] 200 mg PO HS 07/21/16 09/16/16 RisperiDONE [Risperdal] 1 mg PO HS 07/21/16 09/16/16 Albuterol Sulfate [Albuterol 2 puff IH Q4HR 09/16/16 09/16/16 Inhaler] Budesonide/Formoterol 160/4.5 2 puff IH BID 09/16/16 09/16/16 [Symbicort 160/4.5] Furosemide [Lasix] 20 mg PO DAILY 09/16/16 09/16/16 Lisinopril [Zestril] 10 mg PO DAILY 09/16/16 09/16/16 Polyethylene Glycol 3350 [MiraLAX] 17 gm PO DAILY 09/16/16 09/16/16 Glucagon,Human Recombinant 1 mg IM ONCE PRN 11/10/16 11/10/16 [Glucagen] GuaiFENesin/Dextromethorphan 1 each PO BID 11/10/16 11/10/16 [Mucinex Dm ER 600-30 mg Tablet] Insulin ASPART [NovoLOG] 0 unit SQ TIDWM 11/10/16 11/10/16 Insulin Glargine,Hum.rec.anlog 10 unit SQ BID 11/10/16 11/10/16 [Basaglar Kwikpen U-100] Lactose-Reduced Food/Fiber [Jevity 237 ml GTUBE AD 11/10/16 11/10/16 1.5 Miguel Liquid] Nitrofurantoin Monohyd/M-Cryst 100 mg PO BID 11/10/16 11/10/16 [Macrobid 100 mg Capsule] Ranitidine HCl [Acid Office Director] 150 mg GTUBE DAILY 11/10/16 11/10/16 Previous Rx's Medication Instructions Recorded Hydralazine HCl 100 mg PO TID 7 Days 08/20/16 Aspirin 325 mg GTUBE DAILY #30 tablet 09/29/16 Benztropine [Cogentin] 1 mg GTUBE BID #60 tablet 09/29/16 Carvedilol [Coreg] 25 mg GTUBE BID #60 tablet 09/29/16 Dexamethasone [Decadron] 2 mg PO DAILY #30 tablet 09/29/16 Spironolactone [Aldactone] 25 mg GTUBE BID #30 tablet 09/29/16 Terazosin [Hytrin] 2 mg GTUBE HS #60 capsule 09/29/16 Allergies Allergy/AdvReac Type Severity Reaction Status Date / Time ciprofloxacin [From Cipro] AdvReac Hives Verified 12/09/15 21:28 sulfamethoxazole AdvReac See Verified 12/09/15 21:28 [From Bactrim] Comments trimethoprim [From Bactrim] AdvReac See Verified 12/09/15 21:28 Comments All systems ED: reviewed and negative except as stated. Constitutional: Denies: fever, chills Gastrointestinal: Denies: nausea, vomiting, diarrhea Past Medical History - Past Medical History Source: patient, old records reviewed, obtained from family, nursing notes reviewed Medical history: Reports: cirrhosis, COPD, diabetes, hypertension, renal disease , other Surgical history: Reports: cholecystectomy Psychiatric history: Reports: schizophrenia LOGGER history: Reports: no LOGGER history - Social History Smoking Status: Unknown if ever smoked Smokeless Tobacco Status: No Alcohol use: Reports: none Drug use: Reports: none Physical Exam - General Limitations: no limitations General appearance: alert - Head Head exam: atraumatic, normocephalic, normal inspection - Eye Eye exam: Present: normal appearance, PERRL, EOMI - ENT ENT exam: normal exam, normal oropharynx, mucous membranes moist - Neck Neck exam: Present: normal inspection, full ROM, trachea midline - Chest Chest inspection: Present: normal inspection, symmetric chest wall rise - Respiratory Respiratory exam: Present: normal lung sounds bilaterally - Cardiovascular Cardiovascular exam: Present: regular rate, normal rhythm, normal heart sounds - Abdominal Exam Abdominal exam: Present: soft, Non-Tender, other (g-tube). Absent: tenderness, distention, guarding, rebound, rigidity - Neurological Exam Neurological exam: Present: alert - Psychiatric Psychiatric exam: Present: normal affect - Skin Skin exam: Present: warm, dry, intact, normal color Course Vital Signs Temperature 98.5 F 11/10/16 16:49 Pulse Rate 79 11/10/16 16:49 Respiratory Rate 16 11/10/16 16:49 Blood Pressure 164/103 11/10/16 16:49 O2 Sat by Pulse Oximetry 97 11/10/16 16:49 Temperature 98.5 F 11/10/16 16:49 Pulse Rate 80 11/10/16 19:46 Respiratory Rate 16 11/10/16 19:46 Blood Pressure 190/91 11/10/16 19:46 O2 Sat by Pulse Oximetry 93 L 11/10/16 19:46 Oxygen Delivery Oxygen Delivery Room Air Recheck wound or abnormal lab - Differential Diagnosis Likely: encounter for medication refill, encounter for recheck of burn - Medical Records Medical records reviewed: Yes I reviewed the patient's medical records. - Lab Data Lab results reviewed: Yes I reviewed the patient's lab results. Result diagrams: 11/10/16 17:47 02/20/17 17:47 Lab Results 11/10/16 11/10/16 11/10/16 Range/Units 17:47 17:47 17:47 WBC 18.8 H (4.3-11.1) K/mcL RBC 3.40 L (3.82-4.97) M/mcL Hgb 10.0 L (11.5-15.4) g/dL Hct 32.1 L (35.3-44.9) % MCV 94.4 (83.0-100.0) fL MCH 29.4 (28.0-33.3) pg MCHC 31.2 L (31.6-35.5) g/dL RDW 13.2 (11.5-14.5) % Plt Count 341 (140-400) K/mcL MPV 10.3 (9.4-12.4) fL Immature Gran % 1.3 (0-4) % Seg Neutrophils % 86.2 % Lymphocytes % 8.6 % Monocytes % 3.5 % Eosinophils % 0.2 % Basophils % 0.2 % Neutrophils # 16.2 H (1.6-8.9) K/mcL Lymphocytes # 1.6 (0.6-4.6) K/mcL Monocytes # 0.7 (0.0-1.3) K/mcL Eosinophils # 0.0 (0.0-0.6) K/mcL Basophils # 0.0 (0.0-0.2) K/mcL PT 9.9 (9.4-12.1) Seconds INR 0.9 APTT 27.6 (26.0-36.0) Seconds Sodium 128 L (136-145) mEq/L Potassium 7.3 H* (3.5-4.5) mEq/L Chloride 93 L (98-109) mEq/L Carbon Dioxide 26 (19-29) mEq/L BUN 105 H (7-20) mg/dL Creatinine 2.22 H (0.57-1.11) mg/dL Est GFR ( Amer) 27 L (> 60) Est GFR (Non-Af Amer) 22 L (> 60) BUN/Creatinine Ratio 47 H (6-26) Glucose 361 H (70-99) mg/dL Calculated Osmolality 314 H (280-300) Calcium 9.1 (8.6-10.8) mg/dL Magnesium (1.6-2.6) mg/dL Troponin I (0-0.03) ng/mL TSH 1.557 (0.350-4.840) mcIU/mL 11/10/16 11/10/16 Range/Units 17:47 17:47 WBC (4.3-11.1) K/mcL RBC (3.82-4.97) M/mcL Hgb (11.5-15.4) g/dL Hct (35.3-44.9) % MCV (83.0-100.0) fL MCH (28.0-33.3) pg MCHC (31.6-35.5) g/dL RDW (11.5-14.5) % Plt Count (140-400) K/mcL MPV (9.4-12.4) fL Immature Gran % (0-4) % Seg Neutrophils % % Lymphocytes % % Monocytes % % Eosinophils % % Basophils % % Neutrophils # (1.6-8.9) K/mcL Lymphocytes # (0.6-4.6) K/mcL Monocytes # (0.0-1.3) K/mcL Eosinophils # (0.0-0.6) K/mcL Basophils # (0.0-0.2) K/mcL PT (9.4-12.1) Seconds INR APTT (26.0-36.0) Seconds Sodium (136-145) mEq/L Potassium (3.5-4.5) mEq/L Chloride (98-109) mEq/L Carbon Dioxide (19-29) mEq/L BUN (7-20) mg/dL Creatinine (0.57-1.11) mg/dL Est GFR ( Amer) (> 60) Est GFR (Non-Af Amer) (> 60) BUN/Creatinine Ratio (6-26) Glucose (70-99) mg/dL Calculated Osmolality (280-300) Calcium (8.6-10.8) mg/dL Magnesium 2.0 (1.6-2.6) mg/dL Troponin I 0.01 (0-0.03) ng/mL TSH (0.350-4.840) mcIU/mL - EKG Data EKG attestation: Yes I reviewed and interpreted this EKG. EKG shows normal: sinus rhythm Rate: normal Rhythm: NSR [place]/QRS: normal Hyperacute T waves: v4 Critical Care Time Critical Care Time: Yes Total Critical Care Time: 40 Attestation: Critical care performed: Time is exclusive of separately billable procedures. Time includes: direct patient care, patient reassessment, coordination of patient care, interpretation of data (laboratory data, radiology data, and respiratory data), review of patient's medical records, medical consultation and documentation of patient care. Procedures included in critical care time: Procedures excluded from critical care time:
[2016-11-10 17:57] LABS: Basophils % 0.2 %; Eosinophils % 0.2 %; Hematocrit 32.1 % (35.3-44.9); Immature Granulocytes % 1.3 % (0-4); Lymphocytes # 1.6 K/mcL (0.6-4.6); Lymphocytes % 8.6 %; Mean Corpuscular HGB Conc 31.2 g/dL (31.6-35.5); Mean Corpuscular Hemoglobin 29.4 pg (28.0-33.3); Mean Corpuscular Volume 94.4 fL (83.0-100.0); Mean Platelet Volume 10.3 fL (9.4-12.4); Monocytes # 0.7 K/mcL (0.0-1.3); Monocytes % 3.5 %; Neutrophils # 16.2 K/mcL (1.6-8.9); Platelet Count 341 K/mcL (140-400); Red Cell Distribution Width 13.2 % (11.5-14.5); Segmented Neutrophils % 86.2 %
[2016-11-10 18:03] LABS: INR 0.9; Prothrombin Time 9.9 Seconds (9.4-12.1)
[2016-11-10 18:06] LABS: Activated Partial Thrombo Time 27.6 Seconds (26.0-36.0)
[2016-11-10 18:09] LABS: Calcium 9.1 mg/dL (8.6-10.8)
[2016-11-10 18:31] LABS: Thyroid Stimulating Hormone 1.557 mcIU/mL (0.350-4.840)
[2016-11-10 18:45] LABS: Potassium 7.3 mEq/L (3.5-4.5)
[2016-11-10] MEDS ORDERED: Calcium Gluconate 1,000 MG in D5% in Water 100 ML IVPB ONE (19:40)
[2016-11-10] MEDS ORDERED: Sodium Bicarbonate 50 MEQ/50 ML VIAL IVP ONE (19:48)
[2016-11-10] MEDS ORDERED: cloNIDine HCl 0.1 MG TABLET PO ONE (19:50)
[2016-11-10 19:58] LABS: Bilirubin,Urine Negative (Negative); Blood,Urine Moderate (Negative); Clarity,Urine Cloudy (Clear); Color,Urine Yellow (Yellow); Glucose,Urine (UA) 250 mg/dL (Normal); Ketones,Urine Negative (Negative); Leukocyte Esterase,Urine Large (Negative); Nitrite,Urine Negative (Negative); PH,Urine 7.5 pH Units (5.0-8.0); Protein,Urine 100 mg/dL (Neg-Trace); Specific Gravity,Urine 1.009 (1.010-1.025); Urobilinogen,Urine Normal (Normal)
[2016-11-10 20:04] LABS: Bacteria,Urine None Seen per hpf (None-Few); Hyaline Casts,Urine None Seen per lpf (None-Few); RBC,Urine 30-50 per hpf (0-3); Squamous Epithelial Cell,Urine Many per lpf (None-Few); WBC,Urine TNTC per hpf (0-3)
--- NOTE | 2016-11-10 20:51 | Internal Med History&Physical ---
Date of Encounter: 11/10/16 Time of Encounter: 20:50 Assessment and Plan (1) Hyperkalemia Current visit: Yes Status: Acute Unclear etiology at this point, but likely influenced by her hyperglycemia and dehydrated state Patient did present with potassium of 7.3, which was unchanged from this morning 's lab result She did receive multiple doses of Kayexalate, insulin and Lasix, and also received calcium gluconate in the emergency department EKG did demonstrate hyperacute T waves in V4, will monitor on telemetry to observe for any arrhythmia We will continue patient on bicarbonate drip and recheck BMP at 11 PM and again in the morning Monitor for bowel movements after she received her Kayexalate, if she does not have bowel movements we will consider adding lactulose (2) Accelerated hypertension Current visit: No Status: Acute She does have a history of resistant hypertension and her blood pressure is elevated to systolic of 220 while in the emergency department We will start her on a Cardene drip to a goal of SBP within 160-170 Will continue her home antihypertensives but hold her lisinopril and Aldactone to prevent further hyperkalemia (3) Acute on chronic kidney failure Current visit: No Status: Acute Patient does have underlying CKD stage III, borderline stage IV, and presented with creatinine of 2.2 with her baseline being around 1.8 recently Etiology of acute kidney injury most likely prerenal in setting of dehydration and accelerated hypertension Consider nephrology consult and further workup if creatinine does not improve with fluid administration Continue to monitor urine output and electrolytes, avoid nephrotoxic agents (4) Insulin dependent diabetes mellitus Current visit: Yes Status: Chronic She did present with glucose of 361, likely contributing to her hyponatremia We will discontinue home antidiabetic medication and start on medium dose sliding scale insulin q6hr Accu-Cheks (5) COPD (chronic obstructive pulmonary disease) Current visit: No Status: Chronic Patient appears to be breathing comfortably on room air in her lungs are clear No need for sulfamethoxazole at this time, but will continue her home breathing treatments Qualifiers: Qualified Code(s): J44.9 - Chronic obstructive pulmonary disease, unspecified (6) Schizophrenia Current visit: No Status: Chronic I have seen this patient previously and she appears to be at her baseline and is answering questions appropriately We will continue home psychiatric medication Qualifiers: Schizophrenia type: undifferentiated schizophrenia Qualified Code(s): F20.3 - Undifferentiated schizophrenia (7) S/P percutaneous endoscopic gastrostomy (PEG) tube placement Current visit: Yes Status: Chronic Will consult nutrition for tube feed management (8) DVT prophylaxis Current visit: No Status: Acute Heparin 5000 units BID Internal Medicine - H&P: HPI Chief complaint: Abnormal labs, hyperkalemia Admitted From: Long-term Nursing Facility Plans for Post Hospital 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 Hayes is a 66 year old female who presents from the [facility], [facility], where she was found to have hyperkalemia of 7.3. She has history of schizophrenia and has difficulty communicating and is a poor historian. According to the ER staff, patient had her labs drawn earlier today at the [facility] and she was immediately transferred to the hospital due to her high potassium. She was given a dose of Lasix, Kayexalate, insulin and glucose while in the ambulance and received further doses in the emergency department. Her potassium was still elevated at 7.3 at 5:47 PM which was unchanged from her labs drawn initially in this morning. Patient currently denies any pain, shortness of breath, nausea, vomiting. However, she does endorse diarrhea although she is unsure how many movements she has had recently. Past Med Surg Social Fam HX - Past Medical History Medical history: cirrhosis, COPD, diabetes, hypertension, renal disease, other Psychiatric history: schizophrenia - Past Surgical History Surgical History: cholecystectomy - Social History Smoking Status: Unknown if ever smoked Smokeless Tobacco Status: No Alcohol use: none Drug use: none - Family History Father Living Status: Hx Family Cardiac Disorders: Yes Hx Family Respiratory Disorders: No Hx Family Cancer: No Hx Family Neurologic Disorders: No Mother Living Status: Hx Family Cancer: Yes Internal Medicine - H&P: Meds RX: Simvastatin [Zocor] 20 mg PO HS 02/07/16 [History] RX: Calcium Polycarbophil [Fiber-Caps] 625 mg PO QID PRN 05/22/16 [History] RX: Cholecalciferol (Vitamin D3) [Vitamin D3] 50,000 unit PO QWEEK 07/21/16 [ History] RX: Docusate [Colace] 100 mg PO DAILY PRN 07/21/16 [History] RX: Ferrous Sulfate 325 mg PO TID 07/21/16 [History] RX: Mirtazapine [Remeron] 15 mg PO HS 07/21/16 [History] RX: Oxybutynin [Ditropan] 5 mg PO BID 07/21/16 [History] RX: Quetiapine Fumarate [Seroquel] 200 mg PO HS 07/21/16 [History] RX: RisperiDONE [Risperdal] 1 mg PO HS 07/21/16 [History] RX: Hydralazine HCl 100 mg PO TID 7 Days 08/20/16 [Rx] RX: Albuterol Sulfate [Albuterol Inhaler] 2 puff IH Q4HR 09/16/16 [History] RX: Budesonide/Formoterol 160/4.5 [Symbicort 160/4.5] 2 puff IH BID 09/16/16 [ History] RX: Furosemide [Lasix] 20 mg PO DAILY 09/16/16 [History] RX: Lisinopril [Zestril] 10 mg PO DAILY 09/16/16 [History] RX: Polyethylene Glycol 3350 [MiraLAX] 17 gm PO DAILY 09/16/16 [History] RX: Aspirin 325 mg GTUBE DAILY #30 tablet 09/29/16 [Rx] RX: Benztropine [Cogentin] 1 mg GTUBE BID #60 tablet 09/29/16 [Rx] RX: Carvedilol [Coreg] 25 mg GTUBE BID #60 tablet 09/29/16 [Rx] RX: Dexamethasone [Decadron] 2 mg PO DAILY #30 tablet 09/29/16 [Rx] RX: Spironolactone [Aldactone] 25 mg GTUBE BID #30 tablet 09/29/16 [Rx] RX: Terazosin [Hytrin] 2 mg GTUBE HS #60 capsule 09/29/16 [Rx] Glucagon,Human Recombinant [Glucagen] 1 mg IM ONCE PRN 11/10/16 [History] GuaiFENesin/Dextromethorphan [Mucinex Dm ER 600-30 mg Tablet] 1 each PO BID [History] Insulin ASPART [NovoLOG] 0 unit SQ TIDWM 11/10/16 [History] Insulin Glargine,Hum.rec.anlog [Basaglar Kwikpen U-100] 10 unit SQ BID 11/10/16 [History] Lactose-Reduced Food/Fiber [Jevity 1.5 Miguel Liquid] 237 ml GTUBE AD 11/10/16 [ History] Nitrofurantoin Monohyd/M-Cryst [Macrobid 100 mg Capsule] 100 mg PO BID 11/10/16 [History] Ranitidine HCl [Acid Pick Up Driver] 150 mg GTUBE DAILY 11/10/16 [History] Allergies ciprofloxacin [From Cipro] Adverse Reaction (Verified 12/09/15 21:28) Hives sulfamethoxazole [From Bactrim] Adverse Reaction (Verified 12/09/15 21:28) See Comments trimethoprim [From Bactrim] Adverse Reaction (Verified 12/09/15 21:28) See Comments ROS unobtainable: due to mental status All Systems PM: A 10-system review of systems was performed and is negative for pertinent findings except as documented above in the HPI. - Constitutional Vitals: Temp Pulse Resp BP Pulse Ox 98.5 F 80 16 190/91 93 L 11/10/16 16:49 11/10/16 19:46 11/10/16 19:46 11/10/16 19:46 11/10/16 19:46 General appearance: Present: A&O X 2 (She does note that she is in the hospital although does not know exactly where, reports is the year 2015, knows her month and date but not year), pleasant, no acute distress, answers questions appropriately - Head Head exam: Present: atraumatic, normocephalic - Eye Eye exam: Present: PERRL, conjuntiva pink, sclera anicteric - Neck Neck exam general surgery: Present: supple, trachea midline. Absent: lymphadenopathy - Respiratory Respiratory exam: Present: CTAB. Absent: accessory muscle use, rales, rhonchi, wheezes - Cardiovascular Cardiovascular exam: Present: RRR, +S1, +S2. Absent: diastolic murmur, gallop, rubs, systolic murmur - GI/Abdominal GI/Abdominal exam: Present: normal bowel sounds, soft, no peritoneal signs. Absent: distended, tenderness Additional comments: Gtube noted in LUQ, skin looks dry and intact - Extremities Exam Extremities exam: Present: pedal edema (trace pitting), warm, radial pulses palpable and symetrical. Absent: calf tenderness, cyanotic - Neurological Exam Neurological exam: Present: alert, no focal deficits, speech deficit (from schizophrenia, tongue sticks out when talking, but no obvious tardive dyskinesia ). Absent: oriented X3, pronater drift, facial droop - Psychiatric Psychiatric exam: Absent: agitated, anxious - Skin Skin exam: Present: dry, intact Internal Med - H&P Results - Labs CBC & Chem 7: 11/10/16 17:47 11/10/16 17:47
[2016-11-10] MEDS ORDERED: *HR* Dextrose 50 % in Water (Syg) 50 ML SYRINGE IVP PRN (21:05)
[2016-11-10] MEDS ORDERED: Dextrose Gel 15 GM PO PRN ×2 (21:05)
[2016-11-10] MEDS ORDERED: D5% in Water 1,000 ML IV PRN (21:05)
[2016-11-10] MEDS ORDERED: Naloxone 0.4 MG/ML INJ IVP PRN (21:05)
[2016-11-10] MEDS ORDERED: Ondansetron 4 MG/2 ML VIAL IVP PRN (21:05)
[2016-11-10] MEDS: Sodium Bicarbonate 75 MEQ in 0.45 % Sodium Chloride 1,000 ML IVC SCH (21:20)
[2016-11-10] MEDS ORDERED: 0.9 % Sodium Chloride 500 ML ONE (22:19)
[2016-11-10] MEDS: niCARdipine 20 MG/200 ML MLS IVC SCH (22:25)
[2016-11-11] MEDS: Insulin LISPRO 300 UNITS/3 ML VIAL SQ SCH ×4 (01:03→17:45)
[2016-11-11 01:47] LABS: Basophils % 0.1 %; Eosinophils # 0.1 K/mcL (0.0-0.6); Eosinophils % 0.8 %; Hematocrit 28.5 % (35.3-44.9); Hemoglobin 9.1 g/dL (11.5-15.4); Immature Granulocytes % 1.1 % (0-4); Lymphocytes # 2.7 K/mcL (0.6-4.6); Lymphocytes % 16.2 %; Mean Corpuscular HGB Conc 31.9 g/dL (31.6-35.5); Mean Corpuscular Hemoglobin 29.3 pg (28.0-33.3); Mean Corpuscular Volume 91.6 fL (83.0-100.0); Mean Platelet Volume 10.1 fL (9.4-12.4); Monocytes # 0.9 K/mcL (0.0-1.3); Monocytes % 5.1 %; Neutrophils # 12.9 K/mcL (1.6-8.9); Platelet Count 325 K/mcL (140-400); Red Blood Count 3.11 M/mcL (3.82-4.97); Red Cell Distribution Width 13.2 % (11.5-14.5); Segmented Neutrophils % 76.7 %
[2016-11-11 02:00] LABS: Calcium 8.6 mg/dL (8.6-10.8)
[2016-11-11 02:01] LABS: Albumin/Globulin Ratio 0.4 (1.1-2.2); Bilirubin,Total 0.2 mg/dL (0.2-1.2); Calcium 8.8 mg/dL (8.6-10.8); Globulin 4.2 g/dL (2.4-3.5); Magnesium 1.6 mg/dL (1.6-2.6); Phosphorous 4.1 mg/dL (2.3-4.7); Potassium 5.9 mEq/L (3.5-4.5); Total Protein 5.7 g/dL (6.0-8.3)
[2016-11-11 02:03] LABS: Albumin 1.5 g/dL (3.5-5.0); Potassium 5.9 mEq/L (3.5-4.5)
[2016-11-11] MEDS ORDERED: hydrALAZINE 25 MG TABLET GTUBE ONE (03:46)
[2016-11-11] MEDS: *HR* Heparin 5,000 UNIT/ML VIAL SQ SCH ×2 (05:44→17:44)
[2016-11-11] MEDS: niCARdipine 20 MG/200 ML MLS IVC SCH (07:33)
--- NOTE | 2016-11-11 08:04 | Nephrology Consult Note ---
Date of Encounter: 11/11/16 Time of Encounter: 08:02 Assessment and Plan (1) Hyperkalemia Current Visit: Yes Status: Acute Patient has acute kidney injury superimposed on chronic kidney disease. This is competent by severe hyperkalemia. The hyperkalemia is related to worsening renal function along with administration of Aldactone and lisinopril. I believe those medications have been placed on hold. Patient's potassium is improved following medical treatment. I would continue to leave the patient off all flower inhibitors angiotensin blockers and potassium sparing diuretics. She should be placed on a 3 g potassium restricted diet. Blood pressure should be handled with calcium channel blockers and vasodilators. I would continue the IV hydration for at least another 24 hours. (2) Acute kidney failure Current Visit: Yes Status: Acute Qualifiers: Acute renal failure type: unspecified Qualified Code(s): N17.9 - Acute kidney failure, unspecified (3) Chronic kidney disease, stage IV (severe) Current Visit: Yes Status: Acute (4) Accelerated hypertension Current Visit: Yes Status: Acute History of Present Illness - History of Present Illness This is a 66-year-old female who was admitted from the halfway after routine lab studies showed a potassium of 7.3. She has a history of chronic kidney disease with a baseline creatinine of 1.6-1.8. On admission her creatinine was up to 2.22 with a B1 of 105. Her blood pressure was poorly controlled. She was treated with Kayexalate calcium and Lasix. She was thought to have a component of volume depletion. Potassium is improved down to 5.9. Outpatient medications according to records included lisinopril and Aldactone. Creatinine is improved down to 1.90. Patient's only complaint currently is that she feels tired. She denies any nausea vomiting shortness of breath chest pain or edema. She does have a chronic indwelling Galan catheter. Past Med Surg Social Fam HX - Past Medical History Medical history: cirrhosis, COPD, diabetes, hypertension, renal disease, other Psychiatric history: schizophrenia - Past Surgical History Surgical History: cholecystectomy - Social History Smoking Status: Unknown if ever smoked Smokeless Tobacco Status: No Alcohol use: none Drug use: none - Family History Father Living Status: Hx Family Cardiac Disorders: Yes Hx Family Respiratory Disorders: No Hx Family Cancer: No Hx Family Neurologic Disorders: No Mother Living Status: Hx Family Cancer: Yes Medications and Allergies Simvastatin [Zocor] 20 mg PO HS 02/07/16 [History] Calcium Polycarbophil [Fiber-Caps] 625 mg PO QID PRN 05/22/16 [History] Cholecalciferol (Vitamin D3) [Vitamin D3] 50,000 unit PO QWEEK 07/21/16 [History ] Docusate [Colace] 100 mg PO DAILY PRN 07/21/16 [History] Ferrous Sulfate 325 mg PO TID 07/21/16 [History] Mirtazapine [Remeron] 15 mg PO HS 07/21/16 [History] Oxybutynin [Ditropan] 5 mg PO BID 07/21/16 [History] Quetiapine Fumarate [Seroquel] 200 mg PO HS 07/21/16 [History] RisperiDONE [Risperdal] 1 mg PO HS 07/21/16 [History] Hydralazine HCl 100 mg PO TID 7 Days 08/20/16 [Rx] Albuterol Sulfate [Albuterol Inhaler] 2 puff IH Q4HR 09/16/16 [History] Budesonide/Formoterol 160/4.5 [Symbicort 160/4.5] 2 puff IH BID 09/16/16 [ History] Furosemide [Lasix] 20 mg PO DAILY 09/16/16 [History] Lisinopril [Zestril] 10 mg PO DAILY 09/16/16 [History] Polyethylene Glycol 3350 [MiraLAX] 17 gm PO DAILY 09/16/16 [History] Aspirin 325 mg GTUBE DAILY #30 tablet 09/29/16 [Rx] Benztropine [Cogentin] 1 mg GTUBE BID #60 tablet 09/29/16 [Rx] Carvedilol [Coreg] 25 mg GTUBE BID #60 tablet 09/29/16 [Rx] Dexamethasone [Decadron] 2 mg PO DAILY #30 tablet 09/29/16 [Rx] Spironolactone [Aldactone] 25 mg GTUBE BID #30 tablet 09/29/16 [Rx] Terazosin [Hytrin] 2 mg GTUBE HS #60 capsule 09/29/16 [Rx] Glucagon,Human Recombinant [Glucagen] 1 mg IM ONCE PRN 11/10/16 [History] GuaiFENesin/Dextromethorphan [Mucinex Dm ER 600-30 mg Tablet] 1 each PO BID [History] Insulin ASPART [NovoLOG] 0 unit SQ TIDWM 11/10/16 [History] Insulin Glargine,Hum.rec.anlog [Basaglar Kwikpen U-100] 10 unit SQ BID 11/10/16 [History] Lactose-Reduced Food/Fiber [Jevity 1.5 Miguel Liquid] 237 ml GTUBE AD 11/10/16 [ History] Nitrofurantoin Monohyd/M-Cryst [Macrobid 100 mg Capsule] 100 mg PO BID 11/10/16 [History] Ranitidine HCl [Acid Cnc Service Engineer] 150 mg GTUBE DAILY 11/10/16 [History] Allergies ciprofloxacin [From Cipro] Adverse Reaction (Verified 12/09/15 21:28) Hives sulfamethoxazole [From Bactrim] Adverse Reaction (Verified 12/09/15 21:28) See Comments trimethoprim [From Bactrim] Adverse Reaction (Verified 12/09/15 21:28) See Comments Review of Systems Constitutional: as per HPI, weakness Eyes: bilateral: blurred vision (patient denies), diplopia (patient denies) Nose, mouth and throat: no dizziness, no headache(s) Cardiovascular: no chest pain, no palpitations Respiratory: dyspnea on exertion, no cough, no dyspnea Gastrointestinal: no abdominal pain, no change in bowel habits Genitourinary Female: difficulty urinating Integumentary: no hirsutism, no striae Neurological: as per HPI, weakness Psychiatric: no depression, no difficulty concentrating Endocrine: as per HPI Exam - Vital Signs Vital signs: Initial Vital Signs Temp Pulse Resp BP Pulse Ox 98.5 F 79 16 164/103 97 11/10/16 16:49 11/10/16 16:49 11/10/16 16:49 11/10/16 16:49 11/10/16 16:49 Vital Signs - Last 8 Hours Temp Pulse Resp BP Pulse Ox 11/11/16 07:33 98.4 F 81 14 191/84 11/11/16 06:00 78 149/70 11/11/16 05:30 73 145/70 11/11/16 05:00 83 144/71 11/11/16 04:30 82 145/73 11/11/16 04:20 98.4 F 83 13 144/68 94 L 11/11/16 04:00 81 144/68 11/11/16 03:30 80 160/75 11/11/16 03:00 80 126/66 Intake and Output 11/10/16 11/11/16 11/11/16 23:59 07:59 15:59 Intake Total 189 / 189 Output Total 750 / 750 Balance -561 / -561 Intake: IV Fluids 89 / 89 Cardene Premix 20mg/200ml 89 / 89 20 mg In 200 ml @ 5 MG/ HR 50 mls/hr IVC .Q4H JANEY Rx#:[id number] Sodium Bicarbonate 75 MEQ 0 / 0 In 0.45% Sodium Chloride 1000 Ml 1000 Ml 1,000 ML @ 125 mls/hr IVC .Q8H36M JANEY Rx#:[id number] Oral 0 / 0 Free Water Intake Amount 100 / 100 Output: Gastric Tube Lavage 0 / 0 Amount Mid Upper Abdomen 0 / 0 Catheter 750 / 750 Other: Stool Size Moderate Stool Consistency soft Stool Color Green Weight 48.2 kg Blood Glucose* 83 Patient Weight 11/11/16 23:59 Weight 48.2 kg - General Appearance Exam: Patient is somewhat somnolent. She responds to verbal stimuli and answers a few questions and drifts back off to sleep. She is in no acute distress. Blood pressures 149/70. She is currently on a Cardene drip as well as a maintenance IV at 125 mL/h. Neck is supple. Lungs sounds otherwise clear. Heart regular rate and rhythm without any murmurs or S4 gallops clicks or rubs. Abdomen shows normal bowel sounds bruits masses, megaly or tenderness. There is no peripheral edema. A Galan catheter is in place. Results - Lab Results 11/12/16 03:20 11/12/16 03:20 Most recent lab results Calcium 8.8 mg/dL (8.6-10.8) 11/11/16 01:36 Phosphorus 4.1 mg/dL (2.3-4.7) 11/11/16 01:36 Magnesium 1.6 mg/dL (1.6-2.6) 11/11/16 01:36 Consult Discharge Plan - Plan Referrals: Lux Arora DO [Primary Care Provider] - 11/19/16 1:00 pm
[2016-11-11] MEDS: Budesonide/Formoterol 160/4.5 MDI IH SCH ×2 (08:06→20:00)
[2016-11-11] MEDS: cloNIDine HCl 0.1 MG TABLET PO SCH ×2 (08:48→20:25)
[2016-11-11] MEDS: amLODIPine 5 MG TABLET PO SCH ×2 (08:49→20:28)
[2016-11-11] MEDS: Pantoprazole 40 MG VIAL IVP SCH (08:50)
[2016-11-11] MEDS: Aspirin 325 MG TABLET GTUBE SCH (08:50)
[2016-11-11] MEDS: hydrALAZINE 25 MG TABLET PO SCH ×3 (09:17→20:25)
[2016-11-11] MEDS: Sodium Bicarbonate 75 MEQ in 0.45 % Sodium Chloride 1,000 ML IVC SCH (10:51)
--- NOTE | 2016-11-11 10:55 | Internal Med Progress Note ---
Date of Encounter: 11/11/16 Time of Encounter: 10:52 - Assessment and plan (1) Acute kidney injury superimposed on chronic kidney disease Current Visit: Yes Status: Acute Assessment and plan: Non-oliguric, possibly secondary to dehydration Patient s/p multiple IVF boluses Improved Adequate urine output Will give an additional 500cc bolus Metabolic alkalosis possibly from dehydration and NaCO#, will stop NaCO3 Associated severe hyperkalemia, no EKG changes Give additional 30g of kayexelate Continue to hold ACEI, Spironolactone, Potassium supplements Hold lasix Patient is very high risk due to IVF hydration for OBDULIA in a setting of CHF, also Hyperkalemia with risk of cardiac arrest in asystole, Continue cardiopulmonary monitoring Strict intake/output monitoring Continue cardiac monitoring (2) Accelerated hypertension Current Visit: Yes Status: Acute Assessment and plan: Improved Nicardipine has been held Continue oral medications, renal input appreciated (3) Dehydration Current Visit: Yes Status: Acute Assessment and plan: As in OBDULIA (4) Hyperkalemia Current Visit: Yes Status: Acute Assessment and plan: As in OBDULIA (5) Insulin dependent diabetes mellitus Current Visit: Yes Status: Chronic Assessment and plan: A1C 6.6 FS currently acceptable on sliding scale insulin, continue same (6) S/P percutaneous endoscopic gastrostomy (PEG) tube placement Current Visit: Yes Status: Chronic Assessment and plan: Resume feeds , nutrition consult appreciated (7) Leukocytosis Current Visit: Yes Status: Acute Assessment and plan: Patient without fever, with leukocytosis with left shift and UA with possible evidence of UTI Start on Ceftriaxone, Urine cultures has been sent Patient has no fever, will continue to monitor Qualifiers: Leukocytosis type: other Qualified Code(s): D72.828 - Other elevated white blood cell count (8) COPD (chronic obstructive pulmonary disease) Current Visit: Yes Status: Chronic Assessment and plan: Not in exacerbation clinically Continue to monitor Qualifiers: COPD type: chronic bronchitis Chronic bronchitis type: unspecified Qualified Code(s): J42 - Unspecified chronic bronchitis (9) Hypertension Current Visit: Yes Status: Chronic Assessment and plan: Controlled now, as in Accelerated HTN Qualifiers: Hypertension type: essential hypertension Qualified Code(s): I10 - Essential (primary) hypertension (10) Schizophrenia Current Visit: Yes Status: Chronic Assessment and plan: Resume home meds Qualifiers: Schizophrenia type: undifferentiated schizophrenia Qualified Code(s): F20.3 - Undifferentiated schizophrenia (11) Tobacco abuse Current Visit: Yes Status: Chronic - Subjective Interval history: Initial encounter EMR reviewed 66 Y/O F with PMH of Schizophrenia, resident of [facility], on PEG tube feeds She has additional PMH of COPD, DM, CKD IV, HTN She is admitted for management of accelerated HTN, OBDULIA on CKD and Severe hyperkalemia She is seen at bedside, able to communicate with few sentences BP has improved, off nicardipine drip, BP 130/70 at time of review Denies new complains - Constitutional Vitals: Temp Pulse Resp BP Pulse Ox 98.4 F 81 14 191/84 94 L 11/11/16 07:33 11/11/16 07:33 11/11/16 08:11 11/11/16 07:33 11/11/16 08:11 General appearance: Present: A&O X 2 (She does note that she is in the hospital although does not know exactly where, reports is the year 2015, knows her month and date but not year), pleasant, no acute distress, answers questions appropriately - Head Head exam: Present: atraumatic, normocephalic - Eye Eye exam: Present: PERRL, conjuntiva pink, sclera anicteric Pupils: Present: PERRL - ENT ENT exam: Present: mucous membranes dry - Neck Neck exam general surgery: Present: normal inspection - Respiratory Respiratory exam: Present: CTAB. Absent: rales, rhonchi - Cardiovascular Cardiovascular exam: Present: RRR, +S1, +S2, systolic murmur - GI/Abdominal Additional comments: PEG tube in-situ site clean and dry, abdomen is soft and non-tender, no palpable masses or organomegaly - Extremities Exam Extremities exam: Absent: pedal edema - Neurological Exam Neurological exam: Present: alert, no focal deficits. Absent: pronater drift, facial droop, speech deficit - Skin Skin exam: Present: dry Internal Medicine: Result - Labs CBC & Chem 7: 11/11/16 01:36 11/11/16 01:36 - ABG Interpretation ABG results: PT/INR, D-dimer PT 9.9 Seconds (9.4-12.1) 11/10/16 17:47 Consult Discharge Plan - Plan Referrals: Lux Arora DO [Primary Care Provider] - 11/19/16 1:00 pm
[2016-11-11] MEDS ORDERED: 0.9 % Sodium Chloride 500 ML IVC ONE (11:03)
--- NOTE | 2016-11-11 18:21 | Electrocardiograph Report ---
[place] [id number] Test Date: 2016-11-10 Pat Name: Grace Hayes Department: 103 Room: 2N12 Gender: F Polisher Hand: : 1950 Requested By: Mino Obrien Order Number: [id number] Reading MD: Yumiko Montes Measurements Intervals [place] Rate: 78 P: 50 MA: 171 QRS: 5 QRSD: 91 T: 78 QT: 377 QTc: 410 Interpretive Statements SINUS RHYTHM LEFT VENTRICULAR HYPERTROPHY AND ST-T CHANGE INTERPRETATION BASED ON A DEFAULT AGE OF 40 YEARS Electronically Signed On 11-11-2016 18:19:15 EST by Yumiko Montes
[2016-11-11] MEDS: risperiDONE 1 MG TABLET PO SCH (20:25)
[2016-11-11] MEDS: Mirtazapine 15 MG TABLET PO SCH (20:27)
[2016-11-12] MEDS: Insulin LISPRO 300 UNITS/3 ML VIAL SQ SCH ×4 (00:07→16:18)
[2016-11-12 04:09] LABS: Basophils % 0.2 %; Eosinophils # 0.3 K/mcL (0.0-0.6); Eosinophils % 1.8 %; Hematocrit 29.3 % (35.3-44.9); Immature Granulocytes % 1.2 % (0-4); Lymphocytes # 3.1 K/mcL (0.6-4.6); Lymphocytes % 18.9 %; Mean Corpuscular HGB Conc 30.7 g/dL (31.6-35.5); Mean Corpuscular Hemoglobin 28.9 pg (28.0-33.3); Mean Corpuscular Volume 94.2 fL (83.0-100.0); Mean Platelet Volume 10.1 fL (9.4-12.4); Monocytes % 5.9 %; Neutrophils # 11.8 K/mcL (1.6-8.9); Platelet Count 334 K/mcL (140-400); Red Blood Count 3.11 M/mcL (3.82-4.97); Red Cell Distribution Width 13.7 % (11.5-14.5)
[2016-11-12 04:17] LABS: Albumin/Globulin Ratio 0.3 (1.1-2.2); Bilirubin,Total 0.2 mg/dL (0.2-1.2); Calcium 8.8 mg/dL (8.6-10.8); Total Protein 5.2 g/dL (6.0-8.3)
[2016-11-12 04:21] LABS: Albumin 1.2 g/dL (3.5-5.0)
[2016-11-12] MEDS: *HR* Heparin 5,000 UNIT/ML VIAL SQ SCH ×2 (05:55→16:17)
--- NOTE | 2016-11-12 08:14 | Nephrology Progress Note ---
Date of Encounter: 11/12/16 Time of Encounter: 08:12 - Assessment and Plan (1) Acute kidney failure Current Visit: Yes Status: Acute Patient has acute kidney injury superimposed on chronic kidney disease. Her renal function is back to her previous baseline. Potassium is improved. The patient will need to stay off CEM inhibitor's angiotensin blockers and potassium sparing diuretics indefinitely. Blood pressure is suboptimal. I will increase her clonidine. Otherwise she is stable from a renal perspective. Qualifiers: Acute renal failure type: unspecified Qualified Code(s): N17.9 - Acute kidney failure, unspecified (2) Hyperkalemia Current Visit: Yes Status: Acute (3) Chronic kidney disease, stage IV (severe) Current Visit: Yes Status: Acute (4) Accelerated hypertension Current Visit: Yes Status: Acute Subjective Interval history: The patient is more alert today. Blood pressure is 167/69. Renal function continues to improve. Potassium is down to 5.0. Objective - Vital Signs Vital signs: Vital Signs Temp Pulse Resp BP Pulse Ox 11/12/16 07:00 98 F 74 16 167/69 93 L 11/12/16 04:21 16 94 L 11/12/16 04:16 98.1 F 70 16 169/77 93 L 11/12/16 00:03 98.2 F 73 15 142/63 93 L 11/11/16 23:45 16 95 11/11/16 20:06 98.3 F 77 15 181/93 92 L 11/11/16 20:02 18 94 L 11/11/16 16:31 18 93 L 11/11/16 15:25 82 11/11/16 15:20 98.8 F 78 18 138/66 93 L 11/11/16 12:05 16 94 L 11/11/16 11:57 79 11/11/16 11:03 98.8 F 83 16 131/70 Intake and Output 11/11/16 11/12/16 11/12/16 23:59 07:59 15:59 Intake Total 0 / 0 0 / 0 Output Total 650 / 650 1130 / 1130 Balance -650 / -650 -1130 / -1130 Intake: Oral 0 / 0 0 / 0 Output: Gastric Tube Lavage 5 / 5 Amount Mid Upper Abdomen 5 / 5 Catheter 650 / 650 1125 / 1125 Other: Stool Size Copious Stool Characteristics Pasty Stool Color Green Weight 47.8 kg Blood Glucose* 136 100 Patient Weight 11/12/16 23:59 Weight 47.8 kg - General Appearance Exam: Patient is more alert. She is in no acute distress. She appears chronically ill. Lungs diminished breath sounds. Heart regular rate and rhythm. Abdomen is soft. PEG tube is in place. There is no lower extremity swelling. - Lab 11/12/16 03:20 11/12/16 03:20 Most recent lab results Calcium 8.8 mg/dL (8.6-10.8) 11/12/16 03:20 Phosphorus 4.1 mg/dL (2.3-4.7) 11/11/16 01:36 Magnesium 1.6 mg/dL (1.6-2.6) 11/11/16 01:36 Consult Discharge Plan - Plan Referrals: Lux Arora DO [Primary Care Provider] - 11/19/16 1:00 pm
[2016-11-12] MEDS: Budesonide/Formoterol 160/4.5 MDI IH SCH ×2 (08:20→20:35)
[2016-11-12] MEDS ORDERED: Vancomycin (wt based) 1,000 MG VIAL IVPB SCH (09:00)
[2016-11-12] MEDS: cloNIDine HCl 0.1 MG TABLET PO SCH ×2 (09:31→20:32)
[2016-11-12] MEDS: Aspirin 325 MG TABLET GTUBE SCH (09:31)
[2016-11-12] MEDS: amLODIPine 5 MG TABLET PO SCH ×2 (09:31→20:32)
[2016-11-12] MEDS: hydrALAZINE 25 MG TABLET PO SCH ×3 (09:31→20:30)
[2016-11-12] MEDS: Pantoprazole 40 MG VIAL IVP SCH (09:32)
--- NOTE | 2016-11-12 12:36 | Internal Med Progress Note ---
Date of Encounter: 11/12/16 Time of Encounter: 10:40 - Assessment and plan (1) Acute kidney injury superimposed on chronic kidney disease Current Visit: Yes Status: Acute Assessment and plan: Non-oliguric, possibly secondary to dehydration Patient s/p multiple IVF boluses Improved Adequate urine output Will give an additional 500cc bolus Metabolic alkalosis possibly from dehydration and NaCO, NaCO3 discontinued 11/11 , CO2 improved Associated severe hyperkalemia, no EKG changes K today 5.0 Will give additional 30g of kayexelate Continue to hold ACEI, Spironolactone, Potassium supplements Hold lasix Strict intake/output monitoring Continue cardiac monitoring (2) Accelerated hypertension Current Visit: Yes Status: Acute Assessment and plan: Improved Nicardipine has been held Continue oral medications, renal input appreciated (3) Dehydration Current Visit: Yes Status: Acute Assessment and plan: As in OBDULIA (4) Hyperkalemia Current Visit: Yes Status: Acute Assessment and plan: As in OBDULIA (5) Insulin dependent diabetes mellitus Current Visit: Yes Status: Chronic Assessment and plan: A1C 6.6 FS currently acceptable on sliding scale insulin, continue same (6) S/P percutaneous endoscopic gastrostomy (PEG) tube placement Current Visit: Yes Status: Chronic Assessment and plan: Resume feeds , nutrition consult appreciated Surgery consulted for PEG tube change as RN noted its leaking (7) Leukocytosis Current Visit: Yes Status: Acute Assessment and plan: Patient without fever, with leukocytosis with left shift and UA with possible evidence of UTI Started on ceftriaxone 11/11 for suspected UTI Urine culture sent 11/11 with GPC Antibiotics have been escalated to Vanco and Zosyn pending sensitivity Patient is high risk due to Vancomycin use, which needs to be monitored for toxicity Follow final urine cultures Qualifiers: Leukocytosis type: other Qualified Code(s): D72.828 - Other elevated white blood cell count (8) Complicated UTI (urinary tract infection) Current Visit: Yes Status: Acute Assessment and plan: As above, indwelling simmons (9) COPD (chronic obstructive pulmonary disease) Current Visit: Yes Status: Chronic Assessment and plan: Not in exacerbation clinically Continue to monitor Qualifiers: COPD type: chronic bronchitis Chronic bronchitis type: unspecified Qualified Code(s): J42 - Unspecified chronic bronchitis (10) Hypertension Current Visit: Yes Status: Chronic Assessment and plan: Controlled now, as in Accelerated HTN Qualifiers: Hypertension type: essential hypertension Qualified Code(s): I10 - Essential (primary) hypertension (11) Schizophrenia Current Visit: Yes Status: Chronic Assessment and plan: Resumed home meds Qualifiers: Schizophrenia type: undifferentiated schizophrenia Qualified Code(s): F20.3 - Undifferentiated schizophrenia (12) Tobacco abuse Current Visit: Yes Status: Chronic (13) Decubitus ulcer Current Visit: Yes Status: Chronic Qualifiers: Pressure ulcer location: sacral region Pressure ulcer stage: stage 2 Qualified Code(s): L89.152 - Pressure ulcer of sacral region, stage 2 - Subjective Interval history: Initial encounter EMR reviewed 66 Y/O F with PMH of Schizophrenia, resident of [facility], on PEG tube feeds She has additional PMH of COPD, DM, CKD IV, HTN She is admitted for management of accelerated HTN, OBDULIA on CKD and Severe hyperkalemia She is seen at bedside today, looks and feels better Denies new complains Potassium is improving, Creatinine and GFR continues to improve, nephrology input appreciated White count improved slightly Urine culture today growing GPC, pending sensitivity, antibiotics have been broadened to Zosyn and Vanco pending final sensitivity - Constitutional Vitals: Temp Pulse Resp BP Pulse Ox 97.9 F 83 16 164/65 89 L 11/12/16 11:36 11/12/16 12:22 11/12/16 11:36 11/12/16 11:36 11/12/16 11:36 General appearance: Present: A&O X 2 (She does note that she is in the hospital although does not know exactly where, reports is the year 2015, knows her month and date but not year), pleasant, no acute distress, answers questions appropriately - Head Head exam: Present: atraumatic, normocephalic - Eye Eye exam: Present: PERRL, conjuntiva pink, sclera anicteric Pupils: Present: PERRL - Neck Neck exam general surgery: Present: supple, trachea midline. Absent: lymphadenopathy - Respiratory Respiratory exam: Present: CTAB. Absent: accessory muscle use, rales, rhonchi, wheezes - Cardiovascular Cardiovascular exam: Present: RRR, +S1, +S2. Absent: diastolic murmur, gallop, rubs, systolic murmur - GI/Abdominal GI/Abdominal exam: Present: normal bowel sounds, soft, no peritoneal signs. Absent: distended, tenderness - Extremities Exam Extremities exam: Present: warm, radial pulses palpable and symetrical. Absent : calf tenderness, cyanotic, pedal edema - Neurological Exam Neurological exam: Present: CN II-XII intact, oriented X3, no focal deficits. Absent: pronater drift, facial droop, speech deficit - Skin Skin exam: Present: dry, intact Internal Medicine: Result - Labs CBC & Chem 7: 11/12/16 03:20 11/12/16 03:20 Labs: Short CBC 11/12/16 Range/Units 03:20 WBC 16.4 H (4.3-11.1) K/mcL Hgb 9.0 L (11.5-15.4) g/dL Hct 29.3 L (35.3-44.9) % Plt Count 334 (140-400) K/mcL Neutrophils # 11.8 H (1.6-8.9) K/mcL BMP 11/12/16 03:20 Sodium 140 Potassium 5.0 H Chloride 103 Carbon Dioxide 30 H BUN 74 H Creatinine 1.63 H Glucose 88 Calcium 8.8 Liver Function 11/12/16 Range/Units 03:20 Total Bilirubin 0.2 (0.2-1.2) mg/dL AST 32 (5-34) Units/L ALT 36 (0-55) Units/L Alkaline Phosphatase 68 (38-126) Units/L Albumin 1.2 L (3.5-5.0) g/dL - ABG Interpretation ABG results: PT/INR, D-dimer PT 9.9 Seconds (9.4-12.1) 11/10/16 17:47 Consult Discharge Plan - Plan Referrals: Lux Arora DO [Primary Care Provider] - 11/19/16 1:00 pm
--- NOTE | 2016-11-12 15:02 | General Surgery Consult Note ---
Date of Encounter: 11/12/16 Time of Encounter: 15:00 Assessment and Plan (1) Feeding tube dysfunction Current Visit: Yes Status: Acute The area with the defect was removed with scissors and the Y-adapter was placed without difficulty. Resume tube feeding and flushes per food safety specialist recommendations Cleanse around peg tube site with soap and water daily and pat dry Surgery will sign off. Thank you for allowing us to participate in the care of this patient. Please call with any further questions/concerns. Follow-up prn Qualifiers: Encounter type: initial encounter Qualified Code(s): T85.598A - Other mechanical complication of other gastrointestinal prosthetic devices, implants and grafts, initial encounter History of Present Illness Consult date: 11/12/16 Reason for consult: other (malfunctioning peg tube) Requesting physician: Renato Staples History of present illness: Ms. Hayes is a 66 year old female who was transferred from a Residential care facility ([place]) due to abnormal labs. She had significant hyperkalemia. She does have a history of schizophrenia and was recently admitted to the hospital for encephalopathy. She had a peg tube placed at that time on 09/24/[address] Call due to dysphagia and malnutrition. Her peg tube is leaking at the connection site due to a pin hole opening. We have been asked to see and evaluate the patient for recommendations. Past Med Surg Social Fam HX - Past Medical History Source: old records reviewed Medical history: cirrhosis, COPD, diabetes, hypertension, renal disease, other Psychiatric history: schizophrenia - Past Surgical History Surgical History: cholecystectomy, other (peg tube placement 09/24/[address] Call) - Social History Smoking Status: Unknown if ever smoked Smokeless Tobacco Status: No Alcohol use: none Drug use: none - Family History Father Living Status: Hx Family Cardiac Disorders: Yes Hx Family Respiratory Disorders: No Hx Family Cancer: No Hx Family Neurologic Disorders: No Mother Living Status: Hx Family Cancer: Yes Medications and Allergies Simvastatin [Zocor] 20 mg PO HS 02/07/16 [History] Calcium Polycarbophil [Fiber-Caps] 625 mg PO QID PRN 05/22/16 [History] Cholecalciferol (Vitamin D3) [Vitamin D3] 50,000 unit PO QWEEK 07/21/16 [History ] Docusate [Colace] 100 mg PO DAILY PRN 10/31/16 [History] Ferrous Sulfate 325 mg PO TID 07/21/16 [History] Mirtazapine [Remeron] 15 mg PO HS 07/21/16 [History] Oxybutynin [Ditropan] 5 mg PO BID 07/21/16 [History] Quetiapine Fumarate [Seroquel] 200 mg PO HS 07/21/16 [History] RisperiDONE [Risperdal] 1 mg PO HS 07/21/16 [History] Hydralazine HCl 100 mg PO TID 7 Days 08/20/16 [Rx] Albuterol Sulfate [Albuterol Inhaler] 2 puff IH Q4HR 09/16/16 [History] Budesonide/Formoterol 160/4.5 [Symbicort 160/4.5] 2 puff IH BID 09/16/16 [ History] Furosemide [Lasix] 20 mg PO DAILY 09/16/16 [History] Lisinopril [Zestril] 10 mg PO DAILY 09/16/16 [History] Polyethylene Glycol 3350 [MiraLAX] 17 gm PO DAILY 09/16/16 [History] Aspirin 325 mg GTUBE DAILY #30 tablet 09/29/16 [Rx] Benztropine [Cogentin] 1 mg GTUBE BID #60 tablet 09/29/16 [Rx] Carvedilol [Coreg] 25 mg GTUBE BID #60 tablet 09/29/16 [Rx] Dexamethasone [Decadron] 2 mg PO DAILY #30 tablet 09/29/16 [Rx] Spironolactone [Aldactone] 25 mg GTUBE BID #30 tablet 09/29/16 [Rx] Terazosin [Hytrin] 2 mg GTUBE HS #60 capsule 09/29/16 [Rx] Glucagon,Human Recombinant [Glucagen] 1 mg IM ONCE PRN 11/10/16 [History] GuaiFENesin/Dextromethorphan [Mucinex Dm ER 600-30 mg Tablet] 1 each PO BID [History] Insulin ASPART [NovoLOG] 0 unit SQ TIDWM 11/10/16 [History] Insulin Glargine,Hum.rec.anlog [Basaglar Kwikpen U-100] 10 unit SQ BID 11/10/16 [History] Lactose-Reduced Food/Fiber [Jevity 1.5 Miguel Liquid] 237 ml GTUBE AD 11/10/16 [ History] Nitrofurantoin Monohyd/M-Cryst [Macrobid 100 mg Capsule] 100 mg PO BID 11/10/16 [History] Ranitidine HCl [Acid Grain Manager] 150 mg GTUBE DAILY 11/10/16 [History] Allergies ciprofloxacin [From Cipro] Adverse Reaction (Verified 12/09/15 21:28) Hives sulfamethoxazole [From Bactrim] Adverse Reaction (Verified 12/09/15 21:28) See Comments trimethoprim [From Bactrim] Adverse Reaction (Verified 12/09/15 21:28) See Comments Review of Systems ROS unobtainable: due to mental status All systems PM: A 10-system review of systems was performed and is negative for pertinent findings except as documented above in the HPI. General Surgery Exam Initial Vital Signs Temp Pulse Resp BP Pulse Ox 98.5 F 79 16 164/103 97 11/10/16 16:49 11/10/16 16:49 11/10/16 16:49 11/10/16 16:49 11/10/16 16:49 - General physical appearance well developed, well nourished, no distress - Eyes PERRL, normal ocular movement - ENT normal mucosa, atraumatic, normocephalic - Neck trachea midline - Respiratory normal respiratory effort, clear to auscultation - Cardiovascular Cardiovascular exam: Present: RRR, 15, 16 - Abdomen Abdomen general surgery: Present: bowel sounds present, soft, non tender, wound (peg tube site secure without surrounding erythema or induration; there is a pin hole opening noted in the tip of the peg tube around the connection site.) - Integumentary Integumentary general surgery: Present: warm and dry - Neurologic Present: CN 2-12 grossly intact - Psychiatric Psychiatric general surgery: Present: oriented to person Exam Initial Vital Signs Temp Pulse Resp BP Pulse Ox 98.5 F 79 16 164/103 97 11/10/16 16:49 11/10/16 16:49 11/10/16 16:49 11/10/16 16:49 11/10/16 16:49 Results - Labs 11/12/16 03:20 11/12/16 03:20 Abnormal lab results WBC 16.4 K/mcL (4.3-11.1) H 11/12/16 03:20 RBC 3.11 M/mcL (3.82-4.97) L 11/12/16 03:20 Hgb 9.0 g/dL (11.5-15.4) L 11/12/16 03:20 Hct 29.3 % (35.3-44.9) L 11/12/16 03:20 MCHC 30.7 g/dL (31.6-35.5) L 11/12/16 03:20 Neutrophils # 11.8 K/mcL (1.6-8.9) H 11/12/16 03:20 Potassium 5.0 mEq/L (3.5-4.5) H 11/12/16 03:20 Carbon Dioxide 30 mEq/L (19-29) H 11/12/16 03:20 BUN 74 mg/dL (7-20) H 11/12/16 03:20 Creatinine 1.63 mg/dL (0.57-1.11) H 11/12/16 03:20 Est GFR ( Amer) 38 (> 60) L 11/12/16 03:20 Est GFR (Non-Af Amer) 32 (> 60) L 11/12/16 03:20 BUN/Creatinine Ratio 45 (6-26) H 11/12/16 03:20 POC Glucose 154 (58-89) H 11/12/16 00:04 Calculated Osmolality 311 (280-300) H 11/12/16 03:20 Serum Total Protein 5.2 g/dL (6.0-8.3) L 11/12/16 03:20 Albumin 1.2 g/dL (3.5-5.0) L 11/12/16 03:20 Globulin 4.0 g/dL (2.4-3.5) H 11/12/16 03:20 Albumin/Globulin Ratio 0.3 (1.1-2.2) L 11/12/16 03:20 Urine Clarity Cloudy (Clear) A 11/10/16 19:45 Ur Specific [place] 1.009 (1.010-1.025) L 11/10/16 19:45 Urine Protein 100 mg/dL (Neg-Trace) H 11/10/16 19:45 Urine Glucose (UA) 250 mg/dL (Normal) H 11/10/16 19:45 Urine Blood Moderate (Negative) H 11/10/16 19:45 Ur Leukocyte Esterase Large (Negative) H 11/10/16 19:45 Urine Microscopic RBC 30-50 per hpf (0-3) H 11/10/16 19:45 Urine Microscopic WBC TNTC per hpf (0-3) H 11/10/16 19:45 Ur Squamous Epith Cells Many per lpf (None-Few) H 11/10/16 19:45 Ur Culture Indicated? YES (NO) A 11/10/16 19:45 Diabetes panel 11/12/16 Range/Units 03:20 Sodium 140 (136-145) mEq/L Potassium 5.0 H (3.5-4.5) mEq/L Chloride 103 (98-109) mEq/L Carbon Dioxide 30 H (19-29) mEq/L BUN 74 H (7-20) mg/dL Creatinine 1.63 H (0.57-1.11) mg/dL Glucose 88 (70-99) mg/dL Calcium 8.8 (8.6-10.8) mg/dL AST 32 (5-34) Units/L ALT 36 (0-55) Units/L Alkaline Phosphatase 68 (38-126) Units/L Albumin 1.2 L (3.5-5.0) g/dL Calcium panel 11/12/16 Range/Units 03:20 Calcium 8.8 (8.6-10.8) mg/dL Albumin 1.2 L (3.5-5.0) g/dL Pituitary panel 11/12/16 Range/Units 03:20 Sodium 140 (136-145) mEq/L Potassium 5.0 H (3.5-4.5) mEq/L Chloride 103 (98-109) mEq/L Carbon Dioxide 30 H (19-29) mEq/L BUN 74 H (7-20) mg/dL Creatinine 1.63 H (0.57-1.11) mg/dL Glucose 88 (70-99) mg/dL Calcium 8.8 (8.6-10.8) mg/dL Adrenal panel 11/12/16 Range/Units 03:20 Sodium 140 (136-145) mEq/L Potassium 5.0 H (3.5-4.5) mEq/L Chloride 103 (98-109) mEq/L Carbon Dioxide 30 H (19-29) mEq/L BUN 74 H (7-20) mg/dL Creatinine 1.63 H (0.57-1.11) mg/dL Glucose 88 (70-99) mg/dL Calcium 8.8 (8.6-10.8) mg/dL Total Bilirubin 0.2 (0.2-1.2) mg/dL AST 32 (5-34) Units/L ALT 36 (0-55) Units/L Alkaline Phosphatase 68 (38-126) Units/L Albumin 1.2 L (3.5-5.0) g/dL All other labs normal. - Imaging Additional studies: Chest X-Ray 11/10/16 19:31 IMPRESSION: 1. No acute abnormality. D/ / Joe Gaspar MD / Joe Gaspar MD Interpreting Provider: Joe Gaspar MD Consult Discharge Plan - Plan Referrals: Lux Arora DO [Primary Care Provider] - 11/19/16 1:00 pm
[2016-11-12] MEDS ORDERED: Piperacillin/Tazobactam 2.25 GM in D5% in Water (Mini-Bag+) 100 ML IVPB SCH (16:00)
[2016-11-12] MEDS: Piperacillin/Tazobactam 3.375 GM in D5% in Water (Mini-Bag+) 100 ML IVPB SCH (17:01)
[2016-11-12] MEDS: risperiDONE 1 MG TABLET PO SCH (20:30)
[2016-11-12] MEDS: Mirtazapine 15 MG TABLET PO SCH (20:30)
[2016-11-13] MEDS: Piperacillin/Tazobactam 3.375 GM in D5% in Water (Mini-Bag+) 100 ML IVPB SCH ×2 (00:08→09:22)
[2016-11-13] MEDS: Insulin LISPRO 300 UNITS/3 ML VIAL SQ SCH ×4 (00:11→17:47)
[2016-11-13] MEDS: *HR* Heparin 5,000 UNIT/ML VIAL SQ SCH ×2 (06:05→16:23)
[2016-11-13 06:10] LABS: Basophils % 0.2 %; Eosinophils # 0.2 K/mcL (0.0-0.6); Eosinophils % 1.5 %; Hematocrit 29.6 % (35.3-44.9); Hemoglobin 9.3 g/dL (11.5-15.4); Immature Platelets 2.9 % (1.1-6.1); Lymphocytes # 2.3 K/mcL (0.6-4.6); Lymphocytes % 17.1 %; Mean Corpuscular HGB Conc 31.4 g/dL (31.6-35.5); Mean Corpuscular Hemoglobin 29.4 pg (28.0-33.3); Mean Corpuscular Volume 93.7 fL (83.0-100.0); Mean Platelet Volume 10.3 fL (9.4-12.4); Monocytes # 0.8 K/mcL (0.0-1.3); Monocytes % 5.8 %; Platelet Count 355 K/mcL (140-400); Red Blood Count 3.16 M/mcL (3.82-4.97); Red Cell Distribution Width 13.4 % (11.5-14.5); Segmented Neutrophils % 74.4 %
[2016-11-13 06:55] LABS: Albumin 1.2 g/dL (3.5-5.0); Albumin/Globulin Ratio 0.3 (1.1-2.2); Bilirubin,Total 0.1 mg/dL (0.2-1.2); Calcium 8.3 mg/dL (8.6-10.8); Globulin 3.9 g/dL (2.4-3.5); Potassium 3.7 mEq/L (3.5-4.5); Total Protein 5.1 g/dL (6.0-8.3)
[2016-11-13] MEDS: Budesonide/Formoterol 160/4.5 MDI IH SCH ×2 (08:04→20:02)
--- NOTE | 2016-11-13 08:23 | Event Note ---
Date of Encounter: 11/13/16 Time of Encounter: 08:23 The patient's renal function is at her previous baseline. Hyperkalemia has resolved. Blood pressures under better control. The ultrasound does show renal calculi but unchanged from previous exams. She has some pelvic caliectasis also unchanged from her previous CT. Nephrology will sign off. Please call again if needed.
[2016-11-13] MEDS: cloNIDine HCl 0.1 MG TABLET PO SCH ×2 (08:59→21:21)
[2016-11-13] MEDS: Aspirin 325 MG TABLET GTUBE SCH (08:59)
[2016-11-13] MEDS: Pantoprazole 40 MG VIAL IVP SCH (08:59)
[2016-11-13] MEDS: amLODIPine 5 MG TABLET PO SCH ×2 (09:00→21:21)
[2016-11-13] MEDS: hydrALAZINE 25 MG TABLET PO SCH ×3 (09:01→21:23)
[2016-11-13] MEDS ORDERED: Vancomycin 750 MG in D5% in Water 250 ML IVPB ONE (09:36)
--- NOTE | 2016-11-13 10:08 | Internal Med Progress Note ---
Date of Encounter: 11/13/16 Time of Encounter: 10:06 - Assessment and plan (1) Acute kidney injury superimposed on chronic kidney disease Current Visit: Yes Status: Acute Assessment and plan: Non-oliguric, possibly secondary to dehydration Patient s/p multiple IVF boluses Improved Adequate urine output Metabolic alkalosis possibly from dehydration and NaCO, NaCO3 discontinued 11/11 , CO2 improved Associated severe hyperkalemia, no EKG changes K today 3.7 Continue to hold ACEI, Spironolactone, Potassium supplements, per renal, this discontinuation will be indefinite Hold lasix Strict intake/output monitoring Continue cardiac monitoring (2) Accelerated hypertension Current Visit: Yes Status: Acute Assessment and plan: Improved Nicardipine has been held Continue oral medications, renal input appreciated Patient was started on amlodipone 5mg bid, clonidine 0.2mg bid, she is on coreg and hydralazine at maximum doses BP today poorly controlled Clonidine has been increased to 0.3mg bid Continue close monitoring (3) Dehydration Current Visit: Yes Status: Acute Assessment and plan: As in OBDULIA (4) Hyperkalemia Current Visit: Yes Status: Acute Assessment and plan: As in OBDULIA (5) Insulin dependent diabetes mellitus Current Visit: Yes Status: Chronic Assessment and plan: A1C 6.6 FS currently acceptable on sliding scale insulin, continue same (6) S/P percutaneous endoscopic gastrostomy (PEG) tube placement Current Visit: Yes Status: Chronic Assessment and plan: Resume feeds , nutrition consult appreciated PEG tube has been replaced (7) Leukocytosis Current Visit: Yes Status: Acute Assessment and plan: Improved Urine with MRSA D/C Vanco and Zosyn Start po doxycycline Qualifiers: Leukocytosis type: other Qualified Code(s): D72.828 - Other elevated white blood cell count (8) Complicated UTI (urinary tract infection) Current Visit: Yes Status: Acute Assessment and plan: As above, indwelling simmons from skilled nursing May need catheter change prior to d/c (9) COPD (chronic obstructive pulmonary disease) Current Visit: Yes Status: Chronic Assessment and plan: Not in exacerbation clinically Continue to monitor Qualifiers: COPD type: chronic bronchitis Chronic bronchitis type: unspecified Qualified Code(s): J42 - Unspecified chronic bronchitis (10) Hypertension Current Visit: Yes Status: Chronic Qualifiers: Hypertension type: essential hypertension Qualified Code(s): I10 - Essential (primary) hypertension (11) Schizophrenia Current Visit: Yes Status: Chronic Qualifiers: Schizophrenia type: undifferentiated schizophrenia Qualified Code(s): F20.3 - Undifferentiated schizophrenia (12) Tobacco abuse Current Visit: Yes Status: Chronic (13) Decubitus ulcer Current Visit: Yes Status: Chronic Qualifiers: Pressure ulcer location: sacral region Pressure ulcer stage: stage 2 Qualified Code(s): L89.152 - Pressure ulcer of sacral region, stage 2 - Subjective Interval history: Initial encounter EMR reviewed 66 Y/O F with PMH of Schizophrenia, resident of [facility], on PEG tube feeds She has additional PMH of COPD, DM, CKD IV, HTN She is admitted for management of accelerated HTN, OBDULIA on CKD and Severe hyperkalemia She is seen at bedside today, looks and feels better Denies new complains Surgery eval appreciated, PEG tube has been changed Hyperkalemia has resolved, Creatinine and GFR continues to improve, nephrology input appreciated White count improved Urine culture today growing MRSA sensitive to Rifampin, Tetracycline, Vancomycin , Bactrim, Linezolid patient with sulfa allergies, hence she cannot have rifampin or bactrim, especially with hyperkalemia Linezolid she cannot have because of multiple psych medications including SSRIs Renal function today slightly worse Will discontinue Vanco and Zosyn Will start doxyxycline po Continue close monitoring - Constitutional Vitals: Temp Pulse Resp BP Pulse Ox 98.2 F 64 16 163/70 94 L 11/13/16 07:00 11/13/16 09:00 11/13/16 08:05 11/13/16 07:00 11/13/16 08:05 General appearance: Present: A&O X 2 (She does note that she is in the hospital although does not know exactly where, reports is the year 2016, knows her month and date but not year), pleasant, no acute distress, answers questions appropriately - Head Head exam: Present: atraumatic, normocephalic - Eye Eye exam: Present: PERRL, conjuntiva pink, sclera anicteric Pupils: Present: PERRL - Neck Neck exam general surgery: Present: supple, trachea midline. Absent: lymphadenopathy - Respiratory Respiratory exam: Present: CTAB. Absent: accessory muscle use, rales, rhonchi, wheezes - Cardiovascular Cardiovascular exam: Present: RRR, +S1, +S2. Absent: diastolic murmur, gallop, rubs, systolic murmur - GI/Abdominal GI/Abdominal exam: Present: normal bowel sounds, soft, no peritoneal signs. Absent: tenderness Additional comments: PEG tube replaced, site is clean and dry - Extremities Exam Extremities exam: Present: normal inspection, warm. Absent: pedal edema - Neurological Exam Neurological exam: Present: alert, no focal deficits, strengths equal and symetr throughout. Absent: pronater drift, facial droop, speech deficit - Skin Skin exam: Present: dry Internal Medicine: Result - Labs CBC & Chem 7: 11/13/16 04:28 11/13/16 04:28 Labs: Short CBC 11/13/16 Range/Units 04:28 WBC 13.5 H (4.3-11.1) K/mcL Hgb 9.3 L (11.5-15.4) g/dL Hct 29.6 L (35.3-44.9) % Plt Count 355 (140-400) K/mcL Neutrophils # 10.0 H (1.6-8.9) K/mcL BMP 11/13/16 04:28 Sodium 144 Potassium 3.7 D Chloride 102 Carbon Dioxide 30 H BUN 65 H Creatinine 1.72 H Glucose 150 H Calcium 8.3 L Liver Function 11/13/16 Range/Units 04:28 Total Bilirubin 0.1 L (0.2-1.2) mg/dL AST 23 (5-34) Units/L ALT 33 (0-55) Units/L Alkaline Phosphatase 68 (38-126) Units/L Albumin 1.2 L (3.5-5.0) g/dL - ABG Interpretation ABG results: PT/INR, D-dimer PT 9.9 Seconds (9.4-12.1) 11/10/16 17:47 - Impressions Impressions Retroperitoneum Ultrasound 11/12/16 14:00 IMPRESSION: 1. Findings suggestive of chronic medical renal disease. 2. There is a stone noted in the midpole of the right kidney, not appreciably changed from a CT on 08/26/2016. 3. There is right-sided pelvocaliectasis and prominent left extrarenal pelvis, not appreciably changed. D/ / 11/12/2016 15:25:41 Chencho Mirza MD / donnie Interpreting Provider: Chencho Mirza MD Consult Discharge Plan - Plan Referrals: Lux Arora DO [Primary Care Provider] - 11/19/16 1:00 pm
[2016-11-13] MEDS ORDERED: cloNIDine HCl 0.1 MG TABLET PO ONE (12:04)
[2016-11-13] MEDS: risperiDONE 1 MG TABLET PO SCH (21:19)
[2016-11-13] MEDS: Mirtazapine 15 MG TABLET PO SCH (21:21)
[2016-11-13] MEDS: Doxycycline 100 MG CAPSULE PO SCH (21:23)
[2016-11-14] MEDS: Insulin LISPRO 300 UNITS/3 ML VIAL SQ SCH ×4 (00:16→18:26)
[2016-11-14 05:47] LABS: Basophils % 0.2 %; Eosinophils # 0.2 K/mcL (0.0-0.6); Eosinophils % 1.5 %; Hematocrit 30.2 % (35.3-44.9); Hemoglobin 9.3 g/dL (11.5-15.4); Immature Granulocytes % 0.8 % (0-4); Lymphocytes # 2.7 K/mcL (0.6-4.6); Lymphocytes % 18.4 %; Mean Corpuscular HGB Conc 30.8 g/dL (31.6-35.5); Mean Corpuscular Hemoglobin 28.5 pg (28.0-33.3); Mean Corpuscular Volume 92.6 fL (83.0-100.0); Mean Platelet Volume 9.9 fL (9.4-12.4); Monocytes # 0.8 K/mcL (0.0-1.3); Platelet Count 370 K/mcL (140-400); Red Blood Count 3.26 M/mcL (3.82-4.97); Red Cell Distribution Width 13.4 % (11.5-14.5); Segmented Neutrophils % 74.1 %
[2016-11-14] MEDS: *HR* Heparin 5,000 UNIT/ML VIAL SQ SCH ×2 (05:58→18:25)
[2016-11-14 06:11] LABS: Calcium 8.5 mg/dL (8.6-10.8); Potassium 3.5 mEq/L (3.5-4.5)
[2016-11-14] MEDS: Budesonide/Formoterol 160/4.5 MDI IH SCH ×2 (07:53→22:00)
[2016-11-14] MEDS: Aspirin 325 MG TABLET GTUBE SCH (08:23)
[2016-11-14] MEDS: cloNIDine HCl 0.1 MG TABLET PO SCH ×2 (08:24→20:35)
[2016-11-14] MEDS: amLODIPine 5 MG TABLET PO SCH ×2 (08:25→20:36)
[2016-11-14] MEDS: Doxycycline 100 MG CAPSULE PO SCH ×2 (08:28→20:34)
[2016-11-14] MEDS: hydrALAZINE 25 MG TABLET PO SCH ×3 (08:29→20:34)
[2016-11-14] MEDS: Pantoprazole 40 MG VIAL IVP SCH (08:30)
--- NOTE | 2016-11-14 13:02 | Internal Med Progress Note ---
Date of Encounter: 11/14/16 Time of Encounter: 11:20 - Assessment and plan (1) Acute kidney injury superimposed on chronic kidney disease Current Visit: Yes Status: Acute Assessment and plan: Non-oliguric, possibly secondary to dehydration Patient s/p multiple IVF boluses Improved Adequate urine output Metabolic alkalosis possibly from dehydration and NaCO, NaCO3 discontinued 11/11 , CO2 improved Associated severe hyperkalemia, no EKG changes K today 3.5 Continue to hold ACEI, Spironolactone, Potassium supplements, per renal, this discontinuation will be indefinite Hold lasix Strict intake/output monitoring Continue cardiac monitoring (2) Accelerated hypertension Current Visit: Yes Status: Acute Assessment and plan: Improved Nicardipine has been held Continue oral medications, renal input appreciated Patient was started on amlodipone 5mg bid, clonidine 0.2mg bid, she is on coreg and hydralazine at maximum doses BP now controlled on Clonidine 0.3 mg bid, coreg and hydralazine continue same (3) Dehydration Current Visit: Yes Status: Acute Assessment and plan: As in OBDULIA (4) Hyperkalemia Current Visit: Yes Status: Acute Assessment and plan: As in OBDULIA (5) Insulin dependent diabetes mellitus Current Visit: Yes Status: Chronic Assessment and plan: A1C 6.6 FS currently acceptable on sliding scale insulin, continue same (6) S/P percutaneous endoscopic gastrostomy (PEG) tube placement Current Visit: Yes Status: Chronic Assessment and plan: Resume feeds , nutrition consult appreciated PEG tube has been replaced (7) Leukocytosis Current Visit: Yes Status: Acute Assessment and plan: Improved from time of admission, slight increase today 11/14 Urine with MRSA D/C Vanco and Zosyn Continue Qualifiers: Leukocytosis type: other Qualified Code(s): D72.828 - Other elevated white blood cell count (8) Complicated UTI (urinary tract infection) Current Visit: Yes Status: Acute Assessment and plan: As above, indwelling simmons from group home May need catheter change prior to d/c (9) COPD (chronic obstructive pulmonary disease) Current Visit: Yes Status: Chronic Assessment and plan: Not in exacerbation clinically Continue to monitor Qualifiers: COPD type: chronic bronchitis Chronic bronchitis type: unspecified Qualified Code(s): J42 - Unspecified chronic bronchitis (10) Hypertension Current Visit: Yes Status: Chronic Assessment and plan: Controlled now, as in Accelerated HTN Qualifiers: Hypertension type: essential hypertension Qualified Code(s): I10 - Essential (primary) hypertension (11) Schizophrenia Current Visit: Yes Status: Chronic Assessment and plan: Resumed home meds Qualifiers: Schizophrenia type: undifferentiated schizophrenia Qualified Code(s): F20.3 - Undifferentiated schizophrenia (12) Tobacco abuse Current Visit: Yes Status: Chronic (13) Decubitus ulcer Current Visit: Yes Status: Chronic Qualifiers: Pressure ulcer location: sacral region Pressure ulcer stage: stage 2 Qualified Code(s): L89.152 - Pressure ulcer of sacral region, stage 2 - Subjective Interval history: 66 Y/O F with PMH of Schizophrenia, resident of [facility], on PEG tube feeds She has additional PMH of COPD, DM, CKD IV, HTN She was admitted for management of accelerated HTN, OBDULIA on CKD and Severe hyperkalemia She is seen at bedside today, looks and feels better Denies new complains PEG tube has been changed and patient is tolerating feeds Hyperkalemia has resolved, Creatinine and GFR continues to improve, nephrology input appreciated White count slightly increased today 14 Patient has MRSA UTI sensitive to Rifampin, Tetracycline, Vancomycin, Bactrim, Linezolid patient with sulfa allergies, hence she cannot have rifampin or bactrim, especially with hyperkalemia Linezolid she cannot have because of multiple psych medications including SSRIs She was started on po doxycycline yesterday I will keep one full day on oral antibiotics, check WBC a.m and anticipate discharge back to half-way if stable on these - Constitutional Vitals: Temp Pulse Resp BP Pulse Ox 98.2 F 66 16 148/70 95 11/14/16 11:35 11/14/16 11:45 11/14/16 11:46 11/14/16 11:35 11/14/16 11:46 General appearance: Present: A&O X 2 (She does note that she is in the hospital although does not know exactly where, reports is the year 2016, knows her month and date but not year), pleasant, no acute distress, answers questions appropriately - Head Head exam: Present: atraumatic, normocephalic - Eye Eye exam: Present: PERRL, conjuntiva pink, sclera anicteric Pupils: Present: PERRL - Neck Neck exam general surgery: Present: supple, trachea midline. Absent: lymphadenopathy - Respiratory Respiratory exam: Present: CTAB. Absent: accessory muscle use, rales, rhonchi, wheezes - Cardiovascular Cardiovascular exam: Present: RRR, +S1, +S2. Absent: diastolic murmur, gallop, rubs, systolic murmur - GI/Abdominal GI/Abdominal exam: Present: normal bowel sounds, soft, no peritoneal signs. Absent: distended, tenderness Additional comments: PEG tube in-situ, no surrounding hyperemia - Extremities Exam Extremities exam: Present: warm, radial pulses palpable and symetrical. Absent : calf tenderness, cyanotic, pedal edema - Neurological Exam Neurological exam: Present: CN II-XII intact, oriented X3, no focal deficits. Absent: pronater drift, facial droop, speech deficit - Skin Skin exam: Present: dry Internal Medicine: Result - Labs CBC & Chem 7: 11/14/16 05:27 11/14/16 05:27 Labs: Short CBC 11/14/16 Range/Units 05:27 WBC 14.9 H (4.3-11.1) K/mcL Hgb 9.3 L (11.5-15.4) g/dL Hct 30.2 L (35.3-44.9) % Plt Count 370 (140-400) K/mcL Neutrophils # 11.0 H (1.6-8.9) K/mcL BMP 11/14/16 05:27 Sodium 138 Potassium 3.5 Chloride 101 Carbon Dioxide 28 BUN 57 H Creatinine 1.60 H Glucose 214 H Calcium 8.5 L - ABG Interpretation ABG results: PT/INR, D-dimer PT 9.9 Seconds (9.4-12.1) 11/10/16 17:47 Consult Discharge Plan - Plan Referrals: Lux Arora DO [Primary Care Provider] - 11/19/16 1:00 pm
[2016-11-14] MEDS: Mirtazapine 15 MG TABLET PO SCH (20:33)
[2016-11-14] MEDS: risperiDONE 1 MG TABLET PO SCH (20:35)
[2016-11-15] MEDS: Insulin LISPRO 300 UNITS/3 ML VIAL SQ SCH ×2 (00:18→06:11)
[2016-11-15] MEDS: *HR* Heparin 5,000 UNIT/ML VIAL SQ SCH (06:09)
[2016-11-15 06:23] LABS: Basophils % 0.2 %; Eosinophils # 0.2 K/mcL (0.0-0.6); Eosinophils % 1.6 %; Hemoglobin 8.8 g/dL (11.5-15.4); Immature Granulocytes % 0.9 % (0-4); Lymphocytes # 2.9 K/mcL (0.6-4.6); Lymphocytes % 22.5 %; Mean Corpuscular HGB Conc 31.4 g/dL (31.6-35.5); Mean Corpuscular Hemoglobin 29.1 pg (28.0-33.3); Mean Corpuscular Volume 92.7 fL (83.0-100.0); Mean Platelet Volume 10.3 fL (9.4-12.4); Monocytes # 0.8 K/mcL (0.0-1.3); Monocytes % 6.5 %; Neutrophils # 8.9 K/mcL (1.6-8.9); Platelet Count 336 K/mcL (140-400); Red Blood Count 3.02 M/mcL (3.82-4.97); Red Cell Distribution Width 13.3 % (11.5-14.5); Segmented Neutrophils % 68.3 %
[2016-11-15 07:43] VITALS: BP 144/69
[2016-11-15] MEDS: Budesonide/Formoterol 160/4.5 MDI IH SCH (07:59)
[2016-11-15] MEDS: cloNIDine HCl 0.1 MG TABLET PO SCH (08:17)
[2016-11-15] MEDS: hydrALAZINE 25 MG TABLET PO SCH (08:17)
[2016-11-15] MEDS: Pantoprazole 40 MG VIAL IVP SCH (08:17)
[2016-11-15] MEDS: Aspirin 325 MG TABLET GTUBE SCH (08:18)
[2016-11-15] MEDS: Doxycycline 100 MG CAPSULE PO SCH (08:18)
[2016-11-15] MEDS: amLODIPine 5 MG TABLET PO SCH (08:18)
--- NOTE | 2016-11-15 08:49 | Physician Discharge Referral ---
ExtendedCare Referral Info Transfer To: [facility] Provider in Charge after Transfer: PCP Institutional Level of Care: Skilled - Diagnosis (1) Acute kidney injury superimposed on chronic kidney disease Priority: Primary Status: Resolved (2) Accelerated hypertension Priority: Primary Status: Resolved (3) Dehydration Priority: Primary Status: Resolved (4) Hyperkalemia Priority: Primary Status: Resolved (5) Insulin dependent diabetes mellitus Priority: Secondary Status: Chronic (6) S/P percutaneous endoscopic gastrostomy (PEG) tube placement Priority: Secondary Status: Chronic (7) Leukocytosis Priority: Primary Status: Acute (8) Complicated UTI (urinary tract infection) Priority: Primary Status: Acute (9) COPD (chronic obstructive pulmonary disease) Priority: Secondary Status: Chronic (10) Hypertension Priority: Secondary Status: Chronic (11) Schizophrenia Priority: Secondary Status: Chronic (12) Tobacco abuse Priority: Secondary Status: Chronic (13) Decubitus ulcer Priority: Secondary Status: Chronic - Transfer Medications Prescriptions: Amlodipine [Norvasc] 5 mg PO BID #60 tablet CloNIDine HCl 0.3 mg PO BID #90 tablet Doxycycline 100 mg PO BID #14 capsule Home Medications: Simvastatin [Zocor] 20 mg PO HS 02/07/16 [History] Calcium Polycarbophil [Fiber-Caps] 625 mg PO QID PRN 05/22/16 [History] Cholecalciferol (Vitamin D3) [Vitamin D3] 50,000 unit PO QWEEK 07/21/16 [History ] Docusate [Colace] 100 mg PO DAILY PRN 07/21/16 [History] Ferrous Sulfate 325 mg PO TID 07/21/16 [History] Mirtazapine [Remeron] 15 mg PO HS 07/21/16 [History] Oxybutynin [Ditropan] 5 mg PO BID 07/21/16 [History] Quetiapine Fumarate [Seroquel] 200 mg PO HS 07/21/16 [History] RisperiDONE [Risperdal] 1 mg PO HS 07/21/16 [History] Hydralazine HCl 100 mg PO TID 7 Days 08/20/16 [Rx] Albuterol Sulfate [Albuterol Inhaler] 2 puff IH Q4HR 09/16/16 [History] Budesonide/Formoterol 160/4.5 [Symbicort 160/4.5] 2 puff IH BID 09/16/16 [ History] Furosemide [Lasix] 20 mg PO DAILY 09/16/16 [History] Polyethylene Glycol 3350 [MiraLAX] 17 gm PO DAILY 09/16/16 [History] Aspirin 325 mg GTUBE DAILY #30 tablet 09/29/16 [Rx] Benztropine [Cogentin] 1 mg GTUBE BID #60 tablet 09/29/16 [Rx] Carvedilol [Coreg] 25 mg GTUBE BID #60 tablet 09/29/16 [Rx] Dexamethasone [Decadron] 2 mg PO DAILY #30 tablet 09/29/16 [Rx] Terazosin [Hytrin] 2 mg GTUBE HS #60 capsule 09/29/16 [Rx] Glucagon,Human Recombinant [Glucagen] 1 mg IM ONCE PRN 11/10/16 [History] GuaiFENesin/Dextromethorphan [Mucinex Dm ER 600-30 mg Tablet] 1 each PO BID [History] Insulin ASPART [NovoLOG] 0 unit SQ TIDWM 11/10/16 [History] Insulin Glargine,Hum.rec.anlog [Basaglar Kwikpen U-100] 10 unit SQ BID 11/10/16 [History] Lactose-Reduced Food/Fiber [Jevity 1.5 Miguel Liquid] 237 ml GTUBE AD 11/10/16 [ History] Ranitidine HCl [Acid Mortgage Or Loan Underwriter] 150 mg GTUBE DAILY 11/10/16 [History] Amlodipine [Norvasc] 5 mg PO BID #60 tablet 11/15/16 [Rx] CloNIDine HCl 0.3 mg PO BID #90 tablet 11/15/16 [Rx] Doxycycline 100 mg PO BID #14 capsule 11/15/16 [Rx] Allergies/Adverse Reactions: Allergies ciprofloxacin [From Cipro] Adverse Reaction (Verified 12/09/15 21:28) Hives sulfamethoxazole [From Bactrim] Adverse Reaction (Verified 12/09/15 21:28) See Comments trimethoprim [From Bactrim] Adverse Reaction (Verified 12/09/15 21:28) See Comments - Respiratory Orders Oxygen / L per min (2L /minute as needed for O2Sat) Smoking Cessation: Smoking cessation has been advised. For more information, call the [place] Tobacco Quit Line at 3-884-PKGG-NOW. 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 150cc water flush [id number] Flush Tube (type/amount/frequency): Free water 150cc q4 hours CERTIFICATION: I certify that the transfer of the above named patient to an Extended Care Facility is necessary for the continuing treatment of the diagnosis listed. The above information is true and accurate reflection of patient's current condition. Confidential - Redisclosure prohibited without a patient's written consent.
--- NOTE | 2016-11-15 08:52 | Discharge Summary ---
Date of Encounter: 11/15/16 Time of Encounter: 08:50 - Discharge Diagnosis (1) Acute kidney injury superimposed on chronic kidney disease Priority: Primary Status: Resolved (2) Accelerated hypertension Priority: Primary Status: Resolved (3) Dehydration Priority: Primary Status: Resolved (4) Hyperkalemia Priority: Primary Status: Resolved (5) Insulin dependent diabetes mellitus Priority: Secondary Status: Chronic (6) S/P percutaneous endoscopic gastrostomy (PEG) tube placement Priority: Secondary Status: Chronic (7) Leukocytosis Priority: Primary Status: Acute Qualifiers: Leukocytosis type: unspecified Qualified Code(s): D72.829 - Elevated white blood cell count, unspecified (8) Complicated UTI (urinary tract infection) Priority: Primary Status: Acute (9) COPD (chronic obstructive pulmonary disease) Priority: Secondary Status: Chronic Qualifiers: COPD type: chronic bronchitis Chronic bronchitis type: unspecified Qualified Code(s): J42 - Unspecified chronic bronchitis (10) Hypertension Priority: Secondary Status: Chronic Qualifiers: Hypertension type: essential hypertension Qualified Code(s): I10 - Essential (primary) hypertension (11) Schizophrenia Priority: Secondary Status: Chronic Qualifiers: Schizophrenia type: undifferentiated schizophrenia Qualified Code(s): F20.3 - Undifferentiated schizophrenia (12) Tobacco abuse Priority: Secondary Status: Chronic (13) Decubitus ulcer Priority: Secondary Status: Chronic Qualifiers: Pressure ulcer location: sacral region Pressure ulcer stage: stage 2 Qualified Code(s): L89.152 - Pressure ulcer of sacral region, stage 2 - Discharge Medications Prescriptions: Amlodipine [Norvasc] 5 mg PO BID #60 tablet CloNIDine HCl 0.3 mg PO BID #90 tablet Doxycycline 100 mg PO BID #14 capsule Home Medications: Simvastatin [Zocor] 20 mg PO HS 02/07/16 [History] Calcium Polycarbophil [Fiber-Caps] 625 mg PO QID PRN 05/22/16 [History] Cholecalciferol (Vitamin D3) [Vitamin D3] 50,000 unit PO QWEEK 07/21/16 [History ] Docusate [Colace] 100 mg PO DAILY PRN 07/21/16 [History] Ferrous Sulfate 325 mg PO TID 07/21/16 [History] Mirtazapine [Remeron] 15 mg PO HS 07/21/16 [History] Oxybutynin [Ditropan] 5 mg PO BID 07/21/16 [History] Quetiapine Fumarate [Seroquel] 200 mg PO HS 07/21/16 [History] RisperiDONE [Risperdal] 1 mg PO HS 07/21/16 [History] Hydralazine HCl 100 mg PO TID 7 Days 08/20/16 [Rx] Albuterol Sulfate [Albuterol Inhaler] 2 puff IH Q4HR 09/16/16 [History] Budesonide/Formoterol 160/4.5 [Symbicort 160/4.5] 2 puff IH BID 09/16/16 [ History] Furosemide [Lasix] 20 mg PO DAILY 09/16/16 [History] Polyethylene Glycol 3350 [MiraLAX] 17 gm PO DAILY 09/16/16 [History] Aspirin 325 mg GTUBE DAILY #30 tablet 09/29/16 [Rx] Benztropine [Cogentin] 1 mg GTUBE BID #60 tablet 09/29/16 [Rx] Carvedilol [Coreg] 25 mg GTUBE BID #60 tablet 09/29/16 [Rx] Dexamethasone [Decadron] 2 mg PO DAILY #30 tablet 09/29/16 [Rx] Terazosin [Hytrin] 2 mg GTUBE HS #60 capsule 09/29/16 [Rx] Glucagon,Human Recombinant [Glucagen] 1 mg IM ONCE PRN 11/10/16 [History] GuaiFENesin/Dextromethorphan [Mucinex Dm ER 600-30 mg Tablet] 1 each PO BID [History] Insulin ASPART [NovoLOG] 0 unit SQ TIDWM 11/10/16 [History] Insulin Glargine,Hum.rec.anlog [Basaglar Kwikpen U-100] 10 unit SQ BID 11/10/16 [History] Lactose-Reduced Food/Fiber [Jevity 1.5 Miguel Liquid] 237 ml GTUBE AD 11/10/16 [ History] Ranitidine HCl [Acid Cloth Laminating Supervisor] 150 mg GTUBE DAILY 11/10/16 [History] Amlodipine [Norvasc] 5 mg PO BID #60 tablet 11/15/16 [Rx] CloNIDine HCl 0.3 mg PO BID #90 tablet 11/15/16 [Rx] Doxycycline 100 mg PO BID #14 capsule 11/15/16 [Rx] Allergies/Adverse Reactions: Allergies ciprofloxacin [From Cipro] Adverse Reaction (Verified 12/09/15 21:28) Hives sulfamethoxazole [From Bactrim] Adverse Reaction (Verified 12/09/15 21:28) See Comments trimethoprim [From Bactrim] Adverse Reaction (Verified 12/09/15 21:28) See Comments Procedures/tests Complete & Pending: Procedures Performed prior 72 hours Category Date Time Status Retroperitoneal Ultrasound - Complete [US Exams 11/12/16 14:00 Completed retroperitoneal comp] [US] Routine Date of admission: 11/11/16 02:47 Primary care physician: Lux Arora DO Consults: 11/12/16 12:36 Consult to Surgery [CONS] Routine Consulting Provider: [facility] Reason for Consult: PEG tube replacement, current one leaking Call Completed: Yes Discharging clinician: Renato Staples Anticipated date of discharge: 11/15/16 - Patient Status Disposition: Transfer SNF Condition: Good Functional capacity at discharge: bed bound Overall status at discharge: patient is back to baseline - Discharge Instructions Follow Up With: Lux Arora DO [Primary Care Provider] - 11/19/16 1:00 pm - Diet and Activity Activity: resume usual activities as tolerated Diet: diabetic diet, low fat, low cholesterol, low salt diet, other (Renal, tube feeds) Interval History: See below Hospital course: 66 Y/O F with PMH of Schizophrenia, resident of [facility], on PEG tube feeds She has additional PMH of COPD, DM, CKD IV, HTN She was admitted for management of accelerated HTN, OBDULIA on CKD and Severe hyperkalemia BP Improved with Nicardipine drip and this was held on second day of antibiotics Renal was consulted for hyperkalemia which slowly responded to medical therapy, there were no EKG changes and patient did not require hemodialysis Patient had leukocytosis without fever, work up showed complicated UTI Patient has MRSA UTI sensitive to Rifampin, Tetracycline, Vancomycin, Bactrim, Linezolid patient with sulfa allergies, hence she cannot have rifampin or bactrim, especially with hyperkalemia Linezolid she cannot have because of multiple psych medications including SSRIs She was started on po doxycycline after final urine culture, as above Galan catheter was changed before discharge Discharged home on doxycycline, recommend 10 more days of po antibiotics Spironolactone, Lisinopril and Lasix were discontinued due to Severe hyperkalemia and OBDULIA on CKD She has been started on amlodipine, Clonidine and Hydralazine, which are new medications for her blood pressure She is also on Coreg and Hydralazine at maximal doses Follow up with PCP at [facility] Patient has a history of tobacco abuse per chart, but states she does not smoke. Time spent discussing smoking cessation with patient: 3 to 10 minutes - Time Spent with Patient Total time spent providing and/or coordinating discharge services: Greater than 30 minutes (45 minutes spent on chart review, face to face encounter, medication reconciliation, prescription and documentation) - Constitutional Vitals: Temp Pulse Resp BP Pulse Ox 97.5 F L 60 16 144/69 93 L 11/15/16 07:42 11/15/16 07:42 11/15/16 08:00 11/15/16 07:42 11/15/16 08:00 General appearance: Present: A&O X 2 (She does note that she is in the hospital although does not know exactly where, reports is the year 2015, knows her month and date but not year), pleasant, no acute distress, answers questions appropriately - Head Head exam: Present: atraumatic, normocephalic - Eye Eye exam: Present: PERRL, conjuntiva pink, sclera anicteric Pupils: Present: PERRL - Neck Neck exam general surgery: Present: supple, trachea midline. Absent: lymphadenopathy - Respiratory Respiratory exam: Present: CTAB - Cardiovascular Cardiovascular exam: Present: RRR, +S1, +S2. Absent: systolic murmur - GI/Abdominal GI/Abdominal exam: Present: normal bowel sounds, soft, no peritoneal signs. Absent: mass, tenderness Additional comments: PEG tube - Extremities Exam Extremities exam: Present: warm, radial pulses palpable and symetrical. Absent : calf tenderness, cyanotic, pedal edema - Neurological Exam Neurological exam: Present: alert, CN II-XII intact, no focal deficits. Absent : pronater drift, facial droop, speech deficit - Skin Skin exam: Present: dry
[2016-11-15] MEDS ORDERED: Aminoglycoside Consult 1 EACH MC ONE (10:09)
== END 2016-11-15 10:10 | DRG 422 ==
LOC: 2ANU 16:47 → EMEROO 16:47 → 2NNU 21:21 → SUATTDRO 11-11 02:47
PROVIDERS: ADMIT Family Medicine; ATTEND Internal Medicine